=== PATIENT | male | born 1970 | race Caucasian/White ===

== ENCOUNTER 2020-05-02 11:55 | Day surgery (SDC) | payer OTHER, SELFPAY ==
--- NOTE | 2020-05-01 08:47 | HO.ANESPROP2 ---
Documented by User: Ashley Olson 05/01/20 08:48 HPI - Anesthesia Eval Consult details Narrative: 49yo M for Colonoscopy PMFSH Past Medical History Medical History (Updated 04/26/20 @ 14:09 by Natali Ortiz) Depression History of ADHD HTN (hypertension) Surgical History Surgical History (Updated 04/26/20 @ 14:12 by Natali Ortiz) H/O colonoscopy History of repair of ACL Hx of arthroscopy of knee Hx of colectomy Hx of left inguinal hernia repair Social History Social History Smoking Status: Current every day smoker Use of substances other than those prescribed or required for medical reasons: No Have you been hit, kicked, punched, or otherwise hurt by someone within the past year? If so, by whom?: No Advance Directives: No Advance Directives Information Provided: No Advance Directives on File: No Meds Allergies Allergy/AdvReac Type Severity Reaction Status Date / Time amoxicillin [Augmentin] AdvReac Severe Nausea and Verified 04/26/20 10:16 Vomiting clavulanic acid [Augmentin] AdvReac Severe Nausea and Verified 04/26/20 10:16 Vomiting NSAIDS Allergy Intermediate renal Uncoded 04/26/20 10:16 insuff Home Medications Medication Instructions Recorded Confirmed Type allopurinol 1 tab PO DAILY 05/01/20 05/01/20 History aspirin [Aspir-81] 05/01/20 05/01/20 History atenolol 1 tab PO DAILY 05/01/20 05/01/20 History bupropion HCl 1 tab PO DAILY 05/01/20 05/01/20 History buspirone 1 tab PO BID 05/01/20 05/01/20 History dextroamphetamine-amphetamine 1 cap PO QAM 05/01/20 05/01/20 History diphenoxylate-atropine 1 tab PO QID 05/01/20 05/01/20 History indomethacin 1 cap PO TID 05/01/20 05/01/20 History lorazepam 1 tab PO DAILY PRN 05/01/20 05/01/20 History Exam Exam Date and Time: May 01, 2020 0847 Height,Weight and Vital Signs: Height 5 ft 6 in Assessment and Plan Assessment Anesthesia Assessment: Chart Reviewed Documented by User: Ashley Hernández 05/02/20 12:49 PMFSH Past Medical History Medical History (Updated 04/26/20 @ 14:09 by Natali Ortiz) Depression History of ADHD HTN (hypertension) Surgical History Surgical History (Updated 04/26/20 @ 14:12 by Natali Ortiz) H/O colonoscopy History of repair of ACL Hx of arthroscopy of knee Hx of colectomy Hx of left inguinal hernia repair Social History Social History Smoking Status: Current every day smoker Use of substances other than those prescribed or required for medical reasons: No Have you been hit, kicked, punched, or otherwise hurt by someone within the past year? If so, by whom?: No Advance Directives: No Advance Directives Information Provided: No Advance Directives on File: No Meds Allergies Allergy/AdvReac Type Severity Reaction Status Date / Time amoxicillin [Augmentin] AdvReac Severe Nausea and Verified 04/26/20 10:16 Vomiting clavulanic acid [Augmentin] AdvReac Severe Nausea and Verified 04/26/20 10:16 Vomiting NSAIDS Allergy Intermediate renal Uncoded 04/26/20 10:16 insuff Home Medications Medication Instructions Recorded Confirmed Type allopurinol 1 tab PO DAILY 05/01/20 05/01/20 History aspirin [Aspir-81] 05/01/20 05/01/20 History atenolol 1 tab PO DAILY 05/01/20 05/01/20 History bupropion HCl 1 tab PO DAILY 05/01/20 05/01/20 History buspirone 1 tab PO BID 05/01/20 05/01/20 History dextroamphetamine-amphetamine 1 cap PO QAM 05/01/20 05/01/20 History diphenoxylate-atropine 1 tab PO QID 05/01/20 05/01/20 History indomethacin 1 cap PO TID 05/01/20 05/01/20 History lorazepam 1 tab PO DAILY PRN 05/01/20 05/01/20 History Exam Airway Mallampati Class: II TM Dist: >3cm Neck ROM: Full Heart: RRrR Lungs: CtA BL Assessment and Plan Assessment Anesthesia Assessment: Anesthesia Plan Discussed and Chart Reviewed Final Anesthetic Review NPO: Yes (Sipmwater with med) ASA Class: II Final Preanesthetic Review: Meds/Allgs Chart Reviewed and Consent Obtained/Reviewed Patient Risk: Intermediate Procedure Risk: Intermediate Anesthetic Plan Anesthetic Plan: MAC: Disposition: Standard PACU
[2020-05-02 12:08] VITALS: BMI 29.0
[2020-05-02 12:13] VITALS: BP 133/69; PULSE 62; RESP 20; TEMP 36.1; O2SAT 96
[2020-05-02] MEDS: Lactated Ringers 1,000 ML 100 ML IVCONT (12:37)
--- NOTE | 2020-05-02 13:05 | MHC.SHP ---
Pre-Procedural Eval Section A The patient is an INPATIENT: No Changes since office visit: No Cold of Flu in the past 2 weeks, No New Medical Problems, No Changes in Medication and No Patient answered all questions The History & Physical has been completed within 30 days and I have reviewed it.: Yes Section B Chief Complaint: hx of colonic polyps Allergies: Allergies Allergy/AdvReac Type Severity Reaction Status Date / Time amoxicillin [Augmentin] AdvReac Severe Nausea and Verified 04/26/20 10:16 Vomiting clavulanic acid [Augmentin] AdvReac Severe Nausea and Verified 04/26/20 10:16 Vomiting NSAIDS Allergy Intermediate renal Uncoded 04/26/20 10:16 insuff Plan I have reviewed the history and physical and performed a pertinent physical examination on my patient. No changes have occurred unless specified.
--- NOTE | 2020-05-02 13:42 | PM.OP ---
Brief Operative Note Date of Service: 05/02/20 Pre-op diagnosis: screening,juvenile polyposis Post-op diagnosis: same (colon polyp) Procedure: colonoscopy Surgeon: Jus Overton Anesthesia: MAC Estimated blood loss (mL): 0 Pathology: other (polyp cecum) Condition: stable Disposition: PACU
[2020-05-02 13:43] VITALS: BP 104/54; PULSE 57; RESP 14; TEMP 37; O2SAT 98
[2020-05-02 13:58] VITALS: BP 119/68; PULSE 48; RESP 16; TEMP 37; O2SAT 99
--- NOTE | 2020-05-02 17:21 | OP_ITS ---
SURGEON: Jus Overton MD INDICATIONS: Personal history of colon polyps and juvenile polyposis syndrome. PREOPERATIVE DIAGNOSIS: POSTOPERATIVE DIAGNOSIS: PROCEDURE PERFORMED: Colonoscopy to the neoterminal ileum with snare polypectomy. ESTIMATED BLOOD LOSS: COMPLICATIONS: ANESTHESIA: ASSISTANTS: SPECIMENS: MEDICATIONS: Monitored anesthesia care. DESCRIPTION OF PROCEDURE: History and physical performed. The risks and benefits of the procedure were explained to the patient. Informed consent was obtained. The patient was placed in left lateral decubitus position. A digital rectal exam was performed and was found to be normal. The Olympus pediatric video colonoscope was introduced into the rectum and advanced to the ileocolonic anastomosis without difficulty. The neoterminal ileum was examined. Examination was performed and the scope was removed. He tolerated the procedure well and was taken to recovery area in stable condition. FINDINGS: There was a patent anastomosis at about 100 cm from the anal verge. At about 90 cm at the level of what would have been the cecum, there was a 6 to 7 mm polyp, which was removed with a snare and recovered via suction. No other polyps were identified. There was some liquid stool coating the mucosa, limiting the examination for detection of small polyps. Retroflexed examination showed small internal hemorrhoids. IMPRESSION: Colon polyp. RECOMMENDATION: Follow up the biopsy results. MD JOHANNE Enamorado/SHEL / [id number] MTDD
== END 2020-05-02 14:19 | disposition home or self-care (01) ==
PROVIDERS: Visit Provider Internal Medicine Gastroenterology
PROC: 0DJD8ZZ Inspection of Lower Intestinal Tract, Via Natural or Artificial Opening Endoscopic (ICD-10-PCS; CPT 45378; principal; 2020-05-02 13:00)
DX: Z12.11 Encounter for screening for malignant neoplasm of colon (principal); Z86.010 Personal history of colon polyps; D12.0 Benign neoplasm of cecum; K64.8 Other hemorrhoids; Z90.49 Acquired absence of other specified parts of digestive tract; Z98.0 Intestinal bypass and anastomosis status; I10 Essential (primary) hypertension; F31.9 Bipolar disorder, unspecified; Z79.899 Other long term (current) drug therapy; Z79.82 Long term (current) use of aspirin; F17.210 Nicotine dependence, cigarettes, uncomplicated; Z88.1 Allergy status to other antibiotic agents; Z88.8 Allergy status to other drugs, medicaments and biological substances; Z86.16 Personal history of COVID-19
CPT/HCPCS: 45385; 88305

== ENCOUNTER 2020-05-10 11:45 | Outpatient (REF) | payer OTHER, SELFPAY ==
--- NOTE | 2020-05-10 11:48 | XR_ITS ---
EXAMINATION: XR LUMBOSACRAL SPINE CLINICAL INFORMATION: Lower back pain COMPARISON: None TECHNIQUE: Three views of the lumbosacral spine. FINDINGS: No fracture or subluxation. Vertebral body height and alignment is maintained. Mild disc space narrowing of L4-L5 and L5-S1. Small endplate osteophytes of the lower lumbar spine with mild facet arthropathy. The sacroiliac joints are symmetric. The visualized sacrum is intact. The bowel gas pattern is unremarkable. XR/XR lumbar spine 2-3V IMPRESSION: Mild degenerative changes of the lower lumbar spine.
== END 2020-05-10 11:46 | disposition home or self-care (01) ==
LOC: HO.HMGCX 11:45
PROVIDERS: Visit Provider Physician Assistant
DX: M54.5 Low back pain (principal)
CPT/HCPCS: 72100

== ENCOUNTER 2022-02-14 12:45 | Emergency (ER) | payer OTHER, SELFPAY ==
[2022-02-14 13:04] VITALS: BP 184/110; BP 187/104; PULSE 101; PULSE 93; RESP 22; TEMP 36.5; O2SAT 100; O2SAT 99; BMI 33.0
--- NOTE | 2022-02-14 13:08 | ED_ITS ---
HPI - General Adult General Chief complaint: ETOH/Substance Use Stated complaint: ?ETOH WITHDRAWAL Time Seen by Provider: 02/14/22 13:07 Source: patient and EMS Mode of arrival: EMS Limitations: no limitations History of Present Illness HPI narrative: Patient is a 51 year old assigned male at with a history of alcohol abuse presenting to the emergency department today for possible alcohol withdrawal. Patient states that he was sober for over a year and 5 days ago, he relapsed. Patient states that he is concerned he is going into withdrawal because he has not had a drink for 3 hours. Patient states that he would just like 1 dose of ativan and then go home to find out patient rehab services for himself. Patient denies any dizziness, lightheadedness, abdominal pain, nausea, vomiting, fever, chills, blurry vision, double vision, loss of vision, chest pain, difficulty breathing, shortness of breath, back pain, night sweats, pain with urination, increased urinary frequency, increased urinary urgency, blood in his urine or stool, syncope or a near syncopal episode, recent trauma or falls, bowel incontinence, bladder incontinence, bowel retention, bladder retention, or any other complaints at this time. Onset (ago): hour(s) Severity: mild Severity scale (1-10): 2 Relieving factors: none Exacerbating factors: none Associated symptoms: denies other symptoms Treatments prior to arrival: none Related Data Home Medications Medication Instructions Recorded Confirmed aspirin 81 mg tablet,delayed 05/01/20 12/16/20 release atenolol 100 mg tablet 1 tab PO DAILY 05/01/20 12/16/20 bupropion HCl 300 mg 24 hr tablet, 1 tab PO DAILY 05/01/20 12/16/20 extended release lorazepam 0.5 mg tablet 1 tab PO DAILY PRN Sexual Activity 05/01/20 12/16/20 dextroamphetamine-amphetamine ER 15 mg PO DAILY 05/10/20 12/16/20 15 mg 24hr capsule,extend release (Adderall XR) pramipexole 0.5 mg tablet (Mirapex) 0.5 mg PO BEDTIME 12/06/20 12/16/20 Allergies Allergy/AdvReac Type Severity Reaction Status Date / Time amoxicillin [Augmentin] AdvReac Severe Nausea and Verified 02/14/22 13:04 Vomiting clavulanic acid [Augmentin] AdvReac Severe Nausea and Verified 02/14/22 13:04 Vomiting NSAIDS Allergy Intermediate renal Uncoded 04/26/20 10:16 insuff Review of Systems Constitutional: Constitutional: Reports no additional constitutional complaints, Denies chills, Denies fever(s) and Denies night sweats Eyes: Eyes: Reports no additional eye complaints, Denies blurry vision, Denies change in vision, Denies diplopia, Denies eye discharge, Denies loss of vision and Denies eye pain ENT: Denies dizziness Cardiovascular: Cardiovascular: Reports no additional cardiovascular complaints, Denies chest pain, Denies lightheadedness, Denies Loss of Consciousness and Denies dyspnea Respiratory: Respiratory: Reports no additional respiratory complaints and Denies dyspnea Gastrointestinal: Gastrointestinal: Reports no additional gastrointestinal com plaints, Denies abdominal pain, Denies melena, Denies hematochezia, Denies change in bowel habits and Denies change in stool character Genitourinary: Genitourinary: Reports no additional male genitourinary complaints, Denies hematuria, Denies oliguria, Denies difficulty urinating, Denies dysuria, Denies urinary frequency, Denies urinary hesitancy, Denies urinary incontinence and Denies urinary urgency Musculoskeletal: Musculoskeletal: Reports no additional musculoskeletal complaints, Denies numbness and Denies tingling Neurologic: Denies dizziness, Denies loss of vision, Denies numbness and Denies tingling Psychiatric: Psychiatric: Reports no additional psychiatric complaints and Reports anxiety Endocrine: Endocrine: Reports no additional endocrine complaints Hematologic/Lymphatic: Hematologic/Lymphatic: Reports no additional hematologic/lymphatic complaints Allergic/Immunologic: Allergic/Immunologic: Reports no additional allergic/immunologic complaints [facility] Past Medical History Attestation statement: The following information was validated with the patient. Source: old records reviewed Medical History Depression History of ADHD History of COVID-19 HTN (hypertension) Surgical History H/O colonoscopy History of repair of ACL Hx of arthroscopy of knee Hx of colectomy Hx of left inguinal hernia repair Social History Social History Advance Directives: No Advance Directives Information Provided: Yes Physical Exam ED Vital Signs: Vital Signs - 24 hr 02/14/22 13:04 Temperature 97.7 F Pulse Rate 101 H Respiratory Rate 22 H Blood Pressure 187/104 H Pulse Oximetry 99 Oxygen Delivery Method Room Air BMI result Body Mass Index 33.0 Const General: cooperative, no acute distress, alert and awake Nutritional Appearance: well nourished Orientation/consciousness: patient oriented x3 Limitations: no limitations HENMT Head: Yes normal to inspection and Yes atraumatic Ears: hearing grossly normal bilaterally and external ears normal General nose exam: Normal external nose present, no nasal discharge noted and no epistaxis Face and sinus: Yes normal facial exam, No abrasion and No laceration Mouth: Normal oral and palatal mucosa present, no drooling and no muffled voice Eyes General: appearance normal, both eyes and all related structures Periorbital: periorbital findings normal Eyelids: Yes eyelids normal Conjunctivae: conjunctivae normal Pupils: Equal, round and reactive pupils present EOM: EOMs intact bilaterally Neck Neck: Yes normal visual inspection, Yes full ROM and Yes no lymphadenopathy Chest Chest palpation & inspection: normal inspection of the chest Resp Effort & Inspection: normal respiratory effort and able to speak in complete sentences Auscultation: clear to auscultation bilaterally Cardio Rate: regular rate Rhythm: regular rhythm GI Inspection: Yes normal to inspection Neuro General: patient oriented x3 and moves all extremities Cranial nerves: Yes Equal, round and reactive pupils present Cognition (Neuro): normal cognition Motor exam (neuro): 5/5 motor strength present throughout Sensory Exam: Normal double simultaneous stimulation for sensation Coordination: [id number] test normal Extrem General: Yes normal to inspection, Yes full ROM and Yes capillary refill normal Psych Appearance: grossly normal Mental Status: mental status grossly normal Affect: normal affect, Animated affect present and Anxious affect present Attitude: cooperative Thought process: Normal thought process present Thought content: Normal thought content present Insight: Good insight present (Psych) Medications Administered Discontinued Medications Generic Name Dose Route Start Last Admin Trade Name Freq PRN Reason Stop Dose Admin Lorazepam 2 mg 02/14/22 13:19 02/14/22 13:24 Lorazepam 1 Mg Tablet PO 02/14/22 13:20 2 mg ONCE ONE Administration Medical Decision Making MDM Narrative Medical decision making narrative: Patient is a 51 year old assigned male at with a history of alcoholism and alcohol withdrawal without seizures presenting to the emergency department today with possible alcohol withdrawal. Patient's physical exam showed an anxious and somewhat animated individual. Patient refused all blood work. I gave the patient a dose of PO Ativan and he immediately requested to leave. Patient was clinically sober, of sound decision making capacity, and of no danger to himself or others. Patient arrived via EMS and did not drive himself. Security volunteered to arrange him a ride home. I explained my physical exam findings to the patient. I answered all questions asked by the patient. I stressed the importance of the patient taking his medication as prescribed. I stressed the importance of the patient following up with his primary care provider. I stressed the importance of the patient returning to the emergency department immediately if his symptoms were to worsen or if he were to develop any dizziness, shortness of breath, difficulty breathing, chest pain, blurry vision, loss of vision, nausea, vomiting, abdominal pain, fever, chills, back pain, or any other complaints. Patient verbalized agreement and understanding with this treatment plan and discharge. Medical Records Medical records reviewed: Yes I reviewed the patient's medical records. Discharge Plan Discharge Clinical Impression: Alcoholic intoxication Patient Disposition: Home, Self-Care Instructions: Alcohol Intoxication (ED) Additional Instructions: Follow up with your primary care provider. Return to the emergency department immediately if your symptoms worsen or if you develop any dizziness, shortness of breath, difficulty breathing, chest pain, blurry vision, loss of vision, tere[place] sea, vomiting, abdominal pain, fever, chills, back pain, or any other complaints. Prescriptions: No Action atenolol 100 mg tablet 1 tab PO DAILY lorazepam 0.5 mg tablet 1 tab PO DAILY PRN (Reason: Sexual Activity) bupropion HCl 300 mg tablet extended release 24 hr 1 tab PO DAILY aspirin 81 mg Tablet,Delayed Release (Dr/Ec) dextroamphetamine-amphetamine [Adderall XR] 15 mg capsule,extended release 24hr 15 mg PO DAILY pramipexole [Mirapex] 0.5 mg tablet 0.5 mg PO BEDTIME Referrals: Shauna Hale MD [Primary Care Provider] - Interventions: ED Discharge Assessment Last Done: 02/14/22 14:28 Discharge Date/Time: 02/14/22 14:28 Print Language: Arabic
--- NOTE | 2022-02-14 13:19 | ECG_ITS ---
Test Reason : HTN Blood Pressure : / mmHG Vent. Rate : 083 BPM Atrial Rate : 083 BPM P-R Int : 170 ms QRS Dur : 080 ms QT Int : 382 ms P-R-T Axes : 033 013 034 degrees QTc Int : 448 ms Poor data quality Normal sinus rhythm Possible Left atrial enlargement Borderline ECG When compared with ECG of 10-OCT-2018 21:06, Heart rate has decreased Referred By: Fiordaliza Lawson Electronically Signed By:ED GUEVARA MD
--- OUTSIDE RECORDS SUMMARY | 2022-02-14 13:23 | XMS_ITS | Continuity of Care Document ---
:1970 [facility] Address [address] [id number]- Care Team Providers Name Role Phone Job Robison MD Primary Care Physician Encounter [facility] Date(s): 03/22/21 - 04/21/[facility] [address] [place], [place] [id number]- [place] Allergies, Adverse Reactions, Alerts Substance Reaction Severity Status Augmentin Active Medications atenolol 100 mg oral tablet 1 tablet = 100 mg, By Mouth, Daily, # 90 tablet, 3 Refills, Maintenance, 04/18/21 9:44:00 EST, Tablet, [facility]/pharmacy #[id number], Partial fill upon patient request if the prescription is for a schedule II opioid drug. Start Date: 04/18/21 Status: OrderedKLONopin Tablet = 1 mg, By Mouth, 2 times a day, 0 Refills, Maintenance Start Date: 04/22/11 Status: OrderedLithium 900 mg, By Mouth, Daily, Maintenance, 04/22/11 14:40:03 Start Date: 04/22/11 Status: OrderedMethadone = 10 mg, By Mouth, 3 times a day, PRN Pain , Mild, 0 Refills, Maintenance Start Date: 04/22/11 Status: OrderedSertraline = 75 mg, By Mouth, Daily, 0 Refills, Maintenance Start Date: 05/06/11 Status: Ordered
--- OUTSIDE RECORDS SUMMARY | 2022-02-14 13:23 | XMS_ITS | Continuity of Care Document ---
:1970 Author Organization [facility] Address [address] [place] [address]- Care Team Providers Name Role Phone Job Robison MD Primary Care Physician Encounter [facility] NBR [id number] Date(s): 11/13/21 - 12/13/21 [facility] [address] Attending Physician: Alissa Lynch Admitting Physician: AdmtrAlissa Referring Physician: Admtr ArSeferino Allergies, Adverse Reactions, Alerts Substance Reaction Severity Status Augmentin Active Medications atenolol 100 mg oral tablet 1 tablet = 100 mg, By Mouth, Daily, # 90 tablet, 3 Refills, Maintenance, 04/18/21 9:44:00 EST, Tablet, [facility]/pharmacy #[id number], Partial fill upon patient request if the [...] Refills, Maintenance Start Date: 05/06/11 Status: Ordered Care Team PersonnelName: Job Robison MD Address: [address] [place], [place] [address] [place], [place] [address]
--- OUTSIDE RECORDS SUMMARY | 2022-02-14 13:23 | XMS_ITS | Continuity of Care Document ---
:1970 Author Organization [facility] [employer] [facility] Address [address] [phone]- Care Team Providers Name Role Phone Job Robison MD Primary Care Physician Encounter [facility] Date(s): 04/18/21 - 04/25/21 [facility] [facility] [address] [place], [place] [id number]- Attending Physician: Job Robison MD Allergies, Adverse Reactions, Alerts Substance Reaction Severity Status Augmentin Active Medications atenolol 100 mg oral tablet 1 tablet = 100 mg, By Mouth, Daily, # 90 tablet, 3 Refills, Maintenance, 04/18/21 9:44:00 EST, Tablet, [facility]/pharmacy #[id number], Partial fill upon patient request if the [...] Refills, Maintenance Start Date: 05/06/11 Status: Ordered Procedures Procedure Date Related Diagnosis Body Site Status History of knee surgery Comp leted Recurrent right inguinal hernia Completed Right colectomy Completed
--- OUTSIDE RECORDS SUMMARY | 2022-02-14 13:23 | XMS_ITS ---
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 [address] Nov, [facility] [address] [place], [place] syndrome with di arrhea [address] K58.[address] [place] [address] August, [facility] [address] [place] syndrome with di arrhea [address] K58.[address] [place] [address] Apr, [facility] [address] [place] [address] [facility] [place] [address] [place] [address] Apr, Juvenile polypo sis [place], [place] [phone] syndrome D 12.6 and Colon polyps K63 .5 [facility] [address] Apr, [facility] [address] [place] [address] [facility] [address] Apr, Ju venile polyposis [facility] [address] [place] syndrome D12.6 ; [address] Irritable bowel syndrome with di arrhea K58.0 and Person al history of colon ic polyps Z86.010 [facility] [address] Apr, [facility] [address] [place] [address] [facility] [address] Apr, [facility] [address] [place] syndrome with di arrhea [address] K58.0 [place] [address] Dec, [facility] [address] [place] syndrome with di arrhea [address] [facility] [address] Jul, [facility] [address] [place] syndrome with di arrhea [address] [facility] [address] Feb, [facility] [address] [place] [address] [facility] [address] Feb, [facility] [address] [place] syndrome with di arrhea [address] K58.0 and Juveni le polyposis syndro me D12.6 [facility] [address] Jan, [facility] [address] [place] syndrome with di arrhea [address] [facility] [address] Oct, [facility] [address] [place] [address] [facility] [address] Dec, [facility] [address] [place] syndrome with di arrhea [address] K58.0 [facility] [place] [place] [address] [facility] Dec, Juvenile polypo [place]enn [place] [phone] syndrome D 12.6 and Personal history of colonic polyps Z 86.010 [facility] [address] Jul, [facility] [address] [place] syndrome with di arrhea [address] K58.0 [facility] [address] Jan, [facility] [address] [place] syndrome with di arrhea [address] K58.0 and Juveni le polyposis syndro me D12.6 [facility] [address] Mar, [facility] [address] [place] syndrome with di arrhea [address] K58.0 [facility] [address] Jul, [facility] [address] [place] [address] [facility] [address] Jul, [facility] [address] [place] [address] [facility] [address] Jul, [facility] [address] [place] syndrome with di arrhea [address] K58.0 and Juveni le polyposis syndro me D12.6 [facility] [address] Jul, [facility] [address] [place] [address] [facility] [address] Jun, [facility] [address] [place] [address] [facility] [address] Jul, Di arrhea 787.91 and [facility] [address] [place] [address] syndrome 211.3 [facility] [address] Jun, Di arr[place] 787.91 [facility] [address] [place] [address] [facility] [address] Nov, [facility] [address] [place] [address] [facility] [address] Nov, Di arrhea 787.91 [facility] [address] [place] [address] [facility] [address] August, [facility] [address] [place] [address] [facility] [address] Jun, [facility] [address] [place] [address] [facility] [address] Apr, [facility] [address] [place] [address] [facility] [place] [address] [place], [place] [phone] [facility] [place] [address] [facility] Feb, [place], [place] [phone] IMMUNIZATIONS Vaccine Route Administration Date Status Influenza Unknown Jan 05, 2020 Administered Influenza Unknown Jan 04, 2019 Administered SOCIAL HISTORY Qualifiers Date Current Smoker REASON FOR REFERRAL FUNCTIONAL STATUS PLAN OF CARE Activity Details Follow Up prn Reason: Future/Pending Procedure COLONOSCOPY 20200420 Future/Pending Procedure COLONOSCOPY 20200419 Future/Pending Procedure COLONOSCOPY 20170123 VITAL SIGNS Weight 200 lbs 2020-04-19 Weight 184 lbs 2019-02-10 Weight 188 lbs 2017-01-23 Weight 192 lbs 2015-07-18 Weight 202 lbs 2014-07-06 Weight 195 lbs 2013-11-09 Height 68.5 in 2020-04-19 Height 68.5 in 2019-02-10 Height 68.5 in 2017-01-23 Height 68.5 in 2015-07-18 Height 68.5 in 2014-07-06 Height 68.5 in 2013-11-09 BMI 29.96 kg/m2 2020-04-19 BMI 27.57 kg/m2 2019-02-10 BMI 28.17 kg/m2 2017-01-23 BMI 28.77 kg/m2 2015-07-18 BMI 30.26 kg/m2 2014-07-06 BMI 29.22 kg/m2 2013-11-09 Heart Rate 56 /min 2017-01-23 Heart Rate 62 /min 2013-11-09 Temperature 98 degrees Fahrenheit 2020-04-19 Blood pressure systolic 000 mm Hg 2020-04-19 Blood pressure diastolic 000 mm Hg 2020-04-19 MEDICATIONS Medication Instructions Dosage Frequency Start End Date Duration Stat us Date MiraLax (colon orally begin at mixed with Apr, day Active prep) 8.3 5:00 p.m. the Gatorade or 2020 ounce ((238) day before the Crystal grams procedure Light Tenormin 50 MG Orally Once a 1 tablet 24h Ac tive day Lomotil Orally Four 1 tablet as 6h Oct, days Active 2.5-0.025 MG times a day needed 2021 Active buPROPion HCl Orally Once a 1 tablet 24h Act noah ER (XL) 450 MG day Adderall 10 MG Orally Once a 1 tablet in 24h Active day the morning PROCEDURES Procedure Date Ordered Result Body Site TOBACCO NON-USER Apr 19, 2020 BP NOT ASSESS PATIENT NOT ELIGIBLE Apr 19, 2020 DOC MEDS VERIFIED W/PT OR RE Apr 19, 2020 LESION REMOVAL COLONOSCOPY May 02, 2020 RESULTS Name Result Date Reference Range Pathology 2020-05-02 GI BIOPSY 2018-01-01 G.I. BIOPSY ELECTROLYTES 2017-12-17 NA 139 135-145 K 5.0 3.3-5.1 CL 103 96-108 CO2 30 22-29 ANION GAP 11 12-20 BUN 2017-12-17 BUN 16 9-16 CREATININE 2017-12-17 CREATININE 1.52 0.5-1.4 ESTIMATED GFR 49 REASON FOR VISIT R/F REQUEST LOMOTIL, refill on Lomotil , LOMOTIL refill, refill lomotil, pathology, ayla polyposis, personalhx polyps, prior auth, PATIENT PRESENTS TODAY FOR OFFICE RECALL,IBS , COVID Ques. , refill - lomotil , Rx renewal, refill request lomotil, one year office recall, patient presents today forf/u IBS, refill request, Lomotil Rx, Renew Lomotil, Juvenile polyposis syndrome, r/f request on lomotil, patient presents today for office recall for IBS, OFFICE RECALL, refill request/ Lomitil, 1 yearf/u, RE: [employer] referral, 1 year f/u, Reschedule OV, needs new script, follow up, needs refill, 6 month f/u, ? Ins Billing Address, diarrhea, colorectal cancer screening, No Show, needs to r/s appointment, no show, Pre-Colon Insurance Providers [facility] Health Member Patient Patient Patient Patient Patient Subscriber Subscriber Subscriber Group Insurance Plan Plan Plan Plan ID Relationship Address Phone Name Date of ID Name Date of No Type Insurance Insurance Insurance Coverage to Subscriber Address Phone Name Dates [facility] [phone] HEALTH NEW self [place] [id number] 23 [id number] D[facility] [address] [address] [facility] [address] [facility] [address] PHCS [address] PHCS self [place] [id number] [place] [address] [employer] MEDI [phone] [employer] MEDI self [place]KE 1970 [id number] COMPLETE [id number] [place] 10 COMPLETE VIDA (REFERRAL [place] (REFERRAL REQUIRED) [place] [address] REQUIRED) HEALTH NEW ONE [phone] HEALTH NEW self [place] [id number] 23 [id number] [facility] [address] [facility] [address] [facility] [address] Network [address] Network self [place] [id number] Health-FOR [id number] Health-FOR [facility] [address]
[2022-02-14] MEDS: LORazepam 1 MG TABLET 2 MG PO (13:24)
== END 2022-02-14 14:28 | disposition home or self-care (01) ==
PROVIDERS: Emergency Provider Emergency Medicine; PCP Internal Medicine
DX: F10.239 Alcohol dependence with withdrawal, unspecified (principal); Y90.9 Presence of alcohol in blood, level not specified; I10 Essential (primary) hypertension; F41.9 Anxiety disorder, unspecified; Z79.899 Other long term (current) drug therapy
CPT/HCPCS: 93005; 99283

== ENCOUNTER 2022-02-26 06:19 | Outpatient (REF) | payer OTHER, SELFPAY | END 2022-02-26 06:20 | disposition home or self-care (01) | LOC: HO.HOSX 06:19 | PROVIDERS: Visit Provider Physician Assistant | DX: Z13.89 Encounter for screening for other disorder (principal) ==

== ENCOUNTER 2023-08-19 12:06 | Day surgery (SDC) | payer OTHER, SELFPAY ==
--- NOTE | 2023-08-18 10:00 | HO.ANESPROP2 ---
Documented by User: Ashley Olson NP 08/18/23 10:00 HPI - Anesthesia Eval Consult details Narrative: 52yo M for Colonoscopy PMFSH Active Problems Active Problems: All Active Problems Alcohol use disorder (Acute) Depression (Acute) History of COVID-19 (Acute) Low back pain (Acute) Past Medical History Medical History Depression History of ADHD History of COVID-19 HTN (hypertension) Surgical History Surgical History H/O colonoscopy History of repair of ACL Hx of arthroscopy of knee Hx of colectomy Hx of left inguinal hernia repair Social History Social History Patient Tobacco Use Status: Current everyday Tobacco user Tobacco use type: Cigarette Cigarette Packs Per Day: 0.5 Cigarettes Per Day: 10.0 Use of substances other than those prescribed or required for medical reasons: No Are you DNR?: No Advance Directives: No Advance Directives Information Provided: Yes Meds Allergies Allergy/AdvReac Type Severity Reaction Status Date / Time amoxicillin [Augmentin] AdvReac Severe Nausea and Verified 02/14/22 13:04 Vomiting clavulanic acid [Augmentin] AdvReac Severe Nausea and Verified 02/14/22 13:04 Vomiting NSAIDS Allergy Intermediate renal Uncoded 04/26/20 10:16 insuff Home Medications ?Medication ?Instructions ?Recorded ?Confirmed ?Last Taken ?Type aspirin 81 mg tablet,delayed 05/01/20 12/16/20 04/26/20 History release atenolol 100 mg tablet 1 tab PO DAILY 05/01/20 12/16/20 05/02/20 History bupropion HCl 300 mg 24 hr tablet, 1 tab PO DAILY 05/01/20 12/16/20 Unknown History extended release lorazepam 0.5 mg tablet 1 tab PO DAILY PRN Sexual Activity 05/01/20 12/16/20 Unknown History dextroamphetamine-amphetamine ER 15 mg PO DAILY 05/10/20 12/16/20 Unknown History 15 mg 24hr capsule,extend release (Adderall XR) pramipexole 0.5 mg tablet (Mirapex) 0.5 mg PO BEDTIME 12/06/20 12/16/20 Unknown History Assessment and Plan Assessment Anesthesia Assessment: Chart Reviewed Documented by User: Ed Romero MD 08/19/23 13:11 PMFSH Past Medical History Medical History Depression History of ADHD History of COVID-19 HTN (hypertension) Family History Family history of problems with anesthesia: No Surgical History Surgical History H/O colonoscopy History of repair of ACL Hx of arthroscopy of knee Hx of colectomy Hx of left inguinal hernia repair History of Problems with Anesthesia: No Social History Social History Patient Tobacco Use Status: Current everyday Tobacco user Tobacco use type: Cigarette Cigarette Packs Per Day: 0.5 Cigarettes Per Day: 10.0 Use of substances other than those prescribed or required for medical reasons: No Are you DNR?: No Advance Directives: No Advance Directives Information Provided: Yes Meds Allergies Allergy/AdvReac Type Severity Reaction Status Date / Time amoxicillin [Augmentin] AdvReac Severe Nausea and Verified 02/14/22 13:04 Vomiting clavulanic acid [Augmentin] AdvReac Severe Nausea and Verified 02/14/22 13:04 Vomiting NSAIDS Allergy Intermediate renal Uncoded 04/26/20 10:16 insuff Home Medications ?Medication ?Instructions ?Recorded ?Confirmed ?Last Taken ?Type aspirin 81 mg tablet,delayed 05/01/20 12/16/20 04/26/20 History release atenolol 100 mg tablet 1 tab PO DAILY 05/01/20 12/16/20 05/02/20 History bupropion HCl 300 mg 24 hr tablet, 1 tab PO DAILY 05/01/20 12/16/20 Unknown History extended release lorazepam 0.5 mg tablet 1 tab PO DAILY PRN Sexual Activity 05/01/20 12/16/20 Unknown History dextroamphetamine-amphetamine ER 15 mg PO DAILY 05/10/20 12/16/20 Unknown History 15 mg 24hr capsule,extend release (Adderall XR) pramipexole 0.5 mg tablet (Mirapex) 0.5 mg PO BEDTIME 12/06/20 12/16/20 Unknown History Exam Airway Mallampati Class: II TM Dist: >3cm Neck ROM: Full Loose/Missing/Broken Teeth: No Heart: rrr Lungs: cta Assessment and Plan Assessment Anesthesia Assessment: Anesthesia Plan Discussed Final Anesthetic Review Family History of Problems with Anesthesia: No History of Problems with Anesthesia: No NPO: Yes ASA Class: II and III Final Preanesthetic Review: No Changes in Pt Med Stat, Meds/Allgs Chart Reviewed, Consent Obtained/Reviewed and Anes Risks/Benef Reviewed Patient Risk: Intermediate Procedure Risk: Intermediate Anesthetic Plan Anesthetic Plan: MAC: Disposition: Standard PACU
[2023-08-19 12:12] VITALS: BMI 32.8
[2023-08-19 12:21] VITALS: BP 138/70; PULSE 61; RESP 16; TEMP 37.4; O2SAT 97
[2023-08-19] MEDS: Lactated Ringers 1,000 ML 100 ML IVCONT (12:33)
--- NOTE | 2023-08-19 13:13 | MHC.SHP ---
Pre-Procedural Eval Section A - 24 Hr Update-Section A only Date of Service: 08/19/23 Section B - Complete if H&P > 30 days Chief Complaint: IBS,screening Details of Present Illness: see H&P no changes Relevant Family History (Specify if Yes): No Relevant Social History: None Present Medications: see Short Stay Collaborative assessment Medical History: No relevant PMH History of Previous Operations: No relevant previous surgery Allergies: Allergies Allergy/AdvReac Type Severity Reaction Status Date / Time amoxicillin [Augmentin] AdvReac Severe Nausea and Verified 02/14/22 13:04 Vomiting clavulanic acid [Augmentin] AdvReac Severe Nausea and Verified 02/14/22 13:04 Vomiting NSAIDS Allergy Intermediate renal Uncoded 04/26/20 10:16 insuff Review of Systems Sugical H&P ROS: Negative: Constitution, Cardiovascular, Respiratory, Neurological, Psychiatric, Hem-Onc, Allergic/Immunologic, Gastrointestinal, Genitourinary, Musculoskeletal, Integumentary, Endocrine and Eyes/Ears/Nose/Throat Exam Surgical H&P Exam: Normal: HEENT, Normal: Heart, Normal: Lungs, Normal: Extremities, Normal: Abdomen, Normal: Skin and Normal: Neurological Plan Diagnosis/Plan: Unchanged I have reviewed the history and physical and performed a pertinent physical examination on my patient. No changes have occurred unless specified. Time Spent With Patient Time: Total time managing care of this patient today ____ minutes.
[2023-08-19 13:58] VITALS: BP 96/43; PULSE 59; RESP 18; TEMP 36.1; O2SAT 95
[2023-08-19 14:13] VITALS: BP 103/53; PULSE 60; RESP 20; TEMP 36.9; O2SAT 96
--- NOTE | 2023-08-19 16:06 | OP_ITS ---
DATE OF SERVICE: 08/19/2023 SURGEON: Jus Overton MD INDICATIONS: Colon cancer screening and prior history of juvenile polyposis as well as colon polyps. PREOPERATIVE DIAGNOSIS: POSTOPERATIVE DIAGNOSIS: PROCEDURE PERFORMED: Colonoscopy to the neoterminal ileum with biopsy. ESTIMATED BLOOD LOSS: COMPLICATIONS: ANESTHESIA: Monitored anesthesia care. ASSISTANTS: SPECIMENS: DESCRIPTION OF PROCEDURE: A history and physical was performed. The risks and benefits of the procedure were explained to the patient and informed consent was obtained. The Olympus pediatric video colonoscope was introduced into the rectum and advanced to the neoterminal ileum. Examination was performed and the scope was removed. He tolerated the procedure well and was returned to recovery are in stable condition. FINDINGS: The neoterminal ileum was normal. There was an ileocolonic anastomosis at 80 cm with a focal area of ulceration measuring approximately 5 to 6 mm. This was biopsied. There was no evidence of Crohn disease. There was some liquid stool, mainly in the right colon and descending colon, which was washed and suctioned, but did limit the sensitivity examination for detection of small polyps. Mild sigmoid diverticulosis was noted. There was a single polyp in the rectum measuring less than 5 mm, which was removed with the biopsy forceps. Retroflexed examination showed some small internal hemorrhoids. IMPRESSION: 1. Colonic ulcer at ileocolonic anastomosis, likely ischemic. 2. Colon polyp. RECOMMENDATIONS: 1. Follow up the biopsy results. 2. Consider repeat colonoscopy in 3 years based with 2-day prep based on limitations of today's prep. MD JOHANNE Enamorado/SHEL / [id number] MTDD
== END 2023-08-19 14:53 | disposition home or self-care (01) ==
PROVIDERS: Visit Provider Internal Medicine Gastroenterology
PROC: 0DJD8ZZ Inspection of Lower Intestinal Tract, Via Natural or Artificial Opening Endoscopic (ICD-10-PCS; CPT 45378; principal; 2023-08-19 13:00)
DX: Z12.11 Encounter for screening for malignant neoplasm of colon (principal); K63.3 Ulcer of intestine; K62.1 Rectal polyp; K57.30 Diverticulosis of large intestine without perforation or abscess without bleeding; K64.8 Other hemorrhoids; K58.0 Irritable bowel syndrome with diarrhea; Z86.010 Personal history of colon polyps; I10 Essential (primary) hypertension; Z79.82 Long term (current) use of aspirin; Z79.899 Other long term (current) drug therapy; Z98.0 Intestinal bypass and anastomosis status
CPT/HCPCS: 45380; 88305; J2371; J2704

== ENCOUNTER 2024-05-26 11:03 | Outpatient (AMB) | payer OTHER, SELFPAY ==
--- NOTE | 2024-05-26 11:06 | MHC.OFFWIV ---
Intake Vital Signs 05/26/24 11:07 Weight 200 lb BP 132/80 Blood Pressure Location Lt brachial Position Sitting Pulse 62 Pulse Source Pulse Oximeter Pulse Oximetry (%) 99 Oxygen Delivery Method Room Air Intake Visit Reasons: EP-fatigue, Intake Note: Patient here for fatigue after having some sort of cold last week. Patient Tobacco Use Status: Current everyday Tobacco user Allergies amoxicillin [Augmentin] Adverse Reaction (Severe, Verified 05/26/24 11:08) Nausea and Vomiting clavulanic acid [Augmentin] Adverse Reaction (Severe, Verified 05/26/24 11:08) Nausea and Vomiting NSAIDS Allergy (Intermediate, Uncoded 05/26/24 11:08) renal insuff Do you need a note to return to daycare/school/sports/work: Yes HPI HPI Comments History of Present Illness Details 53 y/o male patient who presents to the walk in clinic asking for a work Note. Pt had been home for few days sick and now feels good. He needs a Note to clear him back to work. PFSH Medical History Depression History of ADHD History of COVID-19 HTN (hypertension) Surgical History H/O colonoscopy History of repair of ACL Hx of arthroscopy of knee Hx of colectomy Hx of left inguinal hernia repair Social History Patient Tobacco Use Status: Current everyday Tobacco user Tobacco use type: Cigarette Cigarette Packs Per Day: 0.5 Cigarettes Per Day: 10.0 Review of Systems Const All systems reviewed & are unremarkable except as noted in HPI and below Physical Exam Vital Signs: Last Vital Signs Pulse 62 05/26/24 11:07 BP 132/80 05/26/24 11:07 Pulse Ox 99 05/26/24 11:07 Oxygen Delivery Method Room Air 05/26/24 11:07 Const General: cooperative and no acute distress Orientation/consciousness: patient oriented x3 HEENT Head: Yes normocephalic Ears: external ears normal and TM abnormal with fluid behind the TM bilateral General nose exam: Normal external nose present and No nasal discharge present Face and sinus: Yes sinuses nontender Mouth: moist mucous membranes Throat: Yes uvula midline Resp Effort & Inspection: normal respiratory effort, able to speak in complete sentences and no cough Auscultation: clear to auscultation bilaterally, no crackles, no rales, no rhonchi and no wheezes Cardio Heart sounds: S1 normal heart sound present and S2 normal heart sound present Neuro General: patient oriented x3 Assessment & Plan Assessment & Plan (1) Acute respiratory infection: Code(s): J22 - Unspecified acute lower respiratory infection Plan: Work Note given to patient. Symptoms have resolved Coding Level of Care Code Est Pt Level 4 (60684) Diagnoses Acute respiratory infection J22 Time Spent (min) 20
[2024-05-26 11:07] VITALS: BP 132/80; PULSE 62; O2SAT 99
--- OUTSIDE RECORDS SUMMARY | 2024-05-26 12:24 | XMS_ITS ---
Author Organization [facility] Address [address] [place] [address] Care Team Providers Care Bonding Supervisor Name Role Phone Jus Overton Primary Care Provider Unavaila Jus Garcia Jr Unavailable REASON FOR VISIT refill lomotil MEDICATIONS Medication SIG (Take, Route, Fr equency, Duration) Notes Start Date End Date Status Lomotil 2.5-0.025 MG 1 tablet as needed Orally Four times a day for 30 days 03/02/2024 Active Encounters Encounter Location Date Provider Diagnosis [facility] [address] [place] [phone] 03/01/2024 Jus Overton Jr Irritable bowel syndrome with diarrhea K58.0 ASSESSMENTS Encounter Date Diagnosis Assessment Notes Treatment Notes Treatment Clinical Notes 03/01/2024 Irritable bowel syndrome with diarrhea (ICD-10 - K58.0) PLAN OF TREATMENT Medication Medication Name Sig Start Date Stop Date Notes Lomotil 2.5-0.025 MG 1 tablet as needed Orally Four times a day for 30 days 03/02/2024
--- OUTSIDE RECORDS SUMMARY | 2024-05-26 12:24 | XMS_ITS | Patient Health Record ---
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 Name Role Phone Jus Overton Primary Care Provider Unavaila Jus Garcia Jr Unavailable ALLERGIES Allergen (clinical drug ingredient) Drug/Non Drug Allergy documented on EMR Reaction Allergy Type Onset Date Status amoxicillin / clavulanate Augmentin vomitting Drug Allergy Active RESULTS Component Value Reference Range Notes Pathology Reviewed date:08/26/2023 08:00:15 AM Interpretation: Performing Lab:[facility], [address] [place] [address] Notes/Report: REASON FOR REFERRAL No Information MEDICATIONS Medication SIG (Take, Route, Frequency, Duration) Notes Start Date End Date Status Atenolol 100 MG TAKE 1 TABLET BY HANNAH TH EVERY DAY Oral for 90 Active Diphenoxylate-Atropine 2.5-0.025 MG Oral for 30 Active clonazePAM 0.5 MG Oral for 22 Active Lomotil 2.5-0.025 MG 1 tablet as needed Orally Four times a day for 30 days 03/02/2024 Active Buprenorphine HCl-Naloxone HCl 8-2 MG Sublingual for 30 Active Aspir-81 Active MiraLax (colon prep) 17 GM/SCOOP mixed with Gatorade or Crystal Light Orally begin at 5:00 p.m. the day before the procedure for 1 day 07/08/2023 Active Tenormin 50 MG 1 tablet Orally Once a day Active Adderall 10 MG 1 tablet in the morn ing Orally Once a day Active Testosterone Compounding Kit Active buPROPion HCl ER (XL) 450 MG 1 tablet Or ally Once a day Active IMMUNIZATIONS Vaccine Route Administration Date Status Comme nts Influenza Unknown 01/04/2019 Administered Influenza Unknown 01/05/2020 Administered Influenza Unknown 01/27/2023 Administered SOCIAL HISTORY Tobacco Use: Social History Observation Description Date Details (start date - stop date) Current Smoker NA - NA Sex Assigned At : Social History Observation Description Sex Assigned At Unknown Tobacco Use/Smoking Question Answer Notes Patient is a current smoker How often do you smoke cigarettes? every day How many cigarettes a day do you smoke? 6-10 How soon after you wake up do you smoke your fir st cigarette? 6-30 minutes Are you interested in quitting? 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 3027156 VITAL SIGNS Blood pressure diastolic 00 mm Hg 07/08/2023 Height 68.5 in 07/08/2023 Blood pressure systolic 000 mm Hg 07/08/2023 Weight 204 lb 6 oz lbs 07/08/2023 BMI 30.62 kg/m2 07/08/2023 Encounters Encounter Location Date Provider Diagnosis [facility] Outpatient [address] [place] [phone] 08/19/2023 Jus Overton Jr Encounter for screening colonoscopy Z12.11 ; Colon polyps K63.5 and Adenoma of colon D12.6 [facility] [address] [place] [phone] 07/08/2023 Jus Overton Jr Irritable bowel syndrome with diarrhea K58.0 ; Juvenile polyposis syndrome D12.6 and Colon cancer screening Z12.11 [facility] [address] [place] [phone] 06/04/2023 Jus Overton Jr [facility] [address] [place] [phone] 06/12/2023 Jus Overton Jr Irritable bowel syndrome with diarrhea K58.0 [facility] [address] [place] [phone] 07/23/2023 Jus Overton Jr [facility] [address] [place] [address] 08/26/2023 Jusalonzo Overton Jr [facility] [address] [place] [address] 03/01/2024 Jus Overton Jr Irritable bowel syndrome with diarrhea K58.0 ASSESSMENTS Encounter Date Diagnosis Assessment Notes Treatment Notes Treatment Clinical Notes 08/19/2023 Encounter for screening colonoscopy (ICD-10 - Z12.11) 08/19/2023 Colon polyps (ICD-10 - K63.5) 07/08/2023 Irritable bowel syndrome with diarrhea (ICD-10 - K58.0) 07/08/2023 Juvenile polyposis syndrome (ICD-10 - D12.6) 06/12/2023 Irritable bowel syndrome with diarrhea (ICD-10 - K58.0) 03/01/2024 Irritable bowel syndrome with diarrhea (ICD-10 - K58.0) 08/19/2023 Adenoma of colon (ICD-10 - D12.6) 07/08/2023 Colon cancer screening (ICD-10 - Z12.11) PLAN OF TREATMENT Future Test Test Name Order Date COLONOSCOPY 01/23/2017 COLONOSCOPY 04/19/2020 COLONOSCOPY 04/20/2020 COLONOSCOPY 07/08/2023 Insurance Providers Payer Name Payer Address Payer Phone Subscriber Number Group Number Insured Name Patient Relationship to Insured Coverage Start Date Coverage End Date [facility] [address] [place] [address] [id number] MIKE JUÁREZ Self - patient is the insured 3 MEDICAL (GENERAL) HISTORY Medical History History ICD Code colonoscopy 04/26, tubular ad enoma, three-year followup, history of juvenile polyposis kidney disease alcohol abuse bipolar disorder hypertension Covid 19 infection 03/25 Surgical History Surgery Date(Month/Year) colectomy right knee arthroscopy ACL knee surgery
--- OUTSIDE RECORDS SUMMARY | 2024-05-26 12:24 | XMS_ITS ---
Author Organization [facility] Address [address] [place] [address] Care Team Providers Care Supervisor [employer] Name Role Phone Jus Overton Primary Care Provider Unavaila Jus Garcia Jr Unavailable [phone] REASON FOR VISIT pathology Encounters Encounter Location Date Provider Diagnosis [facility] [address] [place] [address] 08/26/2023 Jus Overton Jr PLAN OF TREATMENT No Information
--- OUTSIDE RECORDS SUMMARY | 2024-05-26 12:24 | XMS_ITS | Clinical Summary ---
Author Organization [facility] Address [address] [place] [address] Care Team Providers Care Phone Banker Name Role Phone Unavailable Primary Care Provider Unavailabl e Social History Tobacco Use Types Packs/Day Years Used Date Smoking Tobacco: Never Assessed Sex and Gender Information Value Date Recorded Sex Assigned at Not on file Legal Sex Male 6:22 AM EST Gender Identity Not on file Sexual Orientation Not on file Plan of Treatment Health Maintenance Due Date Last Done Comments DTaP,Tdap,and Td Vaccines (1 - Tdap) 1989 Hepatitis B Vaccines (1 of 3 - 19+ 3-dose series) 1989 Pneumococcal Vaccine: 50+ Ye ars (1 of 1 - PCV) 2020 Zoster Vaccines (1 of 2) 2020 COVID-19 Vaccine (1 - 2023-2 5 season) 2023 Influenza Vaccine (#1) 2023 HIB Vaccines Aged Out No longer eligi ble based on patient's age to complete this topic HPV Vaccines Aged Out No longer eligi ble based on patient's age to complete this topic Hepatitis A Vaccines Aged Out No long er eligible based on patient's age to complete this topic IPV Vaccines Aged Out No longer eligi ble based on patient's age to complete this topic MMR Vaccines Aged Out No longer eligi ble based on patient's age to complete this topic Meningococcal ACWY Vaccine Aged Out N o longer eligible based on patient's age to complete this topic Meningococcal B Vacine Aged Out No lo nger eligible based on patient's age to complete this topic Pneumococcal Vaccine: Pediat rics (0 to 5 Years) and At-Risk Patients (6 to 64 Years) Aged Out No longer eligible b ased on patient's age to complete this topic RSV Immunization Patients Un magaly 20 months Aged Out No longer eligible b ased on patient's age to complete this topic Varicella Vaccines Aged Out No longer eligible based on patient's age to complete this topic
--- OUTSIDE RECORDS SUMMARY | 2024-05-26 12:24 | XMS_ITS ---
Author Organization [facility] Address [address] [place] [address] Care Team Providers Care Exercise Physiology Professor Name Role Phone Jus Overton Primary Care Provider Unavaila Jus Garcia Jr Unavailable REASON FOR VISIT screening Encounters Encounter Location Date Provider Diagnosis [facility] Outpatient [address] [place] [phone] 08/19/2023 Jus Overton Jr Encounter for screening colonoscopy Z12.11 ; Colon polyps K63.5 and Adenoma of colon D12.6 ASSESSMENTS Encounter Date Diagnosis Assessment Notes Treatment Notes Treatment Clinical Notes 08/19/2023 Encounter for screening colonoscopy (ICD-10 - Z12.11) 08/19/2023 Colon polyps (ICD-10 - K63.5) 08/19/2023 Adenoma of colon (ICD-10 - D12.6) PLAN OF TREATMENT No Information
== END 2024-05-26 11:26 | disposition home or self-care (01) ==
PROVIDERS: Visit Provider Nurse Practitioner Family
DX: J22 Unspecified acute lower respiratory infection (principal)

== ENCOUNTER 2024-11-20 06:47 | Inpatient (IN) | payer OTHER, SELFPAY ==
--- NOTE | ~2024-11-20 | CT_ITS ---
CLINICAL HISTORY: hand numbness CT cervical spine without contrast Comparison: None provided Findings: Mild to moderate multilevel marginal osteophyte formation is present. Multilevel facet arthropathy is also seen. Vertebral body heights are well-maintained. No acute fracture is identified. There is slight grade 1 anterolisthesis of C5 over C6 and slight grade retrolisthesis of C6 over C7. Mild central canal stenosis is seen from C3-C6. Neuroforaminal stenosis is seen at C3/4 bilaterally, at C4/5 on the left, at C5/6 bilaterally, and at C6/7 bilaterally. The thyroid gland appears normal. Emphysematous changes are seen in the lung apices. IMPRESSION: 1. No acute osseous abnormality is identified. 2. [id number] degenerative changes in the cervical spine with multilevel canal and neuroforaminal stenosis as described. This document has been electronically signed by: Enrique Griffith on 11/20/2024 12:42:43
[2024-11-20 06:58] VITALS: BP 161/92; PULSE 87; RESP 20; TEMP 36.6; O2SAT 97
[2024-11-20 07:07] VITALS: BMI 32.2
--- NOTE | 2024-11-20 07:15 | ECG_ITS ---
Test Reason : withdrawl Blood Pressure : */* mmHG Vent. Rate : 79 BPM Atrial Rate : 79 BPM P-R Int : 206 ms QRS Dur : 90 ms QT Int : 386 ms P-R-T Axes : 14 0 7 degrees QTcB Int : 442 ms Normal sinus rhythm Possible Left atrial enlargement Left ventricular hypertrophy ( R in aVL , [place] product ) Abnormal ECG When compared with ECG of 14-Feb-2022 13:26, ST no longer elevated in Inferior leads Non-specific change in ST segment in Lateral leads Referred By: Daniel Watkins Electronically Signed By: Perez Mckeon
--- NOTE | 2024-11-20 07:16 | ED.ALCOHOL ---
HPI - Alcohol General Chief Complaint: ETOH/Substance Use Stated Complaint: ETOH WITHDRAWAL,VIS HALLUCINATIONS,HIGH BP 224/180 Time Seen by Provider: 11/20/24 07:01 Source: patient and EMS Mode of arrival: EMS Limitations: no limitations History of Present Illness ED Provider: DR. Watkins HPI narrative: 53-year-old male history of alcohol abuse stated that he has been drinking for the past few weeks, patient stated that he sees mices in the house but he his cat is not tracing them, patient also sees ants crawling on his leg, patient is unsure if this can be hallucination. Patient had history of alcohol withdrawal in the past, last drink was 3 hours ago. No CP, no SOB, no fever, no chills. Related Data Home Medications ?Medication ?Instructions ?Recorded ?Confirmed aspirin 81 mg tablet,delayed 05/01/20 12/16/20 release atenolol 100 mg tablet 1 tab PO DAILY 05/01/20 12/16/20 lorazepam 0.5 mg tablet 1 tab PO DAILY PRN Sexual Activity 05/01/20 12/16/20 testosterone 100 mg/mL mg IM 05/26/24 intramuscular suspension Allergies Allergy/AdvReac Type Severity Reaction Status Date / Time amoxicillin (Augmentin) AdvReac Severe Nausea and Verified 11/20/24 07:10 Vomiting clavulanic acid (Augmentin) AdvReac Severe Nausea and Verified 11/20/24 07:10 Vomiting NSAIDS Allergy Intermediate renal Uncoded 05/26/24 11:08 insuff Review of Systems Review of Systems: All other systems are reviewed and are negative Constitutional: Reports as per HPI and Reports no additional constitutional complaints Eyes: Reports as per HPI and Reports no additional eye complaints Reports system reviewed and no additional complaints, except as documented Cardiovascular: Reports as per HPI and Reports no additional cardiovascular complaints Respiratory: Reports as per HPI and Reports no additional respiratory complaints Gastrointestinal: Reports as per HPI and Reports no additional gastrointestinal complaints Genitourinary: Reports no additional female genitourinary complaints Musculoskeletal: Reports no additional musculoskeletal complaints Skin/Breast: Reports system reviewed and no additional complaints, except as docu Psychiatric: Reports no additional psychiatric complaints Endocrine: Reports no additional endocrine complaints Hematologic/Lymphatic: Reports no additional hematologic/lymphatic complaints Allergic/Immunologic: Reports no additional allergic/immunologic complaints Reports system reviewed and no additional complaints, except as documented and Reports Abnormal speech present [facility] Past Medical History Medical History History of COVID-19 History of ADHD Depression HTN (hypertension) Surgical History H/O colonoscopy Hx of colectomy Hx of left inguinal hernia repair History of repair of ACL Hx of arthroscopy of knee Social History Social History Patient Tobacco Use Status: Current everyday Tobacco user Tobacco use type: Cigarette Cigarette Packs Per Day: 0.5 Cigarettes Per Day: 10.0 Smoked in Last 30 Days: Yes Advance Directives: No Advance Directives Information Provided: No Physical Exam ED Vital Signs: Vital Signs - 24 hr 11/20/24 06:58 Temperature 97.9 F Pulse Rate 87 Respiratory Rate 20 Blood Pressure 161/92 H Pulse Oximetry 97 Oxygen Delivery Method Room Air BMI result Body Mass Index 32.2 Vital signs have been reviewed and appear to be correct. Blood pressure elevated. Heart rate normal. Respiratory rate normal. Temperature normal. Oxygen saturation normal. Appearance: Alert. Oriented X3. No acute distress. Head: Normal external exam. Normocephalic. Atraumatic. No Steel signs noted. No raccoon eyes noted Eyes: PERRLA. EOMI. Conjunctiva and sclera normal. Eyelids normal. ENT: TM's Normal. Pharynx normal. Uvula midline. Moist mucous membranes. No trismus noted. No drooling noted. No muffled voice noted. Neck: Normal inspection. Neck supple. FROM. No adenopathy. Thyroid Normal. No meningeal signs. No neck mass noted. CVS: Normal heart rate and rhythm. Heart sound normal. No murmurs noted. Pulses normal throughout. Respiratory: No respiratory distress. Painless inspiration. Breath sounds normal. No wheezes/rales/rhonchi noted. Chest nontender. No accessory muscle usage noted or decreased air movement noted. Abdomen: Soft and nontender. Bowel sounds normal in all 4 quadrants. No distention noted. No organomegaly noted. No visible injury noted. Back: No CVA tenderness. Full range of motion noted. Skin: Skin warm and dry. Normal skin color. Normal skin turgor. No rashes/lesions/lacerations noted. Extremities: No lower extremity edema. Extremities exhibit normal range of motion. Extremities nontender. Neuro: Oriented X 3. Cranial nerve exam: II-XII are grossly intact No motor deficit. No sensory deficit. Reflexes normal. Course Reevaluation(s) Reevaluation #1: 53-year-old male chronic alcohol dependence history, last drink was few hours ago, +visual hallucination. Started on phenobarb. Hospitalized. Time: 08:11 Medical Decision Making Differential Diagnosis Differential Diagnoses: The differential diagnosis associated with the presentation includes (Dehydration, electrolyte derangement, severe anemia, alcohol withdrawal.) Admission/Observation Consideration of admission/observation: Escalation of care including admission/observation considered Consult Healthcare Provider Management of the patient was discussed with: Hospitalist (Dr. Paris) Lab Data MDM Lab Attestation statement: I reviewed the patient's lab results. 11/20/24 07:33 11/20/24 07:33 Labs: Lab Results 11/20/24 11/20/24 Range/Units 07:33 07:50 WBC 11.0 H (4.8-10.8) X10*3/uL RBC 4.81 (4.60-5.80) X10*6/uL Hgb 13.8 L (14.0-18.0) g/dl Hct 39.8 L (42.0-52.0) % MCV 82.7 (80.0-98.0) fL MCH 28.7 (27.0-33.0) pg MCHC 34.7 (31.0-36.0) g/dl RDW 16.5 H (11.0-16.0) % Plt Count 273 (160-400) X10*3/uL MPV 9.8 (9.4-12.4) fL Immature Gran % (Auto) 0.5 H (0.0-0.4) % Neut % (Auto) 57.2 (45-73) % Lymph % (Auto) 29.7 (20-40) % Spencer % (Auto) 9.3 (2-11) % Eos % (Auto) 2.8 (0-4) % Baso % (Auto) 0.5 (0-2) % Lymph # (Auto) 3.3 (1.2-4.9) X10*3/uL Spencer # (Auto) 1.0 (0.1-1.2) X10*3/uL Eos # (Auto) 0.3 (0.0-0.4) X10*3/uL Baso # (Auto) 0.1 (0.0-0.2) X10*3/uL Abs Immat Gran (auto) 0.05 H (0.00-0.03) X10*3/uL Absolute Neuts (auto) 6.3 (2.0-8.3) x10*3/uL Absolute Nucleated RBC 0.000 (0.0-0.012) X10*3/uL Nucleated RBC % (auto) 0.0 (0.0-0.2) /100WBC Sodium 140 (135-145) mmol/L Potassium 3.7 (3.3-5.1) mmol/L Chloride 107 (96-108) mmol/L Carbon Dioxide 19 L (22-29) mmol/L Anion Gap 18 (12-20) BUN 8 L (9-16) mg/dL Creatinine 0.72 (0.5-1.4) mg/dL Estim Creat Clear Calc 124.9 Estimated GFR > 60 Random Glucose 89 (60-115) mg/dL Calcium 9.2 (8.4-10.2) mg/dL Magnesium 2.2 (1.6-2.6) mg/dL Total Bilirubin 0.5 (0.0-1.0) mg/dL Direct Bilirubin 0.2 (0.0-0.5) mg/dL AST 48 H (5-37) U/L ALT 74 H (0-40) U/L Alkaline Phosphatase 101 (39-117) U/L Troponin I High Sens 8.8 (<3.5-35.0) ng/L Total Protein 6.7 (6.5-8.0) g/dL Albumin 4.1 (3.5-5.0) g/dL Lipase 44 (8-78) U/L Urine Color Yellow Urine Appearance Clear Urine pH 5.5 (5.0-9.0) Ur Specific [place] <= 1.005 (1.005-1.025) Urine Protein Negative (Neg-Trace) mg/dL Urine Glucose (UA) Negative (Negative) mg/dL Urine Ketones Negative (Negative) mg/dL Urine Blood Negative (Negative) Urine Nitrite Negative (Negative) Ur Leukocyte Esterase Negative (Negative) Ethyl Alcohol 196 mg/dL Independent Interpretation I performed an independent interpretation of an: EKG (Normal sinus rhythm at 79 beats per minute, first-degree AV block, otherwise unremarkable intervals, no ST-T changes.) Medications Administered Generic Name Dose Route Start Last Admin Trade Name Freq PRN Reason Stop Dose Admin Sodium Chloride 1,000 mls @ 999 mls/hr 11/20/24 07:24 11/20/24 07:45 Ns IV 11/20/24 08:24 999 mls/hr .Q1H1M ONE Administration Discontinued Medications Generic Name Dose Route Start Last Admin Trade Name Freq PRN Reason Stop Dose Admin Diazepam 5 mg 11/20/24 07:24 11/20/24 07:45 Diazepam 10 Mg/2 Ml Cartridge IVPUSH 11/20/24 07:25 5 mg STAT STA Administration Discharge Plan Discharge Clinical Impression: Alcohol withdrawal syndrome Patient Disposition: Admitted As Inpatient Print Language: Luxembourger
[2024-11-20 07:38] LABS: MANUAL DIFF FLAG NO
[2024-11-20] MEDS: diazePAM 10 MG/2 ML CARTRIDGE 5 MG IVPUSH ×2 (07:45→12:21)
[2024-11-20 07:47] LABS: Hematocrit 39.8 % (42.0-52.0); Hemoglobin 13.8 g/dl (14.0-18.0); Imm Gran Abs Auto 0.05 X10*3/uL (0.00-0.03); Imm Gran Pct Auto 0.5 % (0.0-0.4); Lymphocytes Absolute Auto 3.3 X10*3/uL (1.2-4.9); Mean Corpuscular HGB Conc 34.7 g/dl (31.0-36.0); Mean Corpuscular Hemoglobin 28.7 pg (27.0-33.0); Mean Corpuscular Volume 82.7 fL (80.0-98.0); NRBC Abs Auto 0.000 X10*3/uL (0.0-0.012); NRBC Pct Auto 0.0 /100WBC (0.0-0.2); Platelet Count 273 X10*3/uL (160-400); Red Blood Count 4.81 X10*6/uL (4.60-5.80); White Blood Count 11.0 X10*3/uL (4.8-10.8)
[2024-11-20 07:56] LABS: Appearance Urine Clear; Glucose Urine UA Negative (Negative); PH 5.5 (5.0-9.0); Specific Gravity - Urine <= 1.005 (1.005-1.025)
[2024-11-20 07:59] LABS: Alanine Aminotransferase 74 U/L (0-40); Albumin Level 4.1 g/dL (3.5-5.0); Alkaline Phosphatase 101 U/L (39-117); Anion Gap 18 (12-20); Aspartate Amino Transferase 48 U/L (5-37); Blood Urea Nitrogen 8 mg/dL (9-16); Calcium 9.2 mg/dL (8.4-10.2); Carbon Dioxide 19 mmol/L (22-29); Chloride 107 mmol/L (96-108); Creatinine Clr Calc Pharmacy 124.9; Estimated Glomerular Filt Rate > 60; Lipase 44 U/L (8-78); Magnesium 2.2 mg/dL (1.6-2.6); Potassium 3.7 mmol/L (3.3-5.1); Sodium 140 mmol/L (135-145); Total Protein 6.7 g/dL (6.5-8.0)
[2024-11-20 08:06] LABS: Troponin-I High Sensitivity 8.8 ng/L (<3.5-35.0)
[2024-11-20] MEDS: PHENobarbitaL sodium 130 MG/ML IM ONCE 306 MG IM (08:51)
[2024-11-20 08:54] VITALS: BP 141/83; PULSE 86; RESP 14; O2SAT 98
--- NOTE | 2024-11-20 09:30 | PC.NURSE ---
upon arrival, patient reports alcohol withdrawal symptoms - hx of withdrawal no seizures. 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 18IV right forearm, labs established. medicated per the MAR - reports improvement s/p valium administration. phenobarb protocol initiated. plan for admission. patient resting comfortably at this time. call morris within reach
[2024-11-20] MEDS: PHENobarbitaL sodium 130 MG/ML VIAL IM Q3Hx2 230 MG IM ×2 (11:17→13:16)
[2024-11-20 11:20] VITALS: BP 157/80; PULSE 70; RESP 16; TEMP 36.9; O2SAT 97
--- NOTE | 2024-11-20 12:06 | PM.IMHP ---
History of Present Illness Date of Service: 11/20/24 Chief Complaint: Hand numbness, ETOH 53-year-old male history of alcohol abuse stated that he has been drinking for the past few weeks, patient stated that he sees mices in the house but he his cat is not tracing them, patient also sees ants crawling on his leg, patient is unsure if this can be hallucination. He reports that he drinks 5 beers a day but likely is more, reported his last drink was 3 hours prior to admission. He denied any fever, chills, nausea, vomiting, diarrhea, recent illness, sick contacts. Patient lives alone. He also had some complaints of bilateral hand numbness which he reported started a few weeks ago when he picked up? patient?. He does have a history of alcohol abuse in the past but has been drinking more recently due to being laid off. Alcohol level 196. Mild transaminitis likely secondary to alcohol. Plan will be to admit patient for further management and treatment of acute alcohol withdrawal. Review of Systems Review of Systems: Denies any recent fever chills or decrease in appetite respiratory denies any shortness of breath or cough cardiovascular denied chest pain gastrointestinal denies any dysphagia abdominal pain nausea vomiting or diarrhea genitourinary denies any dysuria frequency or hematuria musculoskeletal denies any joint pain or swelling neuropsych he reported hand weakness, numbness bilaterally all other systems reviewed are negative [facility] Medical History History of COVID-19 History of ADHD Depression HTN (hypertension) Surgical History H/O colonoscopy Hx of colectomy Hx of left inguinal hernia repair History of repair of ACL Hx of arthroscopy of knee Social History Patient Tobacco Use Status: Current everyday Tobacco user Tobacco use type: Cigarette Cigarette Packs Per Day: 0.5 Cigarettes Per Day: 10.0 Smoked in Last 30 Days: Yes Advance Directives: No Advance Directives Information Provided: No Meds Allergies Allergy/AdvReac Type Severity Reaction Status Date / Time amoxicillin (Augmentin) AdvReac Severe Nausea and Verified 11/20/24 07:10 Vomiting clavulanic acid (Augmentin) AdvReac Severe Nausea and Verified 11/20/24 07:10 Vomiting NSAIDS Allergy Intermediate renal Uncoded 05/26/24 11:08 insuff Active Medications: Current Medications Pharmacy Consult (Consult Rx Etoh Phenob Im/Po) 1 each MISCELLANE ONCE PRN; Protocol PRN Reason: Consult order Phenobarbital (Phenobarbital 15 Mg Tablet) 45 mg PO BID [facility] Stop: 11/22/24 09:01 Phenobarbital (Phenobarbital 15 Mg Tablet) 15 mg PO BID [facility] Stop: 11/24/24 09:01 Phenobarbital (Phenobarbital 15 Mg Tablet) 15 mg PO DAILY [facility] Stop: 11/26/24 09:01 Phenobarbital Sodium (Phenobarbital Sodium 130 Mg/Ml Vial Im Q3hx2) 230 mg IM Q3H [facility] Stop: 11/20/24 14:01 Last Admin: 11/20/24 11:17 Dose: 230 mg Home Medications ?Medication ?Instructions ?Recorded ?Confirmed ?Last Taken ?Type aspirin 81 mg tablet,delayed 81 mg PO DAILY 05/01/20 11/20/24 04/26/20 History release atenolol 100 mg tablet 1 tab PO DAILY 05/01/20 11/20/24 05/02/20 History bupropion HCl 300 mg 24 hr tablet, 300 mg PO DAILY 11/20/24 11/20/24 Unknown History extended release clonazepam 0.5 mg tablet 0.5 mg PO BID PRN Anxiety 11/20/24 11/20/24 Unknown History dextroamphetamine-amphetamine 7.5 7.5 mg PO BID@0800,1400 11/20/24 11/20/24 Unknown History mg tablet (Adderall) multivitamin 1 tab PO DAILY 11/20/24 11/20/24 Unknown History Physical Exam Vital Signs and Narrative: Vital Signs: Last Vital Signs Temp 98.4 F 11/20/24 11:20 Pulse 70 11/20/24 11:20 Resp 16 11/20/24 11:20 BP 157/80 H 11/20/24 11:20 Pulse Ox 97 11/20/24 11:20 O2 Del Method Room Air 11/20/24 11:20 BMI result Body Mass Index 32.2 Appearing in no acute distress head is normocephalic atraumatic eyes pupils are PERRLA sclera is anicteric mouth throat mucous membranes are intact and moist neck is supple no lymphadenopathy, no JVD noted lung sounds are clear to auscultation heart regular rate rhythm, clear S1, S2 positive bowel sounds, abdomen is soft, nontender neuro patient is alert x3, no focal deficits Results Labs 11/20/24 07:33 11/20/24 07:33 Labs: Laboratory Results - last 24 hr 11/20/24 11/20/24 07:33 07:50 MCV 82.7 MCH 28.7 MCHC 34.7 RDW 16.5 H Plt Count 273 MPV 9.8 Immature Gran % (Auto) 0.5 H Neut % (Auto) 57.2 Lymph % (Auto) 29.7 [place] % (Auto) 9.3 Eos % (Auto) 2.8 Baso % (Auto) 0.5 Lymph # (Auto) 3.3 [place] # (Auto) 1.0 Eos # (Auto) 0.3 Baso # (Auto) 0.1 Abs Immat Gran (auto) 0.05 H Absolute Neuts (auto) 6.3 Absolute Nucleated RBC 0.000 Nucleated RBC % (auto) 0.0 Anion Gap 18 Estim Creat Clear Calc 124.9 Estimated GFR > 60 Random Glucose 89 Calcium 9.2 Magnesium 2.2 Total Bilirubin 0.5 Direct Bilirubin 0.2 AST 48 H ALT 74 H Alkaline Phosphatase 101 Total Protein 6.7 Albumin 4.1 Lipase 44 Urine Color Yellow Urine Appearance Clear Urine pH 5.5 Ur Specific [place] <= 1.005 Urine Protein Negative Urine Glucose (UA) Negative Urine Ketones Negative Urine Blood Negative Urine Nitrite Negative Ur Leukocyte Esterase Negative Ethyl Alcohol 196 Assessment and Plan (1) Alcohol withdrawal syndrome: Status: Acute Plan 53-year-old man admitted with alcohol withdrawal syndrome Alcohol withdrawal syndrome alcohol level 196 Started on phenobarbital Has required 3 extra IV doses as well as Valium Addiction consultation IV fluids Regular diet Bilateral hand numbness Patient reported a few weeks ago he picked up the patient and feels as though he may have hurt Ancef at that time Cervical spine CT negative for any acute abnormality Supportive care Mental health Continue home medications Hypertension Continue atenolol DVT prophylaxis with heparin Full code Quality Stroke Does the patient have a stroke diagnosis?: No VTE Prior VTE?: No VTE Risk Level:: Medical - moderate - high VTE Device Contraindication: Treatment Not Indicated VTE Drug Contraindication: N/A - Med Ordered
--- NOTE | 2024-11-20 12:13 | PC.NURSE ---
patient called this RN to room for jerking motions, tachy on the monitor. feels as he is in withdrawal from tianeptine. able to stand and use urinal w/out incident. provider made aware, order for IV Valium to be administered.
--- NOTE | 2024-11-20 12:48 | PHA.MEDREC ---
Pharmacy Consult ? Medication Reconciliation Pharmacy has completed the medication reconciliation.Med rec complete, patient was very drowsy but did confirm the medications I asked him about. He did state that he had run out of atenolol but is still supposed to be on this.
--- NOTE | 2024-11-20 12:59 | PC.NURSE ---
While covering for primary RN, pt found wandering hallway, unsteady. Able to guide pt back to exam room, pt restless, requesting medication for etoh withdrawals, recently medicated approx 1/2 hour ago. [place] text to primary doctor for update.
[2024-11-20 13:01] VITALS: BP 169/97; PULSE 22; RESP 14; O2SAT 97
--- NOTE | 2024-11-20 15:33 | PM.DS ---
DS: Providers Provider Date of Service: 11/20/24 Date of admission: 11/20/24 08:12 Date of discharge: 11/20/24 Primary care physician: None Physician DS: Summary Hospital Course Hospital Course: 53-year-old male history of alcohol abuse stated that he has been drinking for the past few weeks, patient stated that he sees mices in the house but he his cat is not tracing them, patient also sees ants crawling on his leg, patient is unsure if this can be hallucination. Patient had history of alcohol withdrawal in the past, last drink was 3 hours ago. No CP, no SOB, no fever, no chills.. The patient has decided to leave against medical advice. He has normal mental status and adequate capacity to make medical decisions. The patient refuses hospital admission and wants to be discharged. The risks have been explained to the patient including worsening illness, chronic pain, permanent disability and even . The benefits of admission have also been explained including the availability of nurses, medical providers, close monitoring, IV medications, diagnostic imaging, treatments, etc.. The patient was able to understand and state the risks and benefits of hospital admission. The patient was given opportunities to ask questions prior to leaving. Plan was to treat patient for alcohol withdrawal with phenobarbital and Valium however patient decided to leave against medical advice. He also complained of bilateral hand numbness, cervical spine CT negative for any acute abnormality but did show some chronic degenerative changes. Time Attestation Discharge Coordination Time (in mins): 30 Quality: Safe Use of Opioids Does Pt have an Active Cancer Diagnosis on the Problem List?: No Quality: Stroke Does the patient have a stroke diagnosis?: No Physical Exam Exam: Exam: Declined Vital Signs: Vital Signs: Last Vital Signs Temp 98.4 F 11/20/24 11:20 Pulse 22 L 11/20/24 13:01 Resp 14 11/20/24 13:01 BP 169/97 H 11/20/24 13:01 Pulse Ox 97 11/20/24 13:01 O2 Del Method Room Air 11/20/24 13:01 BMI result Body Mass Index 32.2 DS: Data Data Completed and Pending Labs on day of discharge: Laboratory Results - last 24 hr 11/20/24 11/20/24 07:33 07:50 WBC 11.0 H RBC 4.81 Hgb 13.8 L Hct 39.8 L MCV 82.7 MCH 28.7 MCHC 34.7 RDW 16.5 H Plt Count 273 MPV 9.8 Immature Gran % (Auto) 0.5 H Neut % (Auto) 57.2 Lymph % (Auto) 29.7 [place] % (Auto) 9.3 Eos % (Auto) 2.8 Baso % (Auto) 0.5 Lymph # (Auto) 3.3 [place] # (Auto) 1.0 Eos # (Auto) 0.3 Baso # (Auto) 0.1 Abs Immat Gran (auto) 0.05 H Absolute Neuts (auto) 6.3 Absolute Nucleated RBC 0.000 Nucleated RBC % (auto) 0.0 Sodium 140 Potassium 3.7 Chloride 107 Carbon Dioxide 19 L Anion Gap 18 BUN 8 L Creatinine 0.72 Estim Creat Clear Calc 124.9 Estimated GFR > 60 Random Glucose 89 Calcium 9.2 Magnesium 2.2 Total Bilirubin 0.5 Direct Bilirubin 0.2 AST 48 H ALT 74 H Alkaline Phosphatase 101 Troponin I High Sens 8.8 Total Protein 6.7 Albumin 4.1 Lipase 44 Urine Color Yellow Urine Appearance Clear Urine pH 5.5 Ur Specific [place] <= 1.005 Urine Protein Negative Urine Glucose (UA) Negative Urine Ketones Negative Urine Blood Negative Urine Nitrite Negative Ur Leukocyte Esterase Negative Ethyl Alcohol 196 Discharge Plan Discharge Anticipated Discharge Date/Time: 11/20/24 15:31 Patient Disposition: Left Against Medical Advice Discharge Diagnosis: Alcohol withdrawal Hand numbness Discharge Medications: No Action atenolol 100 mg tablet 1 tab PO DAILY aspirin 81 mg Tablet,Delayed Release (Dr/Ec) 81 mg PO DAILY clonazepam 0.5 mg Tablet 0.5 mg PO BID PRN (Reason: Anxiety) multivitamin Tablet 1 tab PO DAILY dextroamphetamine-amphetamine [Adderall] 7.5 mg Tablet 7.5 mg PO BID@0800,1400 Rx Instructions: administer doses at least 4-6 hours apart bupropion HCl 300 mg Tablet Extended Release 24 Hr 300 mg PO DAILY Discharge Orders: Discharge Order (Routine); Ordered 11/20/24 Ordered By: Marianna Sprague Diet: Advance to usual diet Activity on Discharge: As tolerated Print Language: Algerian Care Plan Goals: The patient has decided to leave against medical advice. He has normal mental status and adequate capacity to make medical decisions. The patient refuses hospital admission and wants to be discharged. The risks have been explained to the patient including worsening illness, chronic pain, permanent disability and even . The benefits of admission have also been explained including the availability of nurses, medical providers, close monitoring, IV medications, diagnostic imaging, treatments, etc.. The patient was able to understand and state the risks and benefits of hospital admission. The patient was given opportunities to ask questions prior to leaving. You should avoid alcohol, if your symptoms of withdrawal become worse please return to the emergency department Health Concerns: Alcohol withdrawal Hand numbness Plan of Treatment: Follow up with primary care provider as needed Take all medications as prescribed Assessment: See discharge summary
--- NOTE | 2024-11-20 15:51 | PC.NURSE ---
patient requested to leave AMA, provider at bedside to explain risks of leaving AMA. ambulating with steady gait to waiting room.
== END 2024-11-20 15:53 | disposition left against medical advice (07) | DRG 770 ==
LOC: HO.ED 08:10 → HO.EDOVER 08:28
PROVIDERS: Admitting Provider Internal Medicine; Emergency Provider Emergency Medicine; Visit Provider Nurse Practitioner Acute Care
DX: F10.139 Alcohol abuse with withdrawal, unspecified (principal); F17.210 Nicotine dependence, cigarettes, uncomplicated; Y90.6 Blood alcohol level of 120-199 mg/100 ml; R20.0 Anesthesia of skin; Z71.6 Tobacco abuse counseling; Z79.82 Long term (current) use of aspirin; Z79.899 Other long term (current) drug therapy
CPT/HCPCS: 36415; 72125; 80048; 80076; 80307; 81003; 83690; 83735; 84484; 85025; 93005; 99285; J2560; J3360

== ENCOUNTER → 2024-11-20 07:15 | Outpatient (BNV) | payer OTHER, SELFPAY | PROVIDERS: Admitting Provider Internal Medicine; Emergency Provider Emergency Medicine; Visit Provider Internal Medicine Cardiovascular Disease | DX: I51.7 Cardiomegaly (principal) | CPT/HCPCS: 93010 ==

== ENCOUNTER 2024-11-20 08:12 | Outpatient (BNV) | payer OTHER, SELFPAY | END 2024-11-20 09:47 | PROVIDERS: Admitting Provider Internal Medicine; Emergency Provider Emergency Medicine; Visit Provider Radiology Vascular & Interventional Radiology | DX: M48.02 Spinal stenosis, cervical region (principal) | CPT/HCPCS: 72125 ==

== ENCOUNTER → 2024-11-20 08:12 | Outpatient (BNV) | payer OTHER, SELFPAY | PROVIDERS: Admitting Provider Internal Medicine; Emergency Provider Emergency Medicine; Visit Provider Nurse Practitioner Acute Care | DX: F10.939 Alcohol use, unspecified with withdrawal, unspecified (principal); Z53.29 Procedure and treatment not carried out because of patient's decision for other reasons | CPT/HCPCS: 99223; 99499 ==

== ENCOUNTER 2024-12-05 13:52 | Inpatient (IN) | payer OTHER, SELFPAY ==
--- OUTSIDE RECORDS SUMMARY | 2023-08-19 09:00 | XMS_ITS ---
Author Organization [facility] Address [address] [place] [address] Care Team Providers Care Lead Embedded Software Engineer Name Role Phone Jus Overton Primary Care Provider Unavaila Jus Garcia Jr Unavailable [phone] REASON FOR VISIT screening Encounters Encounter Location Date Provider Diagnosis [facility] [place] [address] [place] [phone] 08/19/2023 Jus Overton Jr Encounter for screening colonoscopy Z12.11 ; Colon polyps K63.5 and Adenoma of colon D12.6 Assessments Encounter Date Diagnosis (ICD Code) Assessment Notes Treatment Notes Treatment Clinical Notes Section Notes 08/19/2023 Encounter for screening colonoscopy (ICD-10 - Z12.11) 08/19/2023 Colon polyps (ICD-10 - K63.5) 08/19/2023 Adenoma of colon (ICD-10 - D12.6) Plan Of Treatment No Information Progress Notes * MIKE JUÁREZDOB: [birth year] (54 yo M)Acc No.[id number]:08/19/2023 COLON WITH MAC Patient: MIKE NAJERA Provider: Fredrick Overton MD :1970 A ge:52 Y S ex:Male Date:08/19/2023 Address:[address] [place] [address], [place], [place] Pcp:Jus Overton Subjective: * Chief Complaints: * [...] 0 08/19/2023 Generated for Mars ashford/Marlene/Anaitting on: 0 12/05/2024 02:30 PM EDT
[2024-12-05 14:00] VITALS: BP 143/93; BP 164/100; PULSE 90; PULSE 93; RESP 18; TEMP 36.6; O2SAT 100; O2SAT 99; BMI 29.0
--- OUTSIDE RECORDS SUMMARY | 2024-12-05 14:30 | XMS_ITS | Patient Health Record ---
Author Organization [facility] Address [address] [place] [address] Care Team Providers Care Qa Developer Name Role Phone Jus Overton Primary Care Provider Unavaila Jus Garcia Jr Unavailable Allergies Allergen (clinical drug ingredient) Drug/Non Drug Allergy documented on EMR Reaction Allergy Type Onset Date Status amoxicillin / clavulanate Augmentin vomitting Drug Allergy Active Reason For Referral No Information Medications Medication SIG (Take, Route, Frequency, Duration) Notes [...] tablet Or ally Once a day Active Immunizations Vaccine Route Administration Date Status Comme nts Influenza Unknown 01/04/2019 Administered Influenza Unknown 01/05/2020 Administered Influenza Unknown 01/27/2023 Administered Social History Tobacco Use: Social History Observation Description Date Details (start date - stop date) Current Smoker NA - NA Tobacco Use/Smoking Question Answer Notes Patient is a current smoker How often do you smoke cigarettes? every day How many cigarettes a day do you smoke? 6-10 How soon after you wake up do you smoke your fir st cigarette? 6-30 minutes Are you interested in quitting? Ready to quit Problems Problem Type SNOMED Code ICD Code Onset Dates Problem Status W/U Status Risk Notes Problem 674423360 Colon cancer screening (Z12.11) Active confirmed Problem 810107355 Personal history of colonic polyps (Z86.010) Active confirmed Problem 669938679 Irritable bowel syndrome with diarrhea (K58.0) Active confirmed Problem 8050124 Juvenile polyposis syndrome (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 Encounters Encounter Location Date Provider Diagnosis [facility] [address] [place] [address] 03/01/2024 Jus Overton Jr Irritable bowel syndrome with diarrhea K58.0 Assessments Encounter Date Diagnosis (ICD Code) Assessment Notes Treatment Notes Treatment Clinical Notes Section Notes 03/01/2024 Irritable bowel syndrome with diarrhea (ICD-10 - K58.0) Plan Of Treatment Future Test Test Name Order Date COLONOSCOPY 01/23/2017 COLONOSCOPY 04/19/2020 COLONOSCOPY 04/20/2020 COLONOSCOPY 07/08/2023 Insurance Providers Payer Name Payer Address Payer Phone Subscriber Number Group Number Insured Name Patient Relationship to Insured Coverage Start Date Coverage End Date [facility] [address] [place] [phone] [id number] MIKE JUÁREZ Self - patient is the insured 3 Medical (General) History Medical History History ICD Code colonoscopy 04/26, tubular ad enoma, three-year followup, history of juvenile polyposis kidney disease alcohol abuse bipolar disorder hypertension Covid 19 infection 03/25 Surgical History Surgery Date(Month/Year) colectomy right knee arthroscopy ACL knee surgery
--- OUTSIDE RECORDS SUMMARY | 2024-12-05 14:30 | XMS_ITS | Clinical Summary ---
Author Organization [facility] ity Address [address] [place] [address] Care Team Providers Care Executive Vice President Of Sales Name Role Phone Unavailable Primary Care Provider [...] 2020 Zoster Vaccines (1 of 2) 2020 Depression Screening 04/06/2024 COVID-19 Vaccine (1 - 2023-2 5 season) 2024 Influenza Vaccine (#1) 2024 HIB Vaccines Aged Out No longer eligi [...] age to complete this topic Meningococcal B Vaccine Aged Out No l onger eligible based on patient's age to complete this topic RSV Immunization Patients Un magaly 20 months Aged Out No longer eligible b ased on patient's age to complete this topic Varicella Vaccines Aged Out No longer eligible based on patient's age to complete this topic
[2024-12-05 15:07] LABS: MANUAL DIFF FLAG NO
[2024-12-05 15:10] LABS: Hematocrit 44.7 % (42.0-52.0); Hemoglobin 15.6 g/dl (14.0-18.0); Imm Gran Abs Auto 0.05 X10*3/uL (0.00-0.03); Imm Gran Pct Auto 0.5 % (0.0-0.4); Lymphocytes Absolute Auto 2.2 X10*3/uL (1.2-4.9); Mean Corpuscular HGB Conc 34.9 g/dl (31.0-36.0); Mean Corpuscular Hemoglobin 28.8 pg (27.0-33.0); Mean Corpuscular Volume 82.5 fL (80.0-98.0); NRBC Abs Auto 0.000 X10*3/uL (0.0-0.012); NRBC Pct Auto 0.0 /100WBC (0.0-0.2); Platelet Count 324 X10*3/uL (160-400); Red Blood Count 5.42 X10*6/uL (4.60-5.80); White Blood Count 11.0 X10*3/uL (4.8-10.8)
[2024-12-05 15:23] LABS: Cannabinoid Screen Urine Not Detected (Not Detect)
[2024-12-05 15:28] LABS: Anion Gap 21 (12-20); Blood Urea Nitrogen 8 mg/dL (9-16); Calcium 9.3 mg/dL (8.4-10.2); Carbon Dioxide 17 mmol/L (22-29); Chloride 108 mmol/L (96-108); Creatinine Clr Calc Pharmacy 108.6; Estimated Glomerular Filt Rate > 60; Potassium 4.1 mmol/L (3.3-5.1); Sodium 142 mmol/L (135-145)
--- NOTE | 2024-12-05 15:40 | ED.ALCOHOL ---
HPI - Alcohol General Chief Complaint: ETOH/Substance Use Stated Complaint: ETOH Time Seen by Provider: 12/05/24 15:21 Source: patient Mode of arrival: ambulatory Limitations: no limitations History of Present Illness ED Provider: DR. Watkins HPI narrative: a 54-year-old male with history of alcohol abuse stated that he has been drinking for the past 3 days straight he drank up to 30 beers yesterday, not eating otherwise or drinking fluids. Patient with known history of alcohol withdrawal, history of seizure withdrawal, complaining of tremors, being anxious, nauseous, vomited x1, no hallucination. Related Data Home Medications ?Medication ?Instructions ?Recorded ?Confirmed aspirin 81 mg tablet,delayed 81 mg PO DAILY 05/01/20 11/20/24 release atenolol 100 mg tablet 1 tab PO DAILY 05/01/20 11/20/24 bupropion HCl 300 mg 24 hr tablet, 300 mg PO DAILY 11/20/24 11/20/24 extended release clonazepam 0.5 mg tablet 0.5 mg PO BID PRN Anxiety 11/20/24 11/20/24 dextroamphetamine-amphetamine 7.5 7.5 mg PO BID@0800,1400 11/20/24 11/20/24 mg tablet (Adderall) multivitamin 1 tab PO DAILY 11/20/24 11/20/24 Allergies Allergy/AdvReac Type Severity Reaction Status Date / Time amoxicillin (Augmentin) AdvReac Severe Nausea and Verified 12/05/24 14:11 Vomiting clavulanic acid (Augmentin) AdvReac Severe Nausea and Verified 12/05/24 14:11 Vomiting NSAIDS Allergy Intermediate renal Uncoded 05/26/24 11:08 insuff Review of Systems Review of Systems: All other systems are reviewed and are negative Constitutional: Reports as per HPI and Reports no additional constitutional complaints Eyes: Reports as per HPI and Reports no additional eye complaints Reports system reviewed and no additional complaints, except as documented Cardiovascular: Reports as per HPI and Reports no additional cardiovascular complaints Respiratory: Reports as per HPI and Reports no additional respiratory complaints Gastrointestinal: Reports as per HPI and Reports no additional gastrointestinal complaints Genitourinary: Reports no additional female genitourinary complaints Musculoskeletal: Reports no additional musculoskeletal complaints Skin/Breast: Reports system reviewed and no additional complaints, except as docu Psychiatric: Reports no additional psychiatric complaints Endocrine: Reports no additional endocrine complaints Hematologic/Lymphatic: Reports no additional hematologic/lymphatic complaints Allergic/Immunologic: Reports no additional allergic/immunologic complaints Reports system reviewed and no additional complaints, except as documented and Reports Abnormal speech present [facility] Past Medical History Medical History History of COVID-19 History of ADHD Depression HTN (hypertension) Surgical History H/O colonoscopy Hx of colectomy Hx of left inguinal hernia repair History of repair of ACL Hx of arthroscopy of knee Social History Social History Alcohol intake: current Alcohol intake frequency: 3 or more drinks per day Alcohol type: beer Patient Tobacco Use Status: Current everyday Tobacco user Tobacco use type: Cigarette Cigarette Packs Per Day: 0.5 Cigarettes Per Day: 10.0 Smoked in Last 30 Days: Yes Use of substances other than those prescribed or required for medical reasons: No Advance Directives: No Advance Directives Information Provided: No Do you have a plan to hurt others: No Plan Physical Exam ED Vital Signs: Vital Signs - 24 hr 12/05/24 14:00 Temperature 97.8 F Pulse Rate 93 Respiratory Rate 18 Blood Pressure 143/93 H Pulse Oximetry 100 Oxygen Delivery Method Room Air BMI result Body Mass Index 29.0 Vital signs have been reviewed and appear to be correct. Blood pressure elevated. Heart rate normal. Respiratory rate normal. Temperature normal. Oxygen saturation normal. Appearance: Anxious, Alert. Oriented X3. No acute distress. Head: Normal external exam. Normocephalic. Atraumatic. No Steel signs noted. No raccoon eyes noted Eyes: PERRLA. EOMI. Conjunctiva and sclera normal. Eyelids normal. ENT: TM's Normal. Pharynx normal. Uvula midline. Moist mucous membranes. No trismus noted. No drooling noted. No muffled voice noted. Neck: Normal inspection. Neck supple. FROM. No adenopathy. Thyroid Normal. No meningeal signs. No neck mass noted. CVS: Normal heart rate and rhythm. Heart sound normal. No murmurs noted. Pulses normal throughout. Respiratory: No respiratory distress. Painless inspiration. Breath sounds normal. No wheezes/rales/rhonchi noted. Chest nontender. No accessory muscle usage noted or decreased air movement noted. Abdomen: Soft and nontender. Bowel sounds normal in all 4 quadrants. No distention noted. No organomegaly noted. No visible injury noted. Back: No CVA tenderness. Full range of motion noted. Skin: Skin warm and dry. Normal skin color. Normal skin turgor. No rashes/lesions/lacerations noted. Extremities: No lower extremity edema. Extremities exhibit normal range of motion. Extremities nontender. Neuro: Oriented X 3, involuntary tremors. and tongue fasciculation. Cranial nerve exam: II-XII are grossly intact No motor deficit. No sensory deficit. Reflexes normal. Course Reevaluation(s) Reevaluation #1: 54-year-old Presented with alcohol binge for the past few days, last drink was 3 hours ago and start feel withdrawal symptoms patient well known with withdrawal hallucination and seizure, CIWA score is 14 will start on Valium and phenobarb protocol. Time: 15:47 Medical Decision Making Differential Diagnosis Differential Diagnoses: The differential diagnosis associated with the presentation includes ( alcohol withdrawal, dehydration, electrolyte derangement.) Admission/Observation Consideration of admission/observation: Escalation of care including admission/observation considered Consult Healthcare Provider Management of the patient was discussed with: Hospitalist ( Marianna Sprague) Lab Data MDM Lab Attestation statement: I reviewed the patient's lab results. 12/05/24 15:03 12/05/24 15:03 Labs: Lab Results 12/05/24 12/05/24 Range/Units 14:57 15:03 WBC 11.0 H (4.8-10.8) X10*3/uL RBC 5.42 (4.60-5.80) X10*6/uL Hgb 15.6 (14.0-18.0) g/dl Hct 44.7 (42.0-52.0) % MCV 82.5 (80.0-98.0) fL MCH 28.8 (27.0-33.0) pg MCHC 34.9 (31.0-36.0) g/dl RDW 16.5 H (11.0-16.0) % Plt Count 324 (160-400) X10*3/uL MPV 9.6 (9.4-12.4) fL Immature Gran % (Auto) 0.5 H (0.0-0.4) % Neut % (Auto) 72.4 (45-73) % Lymph % (Auto) 19.8 L (20-40) % [place] % (Auto) 6.2 (2-11) % Eos % (Auto) 0.6 (0-4) % Baso % (Auto) 0.5 (0-2) % Lymph # (Auto) 2.2 (1.2-4.9) X10*3/uL [place] # (Auto) 0.7 (0.1-1.2) X10*3/uL Eos # (Auto) 0.1 (0.0-0.4) X10*3/uL Baso # (Auto) 0.1 (0.0-0.2) X10*3/uL Abs Immat Gran (auto) 0.05 H (0.00-0.03) X10*3/uL Absolute Neuts (auto) 7.9 (2.0-8.3) x10*3/uL Absolute Nucleated RBC 0.000 (0.0-0.012) X10*3/uL Nucleated RBC % (auto) 0.0 (0.0-0.2) /100WBC Sodium 142 (135-145) mmol/L Potassium 4.1 (3.3-5.1) mmol/L Chloride 108 (96-108) mmol/L Carbon Dioxide 17 L (22-29) mmol/L Anion Gap 21 H (12-20) BUN 8 L (9-16) mg/dL Creatinine 0.78 (0.5-1.4) mg/dL Estim Creat Clear Calc 108.6 Estimated GFR > 60 Random Glucose 79 (60-115) mg/dL Calcium 9.3 (8.4-10.2) mg/dL Urine Opiates Screen POSITIVE H (Not Detect) Ur Buprenorphine Scrn Not Detected (Not Detect) ng/mL Ur Oxycodone Screen Not Detected (Not Detect) ng/mL Urine Methadone Screen Not Detected (Not Detect) ng/mL Urine Fentanyl Screen Not Detected (Not Detect) Ur Barbiturates Screen POSITIVE H (Not Detect) Ur Phencyclidine Scrn Not Detected (Not Detect) Ur Amphetamines Screen Not Detected (Not Detect) U Benzodiazepines Scrn Not Detected (Not Detect) Urine Cocaine Screen Not Detected (Not Detect) U Marijuana (THC) Screen Not Detected (Not Detect) Ethyl Alcohol 88 mg/dL Discharge Plan Discharge Clinical Impression: Alcohol withdrawal syndrome Patient Disposition: Admitted As Inpatient Print Language: Bangladeshi
[2024-12-05 15:49] VITALS: BP 145/92; PULSE 94; RESP 20; O2SAT 100
[2024-12-05] MEDS: diazePAM 10 MG/2 ML CARTRIDGE 5 MG IVPUSH (15:54)
[2024-12-05] MEDS: PHENobarbitaL sodium 130 MG/ML IM ONCE 204 MG IM (15:54)
--- NOTE | 2024-12-05 16:02 | PC.NURSE ---
patient a&ox3, rr equal/non labored, vss, labs drawn, urine obtained, pt medicated per order, hospitalist was at bedside for admission- ok'd patient to eat- pt given po per hospitalist ok, seizure precautions placed, call morris within reach, plan of care ongoing
--- NOTE | 2024-12-05 16:04 | PM.IMHP ---
History of Present Illness Date of Service: 12/05/24 Chief Complaint: Withdrawal 54-year-old man with a history of alcohol abuse presents today with reports of alcohol intoxication, patient reported that he has been drinking straight for the past 3 days and he has drank up to 30 beers yesterday. He has not been eating or drinking well. He does live alone with his cat. He denied any chest pain, nausea, vomiting, diarrhea, hallucinations. He was having some complaints of anxiousness, tremulousness, nausea, did have 1 episode of vomiting. The ER, alcohol level of 88 normal mildly elevated liver enzymes, mildly elevated blood pressure. Patient was started on phenobarbital protocol and given a dose of Valium in the ER. He will be admitted for further management and treatment of acute alcohol withdrawal syndrome. Review of Systems Review of Systems: Denies any recent fever chills or decrease in appetite respiratory denies any shortness of breath or cough cardiovascular denied chest pain gastrointestinal denies any dysphagia abdominal pain nausea vomiting or diarrhea genitourinary denies any dysuria frequency or hematuria musculoskeletal denies any joint pain or swelling neuropsych denies any weakness or seizures all other systems reviewed are negative [facility] Medical History History of COVID-19 History of ADHD Depression HTN (hypertension) Surgical History H/O colonoscopy Hx of colectomy Hx of left inguinal hernia repair History of repair of ACL Hx of arthroscopy of knee Social History Alcohol intake: current Alcohol intake frequency: 3 or more drinks per day Alcohol type: beer Patient Tobacco Use Status: Current everyday Tobacco user Tobacco use type: Cigarette Cigarette Packs Per Day: 0.5 Cigarettes Per Day: 10.0 Smoked in Last 30 Days: Yes Use of substances other than those prescribed or required for medical reasons: No Advance Directives: No Advance Directives Information Provided: No Do you have a plan to hurt others: No Plan Meds Allergies Allergy/AdvReac Type Severity Reaction Status Date / Time amoxicillin (Augmentin) AdvReac Severe Nausea and Verified 12/05/24 14:11 Vomiting clavulanic acid (Augmentin) AdvReac Severe Nausea and Verified 12/05/24 14:11 Vomiting NSAIDS Allergy Intermediate renal Uncoded 05/26/24 11:08 insuff Active Medications: Current Medications Acetaminophen (Acetaminophen 325 Mg Tablet) 650 mg PO Q6H PRN PRN Reason: Pain, Mild 1-3,fever,headache Calcium Carbonate (Calcium Carbonate 750 Mg Tab.Chew) 750 mg PO Q4H PRN PRN Reason: Heartburn Heparin Sodium (Porcine) (Heparin Sodium,Porcine 5,000 Unit/Ml Vial) 5,000 unit SUBCUT Q12H [facility] Lactated Ringer's (Lr) 1,000 mls @ 125 mls/hr IVCONT .Q8H [facility] Thiamine HCl 100 mg/ Sodium (Chloride) 101 mls @ 202 mls/hr IV DAILY [facility] Stop: 12/09/24 08:59 Magnesium Hydroxide (Milk Of Magnesia 30 Ml Oral.Susp) 30 ml PO DAILY PRN PRN Reason: Constipation Melatonin (Melatonin 3 Mg Tablet) 6 mg PO BEDTIME PRN PRN Reason: Insomnia Ondansetron HCl (Ondansetron Hcl 4 Mg/2 Ml Vial) 4 mg IVPUSH Q8H PRN PRN Reason: Nausea and Vomiting Pharmacy Consult (Consult Rx Etoh Phenob Im/Po) 1 each MISCELLANE ONCE PRN; Protocol PRN Reason: Consult order Phenobarbital (Phenobarbital 15 Mg Tablet) 45 mg PO BID [facility] Stop: 12/07/24 21:01 Phenobarbital (Phenobarbital 30 Mg Tablet) 30 mg PO BID [facility] Stop: 12/09/24 21:01 Phenobarbital (Phenobarbital 15 Mg Tablet) 15 mg PO DAILY [facility] Stop: 12/11/24 09:01 Phenobarbital Sodium (Phenobarbital Sodium 130 Mg/Ml Vial Im Q3hx2) 153 mg IM Q3H [facility] Stop: 12/05/24 22:01 Sodium Chloride (0.9 % Sodium Chloride Flush 3 Ml Syringe) 3 ml IVFLUSH QSHIFT [facility] Home Medications ?Medication ?Instructions ?Recorded ?Confirmed ?Last Taken ?Type aspirin 81 mg tablet,delayed 81 mg PO DAILY 05/01/20 11/20/24 04/26/20 History release atenolol 100 mg tablet 1 tab PO DAILY 05/01/20 11/20/24 05/02/20 History bupropion HCl 300 mg 24 hr tablet, 300 mg PO DAILY 11/20/24 11/20/24 Unknown History extended release clonazepam 0.5 mg tablet 0.5 mg PO BID PRN Anxiety 11/20/24 11/20/24 Unknown History dextroamphetamine-amphetamine 7.5 7.5 mg PO BID@0800,1400 11/20/24 11/20/24 Unknown History mg tablet (Adderall) multivitamin 1 tab PO DAILY 11/20/24 11/20/24 Unknown History Physical Exam Vital Signs and Narrative: Vital Signs: Last Vital Signs Temp 97.8 F 12/05/24 14:00 Pulse 94 12/05/24 15:49 Resp 20 12/05/24 15:49 BP 145/92 H 12/05/24 15:49 Pulse Ox 100 12/05/24 15:49 O2 Del Method Room Air 12/05/24 15:49 BMI result Body Mass Index 29.0 Appearing in no acute distress, weeping, seems in distres head is normocephalic atraumatic eyes pupils are PERRLA sclera is anicteric mouth throat mucous membranes are intact and moist neck is supple no lymphadenopathy, no JVD noted lung sounds are clear to auscultation heart regular rate rhythm, clear S1, S2 positive bowel sounds, abdomen is soft, nontender neuro patient is alert x3, no focal deficits Results Labs 12/05/24 15:03 12/05/24 15:03 Labs: Laboratory Results - last 24 hr 12/05/24 12/05/24 14:57 15:03 MCV 82.5 MCH 28.8 MCHC 34.9 RDW 16.5 H Plt Count 324 MPV 9.6 Immature Gran % (Auto) 0.5 H Neut % (Auto) 72.4 Lymph % (Auto) 19.8 L Josephine % (Auto) 6.2 Eos % (Auto) 0.6 Baso % (Auto) 0.5 Lymph # (Auto) 2.2 Josephine # (Auto) 0.7 Eos # (Auto) 0.1 Baso # (Auto) 0.1 Abs Immat Gran (auto) 0.05 H Absolute Neuts (auto) 7.9 Absolute Nucleated RBC 0.000 Nucleated RBC % (auto) 0.0 Anion Gap 21 H Estim Creat Clear Calc 108.6 Estimated GFR > 60 Random Glucose 79 Calcium 9.3 Urine Opiates Screen POSITIVE H Ur Buprenorphine Scrn Not Detected Ur Oxycodone Screen Not Detected Urine Methadone Screen Not Detected Urine Fentanyl Screen Not Detected Ur Barbiturates Screen POSITIVE H Ur Phencyclidine Scrn Not Detected Ur Amphetamines Screen Not Detected U Benzodiazepines Scrn Not Detected Urine Cocaine Screen Not Detected U Marijuana (THC) Screen Not Detected Ethyl Alcohol 88 Assessment and Plan (1) Alcohol use disorder: Status: Acute Plan 54-year-old man admitted with alcohol withdrawal syndrome Alcohol withdrawal syndrome alcohol level 88 Started on phenobarbital Addiction consultation IV fluids Iv thiamine, multivitamin, folic acid Regular diet Mild transaminitis Likely secondary to alcohol use Mental health Continue home medications Hypertension Continue atenolol DVT prophylaxis with heparin Full code Quality Stroke Does the patient have a stroke diagnosis?: No VTE Prior VTE?: No VTE Risk Level:: Medical - moderate - high VTE Device Contraindication: Treatment Not Indicated VTE Drug Contraindication: N/A - Med Ordered
[2024-12-05] MEDS: 0.9 % Sodium Chloride Flush 3 ML SYRINGE IVFLUSH (16:45)
[2024-12-05] MEDS: Lactated Ringers 1,000 ML 125 ML IVCONT (16:47)
--- NOTE | 2024-12-05 16:50 | PHA.MEDREC ---
Pharmacy Consult ? Medication Reconciliation Pharmacy has completed the medication reconciliation. Patient drowsy, named atenolol on his own despite outdated claim. Everything else he agreed yes or no based off claim Hx. Said he hasn't taken anything in about 4 days
[2024-12-05 16:51] VITALS: BP 131/72; PULSE 117; RESP 18; O2SAT 99
--- NOTE | 2024-12-05 16:52 | PC.NURSE ---
pt hr went from nsr to tachy on the monitor, hospitalist was notified, pt placed on monitor and storage bin tender- sinus teach on monitor. call morris within reach, ivf started per order, plan of care ongoing
[2024-12-05] MEDS: diazePAM 10 MG/2 ML CARTRIDGE IVPUSH ×2 (17:43→19:17)
--- NOTE | 2024-12-05 18:01 | PC.NURSE ---
patients ciwa was 9, provider notified as pt had anxiety and stated he couldnt sit still, pt also stated he had not taken any of his medications in 2 days. pt medicated per order, plan of care ongoing.
[2024-12-05 18:22] VITALS: BP 160/89; PULSE 106; RESP 22; O2SAT 98
[2024-12-05] MEDS: PHENobarbitaL sodium 130 MG/ML VIAL IM Q3Hx2 153 MG IM ×2 (18:37→21:53)
--- NOTE | 2024-12-05 18:57 | PC.NURSE ---
patient ripped off cardiac exercise physiologist, was at end of bed attempting to leave, pulling at iv site, pt states Im leaving ama, these meds dont work for me this nurse called and aline texted Laure Sprague who stated pt cannot leave right now and that the new provider would come see the patient. LR has stopped. hospitalist at bedside evaluating the patient.
[2024-12-05 20:37] VITALS: BP 133/69; PULSE 117; RESP 19; O2SAT 96
--- NOTE | 2024-12-05 22:20 | PM.EVENT ---
Event Note Date of Service: 12/05/24 Event Note: 6:54 PM - Patient wanted to leave AMA. He felt phenobarbital is not helping him and asked for librium which helped him in the past. Treatment with Dilaudid IV was also ordered as he was experiencing significant chronic neck pain. He decided to stay in the hospital for now. Time Spent With Patient Time: Total time managing care of this patient today ____ minutes.
[2024-12-06] VITALS (8 sets, daily range): BP systolic 104–151; BP diastolic 55–75; PULSE 55–78; RESP 16–20; TEMP 36.2–36.6; O2SAT 95–100; BMI 30.2
[2024-12-06] MEDS: Lactated Ringers 1,000 ML 125 ML IVCONT ×3 (00:50→16:10)
[2024-12-06 07:51] LABS: White Blood Count 12.1 X10*3/uL (4.8-10.8)
[2024-12-06 07:52] LABS: Hematocrit 39.5 % (42.0-52.0); Hemoglobin 13.2 g/dl (14.0-18.0); Mean Corpuscular HGB Conc 33.4 g/dl (31.0-36.0); Mean Corpuscular Hemoglobin 28.5 pg (27.0-33.0); Mean Corpuscular Volume 85.3 fL (80.0-98.0); NRBC Abs Auto 0.000 X10*3/uL (0.0-0.012); NRBC Pct Auto 0.0 /100WBC (0.0-0.2); Platelet Count 314 X10*3/uL (160-400); Red Blood Count 4.63 X10*6/uL (4.60-5.80)
[2024-12-06 08:03] LABS: Alanine Aminotransferase 21 U/L (0-40); Albumin Level 3.5 g/dL (3.5-5.0); Alkaline Phosphatase 95 U/L (39-117); Aspartate Amino Transferase 32 U/L (5-37); Blood Urea Nitrogen 14 mg/dL (9-16); Calcium 8.8 mg/dL (8.4-10.2); Creatinine Clr Calc Pharmacy 91.7; Estimated Glomerular Filt Rate > 60; Magnesium 1.8 mg/dL (1.6-2.6); Total Protein 5.8 g/dL (6.5-8.0)
[2024-12-06] MEDS: buPROPion HCl XL 300 MG TAB.ER.24H PO (08:04)
[2024-12-06] MEDS: 0.9 % Sodium Chloride Flush 3 ML SYRINGE IVFLUSH (08:05)
[2024-12-06] MEDS: Thiamine HCL 100 MG in 0.9 % Sodium Chloride 100 ML 202 MG IV (08:05)
[2024-12-06 08:12] LABS: Anion Gap 13 (12-20); Carbon Dioxide 26 mmol/L (22-29); Chloride 106 mmol/L (96-108); Potassium 3.8 mmol/L (3.3-5.1); Sodium 141 mmol/L (135-145)
--- NOTE | 2024-12-06 09:50 | MHC.CM.PN ---
Addendum entered by Madiha Smith RN 12/06/24 15:07: CM ATTEMPTED TO MEET W/PT AGAIN AND PT SOUNDLY SLEEPING, CM TO REVISIT IN AM. Original Note: CM ATTEMPTED TO MEET W/PT HOWEVER PT DECLINES AND STATES, I CAN'T DO ANYTHNG UNTIL I GET SOME PAIN MEDS, NSG AWARE, CM TO REVISIT.
--- NOTE | 2024-12-06 10:30 | P.PNIM_ITS ---
Subjective Subjective Date of Service: 12/06/24 Physical Exam 2 Exam: Exam: Appearing in no acute distress lung sounds are clear to auscultation heart regular rate rhythm, clear S1, S2 positive bowel sounds, abdomen is soft, nontender neuro patient is alert x3, no focal deficits Vital Signs: Vital Signs: Last Vital Signs Temp 97.4 F 12/06/24 07:24 Pulse 64 12/06/24 07:24 Resp 20 12/06/24 07:24 BP 130/74 12/06/24 07:24 Pulse Ox 98 12/06/24 07:24 O2 Del Method Room Air 12/06/24 07:24 BMI result Body Mass Index 30.2 Objective Data Active Medications Acetaminophen (Acetaminophen 325 Mg Tablet) 650 mg PO Q6H PRN PRN Reason: Pain, Mild 1-3,fever,headache Atenolol (Atenolol 100 Mg Tablet) 100 mg PO DAILY [facility]; Protocol Bupropion HCl (Bupropion Hcl Xl 300 Mg Tab.Er.24h) 300 mg PO DAILY [facility] Last Admin: 12/06/24 08:04 Dose: 300 mg Documented By: JACI Calcium Carbonate (Calcium Carbonate 750 Mg Tab.Chew) 750 mg PO Q4H PRN PRN Reason: Heartburn Chlordiazepoxide HCl (Chlordiazepoxide Hcl 25 Mg Capsule) 50 mg PO Q6H [facility] Stop: 12/06/24 13:31 Last Admin: 12/06/24 08:04 Dose: 50 mg Documented By: JACI Chlordiazepoxide HCl (Chlordiazepoxide Hcl 25 Mg Capsule) 25 mg PO Q6H [facility] Stop: 12/07/24 19:31 Chlordiazepoxide HCl (Chlordiazepoxide Hcl 25 Mg Capsule) 25 mg PO BEDTIME [facility] Chlordiazepoxide HCl (Chlordiazepoxide Hcl 25 Mg Capsule) 25 mg PO Q12H [facility] Stop: 12/08/24 07:31 Folic Acid (Folic Acid 1 Mg Tablet) 1 mg PO DAILY [facility] Last Admin: 12/06/24 08:04 Dose: 1 mg Documented By: JACI Heparin Sodium (Porcine) (Heparin Sodium,Porcine 5,000 Unit/Ml Vial) 5,000 unit SUBCUT Q12H [facility] Last Admin: 12/06/24 03:28 Dose: 5,000 unit Documented By: ELSIE Hydromorphone HCl (Hydromorphone Hcl 1 Mg/Ml Syringe) 1 mg IVPUSH Q3H PRN; Protocol PRN Reason: Pain, Severe (Pain Scale 7-10) Last Admin: 12/06/24 09:49 Dose: 1 mg Documented By: JACI Lactated Ringer's (Lr) 1,000 mls @ 125 mls/hr IVCONT .Q8H [facility] Last Admin: 12/06/24 08:05 Dose: 125 mls/hr Documented By: JACI Thiamine HCl 100 mg/ Sodium (Chloride) 101 mls @ 202 mls/hr IV DAILY [facility] Stop: 12/09/24 08:59 Last Infusion: 12/06/24 08:50 Dose: Infused Documented By: JACI Magnesium Hydroxide (Milk Of Magnesia 30 Ml Oral.Susp) 30 ml PO DAILY PRN PRN Reason: Constipation Melatonin (Melatonin 3 Mg Tablet) 6 mg PO BEDTIME PRN PRN Reason: Insomnia Multivitamins/Vitamin C (Multivitamin Tablet) 1 tab PO DAILY [facility] Last Admin: 12/06/24 08:04 Dose: 1 tab Documented By: JACI Non-Formulary Medication (Dextroamphetamine-Amphetamine) 1 tab PO BID [facility] Ondansetron HCl (Ondansetron Hcl 4 Mg/2 Ml Vial) 4 mg IVPUSH Q8H PRN PRN Reason: Nausea and Vomiting Pharmacy Consult (Consult Rx Etoh Phenob Im/Po) 1 each MISCELLANE ONCE PRN; Protocol PRN Reason: Consult order Sodium Chloride (0.9 % Sodium Chloride Flush 3 Ml Syringe) 3 ml IVFLUSH QSHIFT [facility] Last Admin: 12/06/24 08:05 Dose: 3 ml Documented By: JACI Labs 12/06/24 06:42 12/06/24 06:42 Labs: Laboratory Results - last 24 hr 12/05/24 12/05/24 12/06/24 14:57 15:03 06:42 MCV 82.5 85.3 MCH 28.8 28.5 MCHC 34.9 33.4 RDW 16.5 H 16.4 H Plt Count 324 314 MPV 9.6 10.5 Immature Gran % (Auto) 0.5 H Neut % (Auto) 72.4 Lymph % (Auto) 19.8 L [place] % (Auto) 6.2 Eos % (Auto) 0.6 Baso % (Auto) 0.5 Lymph # (Auto) 2.2 [place] # (Auto) 0.7 Eos # (Auto) 0.1 Baso # (Auto) 0.1 Abs Immat Gran (auto) 0.05 H Absolute Neuts (auto) 7.9 Absolute Nucleated RBC 0.000 0.000 Nucleated RBC % (auto) 0.0 0.0 Anion Gap 21 H 13 Estim Creat Clear Calc 108.6 91.7 Estimated GFR > 60 > 60 Random Glucose 79 100 Calcium 9.3 8.8 Magnesium 1.8 Total Bilirubin 0.7 AST 32 ALT 21 Alkaline Phosphatase 95 Total Protein 5.8 L Albumin 3.5 Urine Opiates Screen POSITIVE H Ur Buprenorphine Scrn Not Detected Ur Oxycodone Screen Not Detected Urine Methadone Screen Not Detected Urine Fentanyl Screen Not Detected Ur Barbiturates Screen POSITIVE H Ur Phencyclidine Scrn Not Detected Ur Amphetamines Screen Not Detected U Benzodiazepines Scrn Not Detected Urine Cocaine Screen Not Detected U Marijuana (THC) Screen Not Detected Ethyl Alcohol 88 Assessment and Plan (1) Alcohol withdrawal syndrome: Status: Acute Plan 54-year-old man admitted with alcohol withdrawal syndrome Alcohol withdrawal syndrome alcohol level 88 Addiction consultation IV fluids Iv thiamine, multivitamin, folic acid Regular diet Started on phenobarbital but was not working for him so changed to librium with good effect Mild transaminitis Likely secondary to alcohol use Mental health Continue home medications Hypertension Continue atenolol DVT prophylaxis with heparin Full code Quality Stroke Does the patient have a stroke diagnosis?: No VTE Prior VTE?: No VTE Risk Level:: Medical - moderate - high VTE Device Contraindication: Treatment Not Indicated VTE Drug Contraindication: N/A - Med Ordered
--- NOTE | 2024-12-06 17:24 | ECG_ITS ---
Test Reason : Bradycardia Blood Pressure : */* mmHG Vent. Rate : 48 BPM Atrial Rate : 48 BPM P-R Int : 204 ms QRS Dur : 90 ms QT Int : 448 ms P-R-T Axes : 23 4 7 degrees QTcB Int : 400 ms Sinus bradycardia Minimal voltage criteria for LVH, may be normal variant ( R in aVL ) Borderline ECG When compared with ECG of 20-Nov-2024 07:34, Vent. rate has decreased by 31 bpm Referred By: Marianna Sprague Electronically Signed By: Perez Mckeon
--- NOTE | 2024-12-06 17:25 | MHC.RECOVRN ---
Tw attempted to meet pt in after consult placed to Addiction Medicine for alcohol withdrawal with the intention to discuss recovery and support. On approach pt is laying in bed with eyes closed, slightly diaphoretic, no noted tremor. Pt wakes to name being called but is unable to keep eyes open and states, Im just so tired. I just want to rest . TW will attempt to meet pt at a later date/time for assessment and is available for for questions and concerns as needed
[2024-12-06] MEDS: diazePAM 10 MG/2 ML CARTRIDGE IVPUSH (23:25)
[2024-12-07] MEDS: Lactated Ringers 1,000 ML 125 ML IVCONT ×2 (00:26→07:56)
--- NOTE | 2024-12-07 05:40 | PC.NURSE ---
pt unplugged camera twice so far, explained that it is for his safety since he is high fall risk pt.
[2024-12-07 06:12] VITALS: BP 159/72; PULSE 51; RESP 16; TEMP 36.2; O2SAT 99
--- NOTE | 2024-12-07 07:29 | MHC.CM.PN ---
Addendum entered by Madiha Smith RN 12/07/24 11:30: PT DISCHARGING HOME SELF CARE, PT HAS BEEN PROVIDED W/C SHUTTLE VOUCHER W/RIDE SCHEDULED FOR 12PM. Original Note: EMR REVIEWED, PT W/ETOH WITHDRAWAL, CM MET W/PT, PT IRRITABLE AND ARGUMENTATIVE HOWEVER AGREES TO COMPLETE CM ASSESSMENT, PT IS FULLY INDEP, NO DME/SERVICES, NO INTEREST IN ADDICTION MEDICINE/ETOH TX, PT STATES, I'M DISCHARGING TODAY AND WILL ARRANGE PRIVATE TRANSPORT. PT IS POOR HISTORIAN AND DENIES HAVING A PCP AND THEN REPORTS HE GOES TO [facility]. PT DECLINES TO COMPLETE A HCP AT THIS TIME.
[2024-12-07] MEDS: Thiamine HCL 100 MG in 0.9 % Sodium Chloride 100 ML 202 MG IV (07:55)
[2024-12-07] MEDS: buPROPion HCl XL 300 MG TAB.ER.24H PO (07:57)
[2024-12-07 08:00] VITALS: BP 153/68; PULSE 86; RESP 20; TEMP 36.2; O2SAT 98
--- NOTE | 2024-12-07 10:44 | P.DS_ITS ---
DS: Providers Provider Date of Service: 12/07/24 Date of admission: 12/05/24 15:59 Date of discharge: 12/07/24 Primary care physician: None Physician Consults: 12/05/24 16:02 Addiction Medicine Provider Routine Consulting Provider: Addiction Covering Reason for consultation: etoh 12/07/24 07:15 Consult to Psychiatry Routine Consulting Provider: [facility] [place] Psych Covering Reason for consultation: severe depression, possible medication change, ETOH DS: Diagnosis Discharge Diagnosis (1) Alcohol withdrawal syndrome: Status: Acute DS: Summary Hospital Course Hospital Course: 54-year-old man with a history of alcohol abuse presents today with reports of alcohol intoxication, patient reported that he has been drinking straight for the past 3 days and he has drank up to 30 beers yesterday. He has not been eating or drinking well. He does live alone with his cat. He denied any chest pain, nausea, vomiting, diarrhea, hallucinations. He was having some complaints of anxiousness, tremulousness, nausea, did have 1 episode of vomiting. The ER, alcohol level of 88 normal mildly elevated liver enzymes, mildly elevated blood pressure. Patient was started on phenobarbital protocol and given a dose of Valium in the ER. He will be admitted for further management and treatment of acute alcohol withdrawal syndrome. 54-year-old man treated for alcohol withdrawal syndrome, alcohol level on admission was 88. Treated with IV fluids, IV thiamine, multivitamin, folic acid. Initially treated with phenobarbital the patient reported that the medication was not working and he was started on Librium which he reported work much better. Harish's also asking for pain medication for pain to his hands and numbness. Previously he had cervical spine CT and lumbar x-ray which were both negative. He can refer outpatient with Neurosurgery, may require outpatient MRI. We will send home with a few days of oxycodone. She was encouraged to stop drinking alcohol and seek outpatient assistance with this. Mild transaminitis. Likely secondary to alcohol use Mental health. Continue home medications Hypertension. Continue Time Attestation Discharge Coordination Time (in mins): 42 Quality: Safe Use of Opioids Does Pt have an Active Cancer Diagnosis on the Problem List?: No Quality: Stroke Does the patient have a stroke diagnosis?: No Physical Exam Exam: Exam: Appearing in no acute distress head is normocephalic atraumatic eyes pupils are PERRLA sclera is anicteric mouth throat mucous membranes are intact and moist neck is supple no lymphadenopathy, no JVD noted lung sounds are clear to auscultation heart regular rate rhythm, clear S1, S2 positive bowel sounds, abdomen is soft, nontender neuro patient is alert x3, no focal deficits Vital Signs: Vital Signs: Last Vital Signs Temp 97.2 F 12/07/24 08:00 Pulse 86 12/07/24 08:00 Resp 20 12/07/24 08:00 BP 153/68 H 12/07/24 08:00 Pulse Ox 98 12/07/24 08:00 O2 Del Method Room Air 12/07/24 08:00 BMI result Body Mass Index 30.2 Discharge Plan Discharge Anticipated Discharge Date/Time: 12/07/24 10:40 Patient Disposition: Home, Self-Care Discharge Diagnosis: Alcohol withdrawal syndrome Referrals: Danny Cancino MD, PhD [Physician, Neuro Spine] - 1 Week Referral Note: Numbness and tingling to hands. Cervical spine CT and lumbar spine x-ray negative for fracture, mass. Discharge Medications: New oxycodone 5 mg tablet 5 mg PO BID PRN (Reason: pain) Qty: 8 0RF Rx Instructions: Partial Fill upon patient request. Continued dextroamphetamine-amphetamine 7.5 mg tablet 1 tab PO BID atenolol 100 mg tablet 100 mg PO DAILY clonazepam 0.5 mg tablet 0.5 mg PO BID PRN (Reason: anxiety) diphenoxylate-atropine 2.5-0.025 mg tablet 1 tab PO QID bupropion HCl 300 mg tablet extended release 24 hr 300 mg PO DAILY Discharge Orders: Discharge Order (Routine); Ordered 12/07/24 Ordered By: Marianna Sprague Diet: Advance to usual diet Activity on Discharge: As tolerated Stand Alone Forms: Patient Portal Discharge page Print Language: Latvian Care Plan Goals: Stopped drinking alcohol, seek outpatient assistance for this Health Concerns: Alcohol withdrawal syndrome Plan of Treatment: Follow up with primary care provider as needed Take all medications as prescribed Assessment: See discharge summary
--- NOTE | 2024-12-07 11:26 | MHC.RECOVRN ---
TW met with the patient in [id number]? to discuss current alcohol use and concerns related to increased risk of alcohol use and related problems.? On approach pt was laying in bed, slightly diaphoretic but denied withdrawal symptoms and reported he wanted to go home to rest, ?everyone keeps bothering me?. Pt reports?he feels ready to discharge. Pt also reported 8/10 neck and back pain which was relayed to primary RN upon completion of TW?s assessment. Pt? was guarded and difficult to engage. Pts response to questions during assessment were short 1-2 answers. [place] through interview pt reported, ?i just want to leave?? Intention was to discuss alcohol use and recovery/support options however pt declines intervention, MAURO, or appt for tx related to AUD at this time. TW left pt resources and educational information including harm reduction techniques such as drinking below the recommended limit, pathways to recovery, local AA meeting list and information on recovery coaching.
== END 2024-12-07 12:33 | disposition home or self-care (01) | DRG 775 ==
LOC: HO.ED 15:51 → HO.EDOVER 16:05 → HO.IMC 23:30
PROVIDERS: Admitting Provider Nurse Practitioner Acute Care; Emergency Provider Emergency Medicine; Visit Provider Nurse Practitioner Acute Care
DX: F10.139 Alcohol abuse with withdrawal, unspecified (principal); F10.129 Alcohol abuse with intoxication, unspecified; F17.210 Nicotine dependence, cigarettes, uncomplicated; I10 Essential (primary) hypertension; Z71.6 Tobacco abuse counseling; Y90.4 Blood alcohol level of 80-99 mg/100 ml; Z79.899 Other long term (current) drug therapy
CPT/HCPCS: 36415; 80048; 80053; 80307; 83735; 85025; 85027; 93005; 99285; J1171; J1644; J2560; J3360; J3411; J7120; S9485

== ENCOUNTER 2024-12-05 15:59 | Outpatient (BNV) | payer OTHER, SELFPAY | END 2024-12-06 17:24 | PROVIDERS: Admitting Provider Nurse Practitioner Acute Care; Emergency Provider Emergency Medicine; Visit Provider Internal Medicine Cardiovascular Disease | DX: R00.1 Bradycardia, unspecified (principal) | CPT/HCPCS: 93010 ==

== ENCOUNTER → 2024-12-05 15:59 | Outpatient (BNV) | payer OTHER, SELFPAY | PROVIDERS: Admitting Provider Nurse Practitioner Acute Care; Emergency Provider Emergency Medicine; Visit Provider Nurse Practitioner Acute Care | DX: F10.90 Alcohol use, unspecified, uncomplicated (principal) | CPT/HCPCS: 99223; 99232; 99239; 99499 ==

== ENCOUNTER 2025-02-09 07:49 | Inpatient (IN) | payer OTHER, SELFPAY ==
--- OUTSIDE RECORDS SUMMARY | 2023-08-19 08:00 | XMS_ITS ---
Author Organization [facility] Address [address] [place] [address] Care Team Providers Care Coverstitch Binder Name Role Phone Jus Overton Primary Care Provider Unavaila Jus Garcia Jr Unavailable [phone] REASON FOR VISIT screening Encounters Encounter Location Date Provider Diagnosis [facility] [place] [address] [place] [phone] 08/19/2023 Jus Overton Jr Encounter for screening [...] Name:Jus quintero Jr, 05/11/2025 03:15:00 PM, [address], [address], [place], [address], Progress Notes * MIKE JUÁREZDOB: [birth year] (54 yo M)Acc No.[id number]:08/19/2023 COLON WITH MAC Patient: MIKE NAJERA Provider: Fredrick Overton MD :1970 A ge:52 Y S ex:Male Date:08/19/2023 Address:[address] [place] [address], [place], [place] Pcp:Jus Overton Subjective: * Chief Complaints: * [...] 0 08/19/2023 Generated for Mars ashford/Marlene/Anaitting on: 04/11/2024 08:26 AM EST
[2025-02-09] VITALS (10 sets, daily range): BP systolic 138–185; BP diastolic 79–98; PULSE 45–79; RESP 12–22; TEMP 36.8–37.2; O2SAT 96–99; BMI 28.7
--- NOTE | 2025-02-09 | ECG_ITS ---
Test Reason : CP/bradycardia Blood Pressure : */* mmHG Vent. Rate : 55 BPM Atrial Rate : 55 BPM P-R Int : 184 ms QRS Dur : 86 ms QT Int : 456 ms P-R-T Axes : -21 1 4 degrees QTcB Int : 436 ms Sinus bradycardia with sinus arrhythmia Moderate voltage criteria for LVH, may be normal variant ( R in aVL , Yung product ) Borderline ECG When compared with ECG of 09-Feb-2025 08:02, No significant change was found Referred By: Greg Salazar Electronically Signed By: Perez Mckeon
--- NOTE | ~2025-02-09 | MR_ITS ---
CLINICAL HISTORY: Lower leg weakness --- Additional Notes or Special Instructions: Neurology would like to complete the MRI of brain that was MR Brain without gadolinium Comparison: MR/REG - MR HEAD/BRAIN WO CON - 02/09/25 19:35 EST Findings: No restricted diffusion. No intra-axial mass or hemorrhage. No midline shift. No hydrocephalus. Vascular flow voids are intact. The orbits are normal. The sinuses and mastoid air cells are clear. The soft tissues and calvarium are grossly unremarkable. IMPRESSION: Unremarkable brain MRI. This document has been electronically signed by: Leonie García MD on 02/10/2025 21:33:33
--- NOTE | ~2025-02-09 | MR_ITS ---
CLINICAL HISTORY: Lower leg weakness, R O TRANSVERSE MYELITIS --- Additional Notes or Special Instructions: Neurology would like imaging to rule out transverse myelitis Exam: MRI of the cervical spine, including gadolinium enhanced imaging. Comparison: CT cervical spine 02/09/2025. Findings: Cervical vertebral body heights and alignment appear maintained. There are Modic type 1 endplate signal changes, most significant at C3-4 and C6-7 levels. There is diffuse disc desiccation. There is disc space narrowing, more significant at C3-C5 and C6-7 levels. There is focal T2 hyperintensity within the cervical cord at C3-4 level (7; 9 and less well delineated on 8; 12), associated with spinal stenoses, likely related to short segmental myelopathy (extending over a craniocaudad distance of the proximally 9 mm, measured on 7; 9). Remaining cervical cord signal intensity appears well-maintained. Axial images reveal the following: C2-3: No focal disc herniation, spinal or foraminal compromise. C3-4: Moderate posterior disc-osteophyte complex and mild buckling of the ligamentum flavum result in ggubkmaj-ny-remaiv central canal stenoses (9; 12 and 8; 12). There is bilateral mild facet arthropathy, left worse than right, and mild bilateral uncovertebral joint hypertrophy. Findings result in significant bilateral foraminal stenoses at this level. C4-5: Mild posterior disc-osteophyte complex and left worse than right uncovertebral joint hypertrophy are present. Findings result in mild central canal stenoses as well as qmfukqdn-qw-dwkumh left foraminal stenoses. No significant right foraminal stenoses. C5-6: Mild posterior disc-osteophyte complex and right worse than left uncovertebral joint hypertrophy as well as mild bilateral facet arthropathy are present. Findings result in mild central canal stenoses as well as bilateral ptjgifjd-kp-yzagib foraminal stenoses. C6-7: Mild posterior disc-osteophyte complex and bilateral uncovertebral joint hypertrophy are present. Findings result in hdtf-rb-hdjoheuy central canal stenoses (9; 23 and 8; 23), as well as bilateral txbfjilg-dd-akpioq foraminal stenoses. Gadolinium enhanced imaging reveals no abnormal epidural or paraspinal enhancement. No enhancing intradural lesions. Impression: 1. Moderate posterior disc-osteophyte complex and buckling of the ligamentum flavum at C3-4 result in hljxunzd-os-lppkll central canal stenoses. There is a short segment of the cervical cord T2 hyperintensity at this level, most likely related to focal myelopathy or myelomalacia. 2. No other significant cervical cord signal abnormality. 3. Multilevel degenerative changes with a additional multilevel spinal and foraminal stenoses as described above. This document has been electronically signed by: Barrett Dye MD on 02/11/2025 14:01:39
--- NOTE | ~2025-02-09 | CT_ITS ---
CLINICAL HISTORY: fall, leg weakness CT lumbar spine without contrast Comparison: None provided Findings: Vertebral alignment is within normal limits. No acute fractures or dislocations. Multilevel degenerative endplate changes of the lumbar spine with posterior disc bulges at L1-2 and L2-3 and L3-4 causing moderate spinal stenosis. Disc bulges at L4-5 and L5-S1 without significant spinal stenosis. Visualized abdominal contents unremarkable. IMPRESSION: No acute fracture. Degenerative changes with moderate spinal stenoses as above. This document has been electronically signed by: Bárbara Concepcion MD on 02/09/2025 19:17:18
--- NOTE | ~2025-02-09 | MR_ITS ---
CLINICAL HISTORY: profound weakness Pt was incompliance when in the scan, scan was aborted after the diffusion due to safety concern. incomplete exam MR Brain without gadolinium Comparison: CT/OH/SR - CT HEAD WITHOUT IV CONTRAST - 02/09/25 09:15 EST Findings: Examination is terminated early due to patient tolerance. No restricted diffusion. No additional abnormality identified on limited evaluation. IMPRESSION: Examination terminated prematurely due to patient tolerance. No acute intracranial abnormality on limited evaluation. This document has been electronically signed by: Bárbara Concepcion MD on 02/09/2025 20:49:11
--- NOTE | ~2025-02-09 | MR_ITS ---
CLINICAL HISTORY: Lower leg weakness --- Additional Notes or Special Instructions: Neurology would like imaging to rule out transverse myelitis Exam: Pre and post contrast-enhanced MRI of the thoracic spine. Comparison: None. Findings: Thoracic vertebral body heights and alignment appear maintained. There is a minimal Modic type 2 endplate signal change at T11-T12. Remaining vertebral signal intensities appear maintained. There is minimal diffuse disc space narrowing. Signal intensity within the thoracic cord is well-maintained with no evidence of focal T2 hyperintensity or evidence of transverse myelitis or other myelopathy. Axial images reveal no significant focal disc herniation or compromise of the thecal sac or spinal canal. No abnormal epidural or paraspinal soft tissue is appreciated. Gadolinium enhanced imaging reveals no abnormal epidural or paraspinal enhancement. No enhancing intradural lesions. A partially imaged likely proteinaceous right renal cyst is mildly T1 hyperintense and T2 hypointense (23; 31 and 20; 31), measuring 2.2 cm AP dimension, is incidentally noted. Impression: 1. No evidence of myelitis or abnormal signal intensity within the thoracic cord. 2. No significant focal disc herniation or compromise of the spinal canal. This document has been electronically signed by: Barrett Dye MD on 02/11/2025 13:56:40
--- NOTE | ~2025-02-09 | XR_ITS ---
CLINICAL HISTORY: weakness 2 view chest x-ray Comparison: None provided Findings: No consolidation or effusion. Heart size is normal. No acute fracture. IMPRESSION: 1. No acute findings. This document has been electronically signed by: Bárbara Concepcion MD on 02/09/2025 18:35:20
--- NOTE | ~2025-02-09 | CT_ITS ---
EXAMINATION: CT CERVICAL SPINE WITHOUT CONTRAST CLINICAL INFORMATION: fall with unknown headstrike COMPARISON: Cervical spine CT on November 20, 2024. Head CT obtained concurrently. TECHNIQUE: This CT examination was performed using dose optimization techniques as appropriate, variously including the following: *Automated exposure control *Adjustment of mA and/or kV according to patient size (this includes techniques or standardized protocols for targeted exams where dose is matched to indication/reason for exam; i.e. extremities or head) *Use of iterative reconstruction technique FINDINGS: Alignment: Straightening of the cervical lordosis. Minimal anterolisthesis of C5 and C6 and minimal retrolisthesis of C6 on C7 is stable from November 2024. Vertebrae: Vertebral body heights are maintained. Prominent anterior marginal osteophytes at C4-C5, and in lesser degree at C5-C6 and C6-C7 are unchanged. Minimal posterior marginal osteophytes at C3-C4, unchanged. Posterior elements are intact. Intervertebral disc spaces: Mild loss of height is more prominent at C3-C4 and C6-C7. Craniovertebral junction: Normal alignment. No fracture. Soft tissues: Prevertebral and posterior paraspinal soft tissues are unremarkable. Other findings: Moderate spinal canal stenosis at C5-C6. Moderate neuroforaminal stenosis bilaterally at C3-C4, on the left at C4-C5, bilaterally at C5-C6 and bilaterally at C6-7. Upper chest: Centrilobular and paraseptal emphysema. No apical pneumothorax. CT/CT cervical spine wo IV con IMPRESSION: No acute findings. Electronically signed by: Elsy Figueroa MD 02/09/2025 10:10 AM [facility] [place] [place]
--- NOTE | ~2025-02-09 | CT_ITS ---
EXAMINATION: CT HEAD WITHOUT CONTRAST CLINICAL INFORMATION: fall with unknown headstrike COMPARISON: None available. TECHNIQUE: Contiguous axial imaging was performed from the skull base to vertex without intravenous administration of contrast. This CT examination was performed using dose optimization techniques as appropriate, variously including the following: *Automated exposure control *Adjustment of mA and/or kV according to patient size (this includes techniques or standardized protocols for targeted exams where dose is matched to indication/reason for exam; i.e. extremities or head) *Use of iterative reconstruction technique FINDINGS: Brain parenchyma: No shift of midline structures. No parenchymal hemorrhage, evidence of acute territorial infarct or mass effect. Ventricles/extra-axial spaces: No hydrocephalus. No extra-axial fluid collection. Skull/extracranial structures: No depressed skull fracture. Paranasal sinuses and mastoid air cells are clear. Bilateral orbital globes are unremarkable. CT/CT head/brain wo IV con IMPRESSION: No acute intracranial pathology. Electronically signed by: Elsy Figueroa MD 02/09/2025 09:55 AM [facility] [place]
--- NOTE | 2025-02-09 07:53 | ECG_ITS ---
Test Reason : fall Blood Pressure : */* mmHG Vent. Rate : 71 BPM Atrial Rate : 71 BPM P-R Int : 194 ms QRS Dur : 88 ms QT Int : 394 ms P-R-T Axes : -18 -1 12 degrees QTcB Int : 428 ms Normal sinus rhythm Moderate voltage criteria for LVH, may be normal variant ( R in aVL , Yung product ) Borderline ECG When compared with ECG of 06-Dec-2024 17:10, Vent. rate has increased by 23 bpm Referred By: Generic ED Physician Electronically Signed By: Perez Mckeon
--- NOTE | 2025-02-09 08:08 | PC.NURSE ---
patient presents from home via ems, states that he fell last night around midnight, and was on the floor since. patient was unable to get up, states he fell because there was some boxes in the way. patient denies headstrike but states he hit his right side of his face, right eye noted to be swollen at this time, denies blood thinners. 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 patient states he is unable to use his hands like he used to due to numbness in bilat hands patient handed a cup of water upon arrival and was unable to grasp with one hand, needed to lift cup with both hands. ems had to break into patients house due to patient being on the floor and unable to get up, patient states he lives alone. per pt chart patient has etoh use, ems found etoh in the home which patient states is from a friend. patient is alert and oriented x3. ems stated patient wanted to refuse transfer but patient was very unsteady on his feet almost fall x4.
--- NOTE | 2025-02-09 08:21 | ED.GENADULT ---
HPI - General Adult General Chief complaint: Fall Stated complaint: ON FLOOR/FALL @MIDNIGHT,-LOC,R EYE SWELLING,UNSTEA Time Seen by Provider: 02/09/25 08:19 Source: patient, EMS, RN notes reviewed and old records reviewed Mode of arrival: EMS History of Present Illness ED Provider: Dodie HPI narrative: Patient is a 54-year-old male with history of alcohol use disorder, alcohol withdrawal, depression presenting to the emergency department after a fall at home around midnight. Patient reportedly could not get himself up off the floor and called 911. EMS reported they had to break into his home to get him off the floor. Patient reports that for the past few months he has had an unsteady gait but that this is his 1st fall. States that he had an outpatient x-ray but unable to state of what. Complains of neck pain and numbness/tingling to bilateral hands for the past few months. Has not seen PCP regarding these symptoms. States he has not drank any alcohol since December. Denies any drug use, also denies any history of IV drug use in the present or past. MD complaint: unsteady gait Related Data Home Medications ?Medication ?Instructions ?Recorded ?Confirmed atenolol 100 mg tablet 100 mg PO DAILY 12/05/24 02/10/25 bupropion HCl 300 mg 24 hr tablet, 300 mg PO DAILY 12/05/24 02/10/25 extended release clonazepam 0.5 mg tablet 0.5 mg PO BID PRN anxiety 12/05/24 02/10/25 dextroamphetamine-amphetamine 7.5 7.5 mg PO BID attention deficit 12/05/24 02/10/25 mg tablet hyperactivity disorder diphenoxylate-atropine 2.5 1 tab PO QID loose stool 12/05/24 02/10/25 mg-0.025 mg tablet Previous Rx's ?Medication ?Instructions ?Recorded acetaminophen 325 mg tablet 975 mg (3 x 325 mg) PO Q6H PRN 02/13/25 Pain, Mild 1-3,Fever,Headache 15 days #60 tabs amlodipine 5 mg tablet 5 mg PO DAILY 30 days #30 tabs 02/13/25 folic acid 1 mg tablet 1 mg PO DAILY 30 days #30 tabs 02/13/25 lidocaine 4 % topical patch 1 patch topical TID PRN pain 14 02/13/25 days #5 ea methocarbamol 750 mg tablet 750 mg PO Q8H 14 days #42 tabs 02/13/25 multivitamin (Daily-Stevie tablet) 1 tab PO DAILY 30 days #30 tabs 02/13/25 thiamine mononitrate (vit B1) 100 100 mg PO DAILY 30 days #30 tabs 02/13/25 mg tablet Allergies Allergy/AdvReac Type Severity Reaction Status Date / Time amoxicillin (Augmentin) AdvReac Severe Nausea and Verified 02/09/25 08:03 Vomiting clavulanic acid (Augmentin) AdvReac Severe Nausea and Verified 02/09/25 08:03 Vomiting NSAIDS Allergy Intermediate renal Uncoded 02/09/25 08:03 insuff Review of Systems Review of Systems: as per hpi Yes all other systems are reviewed and are negative Constitutional: Constitutional: Reports as per HPI PMFSH Past Medical History Medical History Alcohol use disorder History of COVID-19 History of ADHD Depression HTN (hypertension) Surgical History H/O colonoscopy Hx of colectomy Hx of left inguinal hernia repair History of repair of ACL Hx of arthroscopy of knee Social History Social History Household Members: None Household Members Other:: PET Housing: Condominium Do you presently have visiting nurse or other home services: No Alcohol intake: former Patient Tobacco Use Status: Current everyday Tobacco user Tobacco use type: Cigarette Cigarette Packs Per Day: 0.5 Cigarettes Per Day: 15 e-Cigarette/Vaping Use: Never Used Second Hand Smoke Exposure: Yes service: No Physical Exam ED Vital Signs: Vital Signs - 24 hr 02/09/25 10:00 02/09/25 12:00 02/09/25 14:00 Temperature Pulse Rate 60 58 78 Respiratory Rate 18 12 22 H Blood Pressure 138/88 150/88 H 158/88 H Pulse Oximetry 96 96 96 Oxygen Delivery Method Room Air Room Air Room Air 02/09/25 16:01 02/09/25 18:37 02/09/25 20:07 Temperature 98.5 F 98.2 F 98.2 F Pulse Rate 64 68 62 Respiratory Rate 16 12 20 Blood Pressure 171/92 H 152/79 H 142/81 H Pulse Oximetry 99 99 97 Oxygen Delivery Method Room Air Room Air Room Air 02/09/25 20:18 02/09/25 21:45 02/10/25 00:00 Temperature 98.8 F 98.4 F Pulse Rate 45 L 54 Respiratory Rate 16 Blood Pressure 142/81 H 168/84 H Pulse Oximetry 98 Oxygen Delivery Method Room Air BMI result Body Mass Index 28.7 Vital signs have been reviewed and appear to be correct. Blood pressure normal. Heart rate normal. Respiratory rate normal. Temperature normal. Oxygen saturation normal. Const General: cooperative and no acute distress Orientation/consciousness: oriented to person, oriented to place, oriented to time and patient oriented x3 Limitations: no limitations HENMT Head: Yes normocephalic and Yes atraumatic Ears: external ears normal General nose exam: Normal external nose present Face and sinus: Yes face symmetric Mouth: oropharynx normal and moist mucous membranes Throat: Yes uvula midline Eyes Pupils: Equal, round and reactive pupils present Neck Neck: Yes normal visual inspection, Yes no meningeal signs and Yes supple Resp Effort & Inspection: normal respiratory effort and able to speak in complete sentences Auscultation: clear to auscultation bilaterally Cardio Rate: regular rate Rhythm: regular rhythm Heart sounds: S1 normal heart sound present and S2 normal heart sound present GI Palpation (GI): Soft to palpation and nontender Auscultation: normoactive bowel sounds General: Yes no CVA tenderness Back/Spine/Pelvis Back: no CVA tenderness Skin Other: multiple bruises to bilateral arms in various stages of healing General skin exam: elasticity normal and turgor normal Neuro General: oriented to person, oriented to place, oriented to time, patient oriented x3, tone normal, moves all extremities, Normal light touch and pain sensation, no meningeal signs, no focal motor deficits, CN's II-XI intact bilaterally and deep tendon reflexes 2+ bilaterally Cranial nerves: Yes Equal, round and reactive pupils present Cognition (Neuro): normal cognition Motor exam (neuro): strength not 5/5 throughout (3/5 all extremities), Pronator motor function not present, no tremor noted, no asterixis, Motor fasciculations not present and Motor abnormalities not present Sensory Exam: Normal double simultaneous stimulation for sensation Extrem General: Yes full ROM, Yes no pedal edema and Yes no calf tenderness Psych Mental Status: mental status grossly normal Affect: normal affect Thought process: Normal thought process present Course Reevaluation(s) Reevaluation #1: Patient received in sign-out at change of shift pending a CT lumbar spine, a brain MRI, disposition. When I went to evaluate the patient, he did have significant weakness to lower extremities. The strength to bilateral lower extremities was equal but only about 3/5 who major muscle groups. This includes flexion at the waist, extension of the waist, flexion of the knee, extension of the knee. 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 He seems somewhat hyper reflexive. I was unable to gather any additional information that seemed no pertinent. He is consistent that his symptoms started 3 months ago. He has had multiple falls in the last 3 months due to weakness. He reports that he has been able to work but he is only walk 20-50 feet while leaning on his medication cart before needing to sit down to rest. I discussed with my attending, Dr. Olmstead who agrees that a lumbar puncture was indicated. The patient's CT lumbar spine did not show any obvious traumatic injuries. Brain MRI was limited exam as the patient could not tolerate exam but did not show any glaring abnormalities. The patient is still unable to stand, unclear etiology with some of the CSF studies still pending Time: 23:43 Consultations Consultation #1: Attending note, : I became involved in this patient's care after the patient has been in the emergency room for over 12 hours. At the time that I became involved it was apparent that the patient had had an apparently negative brain MRI as well as a cervical spine CT scan. and lumbar spine CT scan. I went to see the patient with the physician assistant scientist. The patient was awake and alert with a fairly normal mental status. He described problems with weakness in his legs going on for possibly as long as 2 months. On my exam the patient seemed to be mildly hyperreflexic at the knees and ankles. I felt toes were going a bilaterally. At the time that I saw the patient I did not feel we would be able to get an MRI of the spine to look for spinal cord pathology but I did feel we could try to get CSF to see if there were any suggestions on the patient's CSF. My suspicion for an infectious process was very low. The patient seemed to move around fairly easily although weakly and I did not have a high suspicion for an epidural abscess. The patient has a high white count but did not seem toxic or septic. Informed consent was obtained for a spinal tap. A time-out was done. The spinal tap itself was more difficult than I anticipated and several passes were made before I was able to obtain clear spinal fluid. There was no significant cell count on the fluid of the spinal tap but there was an elevated protein level. The patient will be admitted because of the weakness in the legs, the difficulty walking, the fall, and for further evaluation of the these neurological symptoms associated with the an elevated CSF protein. Medications Administered Discontinued Medications Generic Name Dose Route Start Last Admin Trade Name Freq PRN Reason Stop Dose Admin Amlodipine Besylate 5 mg 02/11/25 12:55 02/13/25 06:42 Amlodipine Besylate 5 Mg Tablet PO 5 mg DAILY TORI Administration Protocol Atenolol 100 mg 02/10/25 11:10 02/13/25 06:42 Atenolol 100 Mg Tablet PO 100 mg DAILY TORI Administration Protocol Bupropion HCl 300 mg 02/10/25 11:10 02/13/25 06:42 Bupropion Hcl Xl 300 Mg Tab.Er.24h PO 300 mg DAILY TORI Administration Clonazepam 0.5 mg 02/10/25 01:03 02/13/25 06:42 Clonazepam 0.5 Mg Tablet PO 0.5 mg BID PRN Administration Anxiety Diazepam 10 mg 02/09/25 22:12 02/09/25 22:19 Diazepam 10 Mg/2 Ml Cartridge IVPUSH 02/09/25 22:13 10 mg STAT STA Administration Enoxaparin Sodium 40 mg 02/10/25 00:30 02/12/25 23:41 Enoxaparin Sodium 40 Mg/0.4 Ml Syringe SUBCUT 40 mg Q24H TORI Administration Folic Acid 1 mg 02/10/25 11:40 02/13/25 06:42 Folic Acid 1 Mg Tablet PO 02/13/25 11:39 1 mg DAILY TORI Administration Gadobutrol 10 ml 02/11/25 13:33 02/11/25 13:33 Gadobutrol 10 Ml Vial IVPUSH 02/11/25 13:34 8.5 ml ONCE ONE Administration Hydromorphone HCl 1 mg 02/10/25 00:17 02/11/25 02:32 Hydromorphone Hcl 1 Mg/Ml Syringe IVPUSH 1 mg Q4H PRN Administration Pain, Severe (Pain Scale 7-10) Protocol Hydromorphone HCl 1 mg 02/11/25 06:26 02/12/25 12:55 Hydromorphone Hcl 1 Mg/Ml Syringe IVPUSH 1 mg Q4H PRN Administration Pain, Severe (Pain Scale 7-10) Protocol Hydromorphone HCl 1 mg 02/12/25 16:45 02/13/25 08:51 Hydromorphone Hcl 1 Mg/Ml Syringe IVPUSH 1 mg Q3H PRN Administration Pain, Severe (Pain Scale 7-10) Protocol Hydromorphone HCl 0.5 mg 02/13/25 05:34 02/13/25 05:49 Hydromorphone Hcl 0.5 Mg/0.5 Ml Syringe IVPUSH 02/13/25 05:35 Not Given ONCE ONE Protocol Sodium Chloride 1,000 mls @ 999 mls/hr 02/09/25 08:30 02/09/25 11:09 Ns IV 02/09/25 09:30 Infused .Q1H1M TORI Infusion Sodium Chloride 1,000 mls @ 999 mls/hr 02/09/25 11:00 02/09/25 12:40 Ns IV 02/09/25 12:00 Infused .Q1H1M TORI Infusion Sodium Chloride 1,000 mls @ 999 mls/hr 02/09/25 17:15 02/09/25 18:23 Ns IV 02/09/25 18:15 Infused .Q1H1M TORI Infusion Lactated Ringer's 1,000 mls @ 80 mls/hr 02/10/25 01:15 02/11/25 10:46 Lr IVCONT Infused .[id number] TORI Infusion Thiamine HCl 200 mg/ Sodium 102 mls @ 204 mls/hr 02/10/25 12:00 02/11/25 00:54 Chloride IV 02/11/25 00:29 Infused Q12H TORI Infusion Methylprednisolone Sodium 66 mls @ 66 mls/hr 02/10/25 11:40 02/12/25 10:00 Succinate 1,000 mg/ Sodium IV 02/12/25 09:59 Infused Chloride DAILY TORI Infusion Ketorolac Tromethamine 15 mg 02/09/25 17:14 02/09/25 17:22 Ketorolac Tromethamine 15 Mg/Ml Vial IVPUSH 02/09/25 17:15 15 mg ONCE ONE Administration Lidocaine HCl 10 ml 02/09/25 22:08 02/09/25 23:04 Lidocaine Hcl 1 % 20 Ml Vial INFILTRATI 02/09/25 22:09 10 ml ONCE ONE Administration Lorazepam 1 mg 02/10/25 12:57 02/10/25 19:30 Lorazepam 1 Mg Tablet PO 02/10/25 12:58 1 mg ONCE ONE Administration Lorazepam 1 mg 02/11/25 08:09 02/11/25 11:51 Lorazepam 1 Mg Tablet PO 02/11/25 08:10 1 mg ONCE ONE Administration Melatonin 6 mg 02/10/25 00:17 02/12/25 20:05 Melatonin 3 Mg Tablet PO 6 mg BEDTIME PRN Administration Insomnia Morphine Sulfate 4 mg 02/09/25 20:43 02/09/25 20:49 Morphine Sulfate 4 Mg/Ml Cartridge IVPUSH 02/09/25 20:44 4 mg ONCE ONE Administration Protocol Morphine Sulfate 4 mg 02/09/25 22:08 02/09/25 22:16 Morphine Sulfate 4 Mg/Ml Cartridge IVPUSH 02/09/25 22:09 4 mg ONCE ONE Administration Protocol Multivitamins/Vitamin C 1 tab 02/10/25 11:40 02/13/25 06:42 Multivitamin Tablet PO 02/13/25 11:39 1 tab DAILY [facility] Administration Oxycodone HCl 5 mg 02/10/25 00:17 02/13/25 04:41 Oxycodone Hcl Immed Release 5 Mg Tablet PO 5 mg Q6H PRN Administration Pain, Moderate(Pain Scale 4-6) Oxycodone HCl 10 mg 02/13/25 07:45 02/13/25 12:00 Oxycodone Hcl Immed Release 5 Mg Tablet PO 10 mg Q6H PRN Administration Pain, Moderate(Pain Scale 4-6) Sodium Chloride 3 ml 02/10/25 08:00 02/13/25 06:42 0.9 % Sodium Chloride Flush 3 Ml Syringe IVFLUSH Not Given QSHIFT TORI Thiamine HCl 100 mg 02/11/25 09:00 02/13/25 06:42 Thiamine Hcl 100 Mg Tablet PO 100 mg DAILY TORI Administration Procedures Lumbar Puncture Time Out Performed: Yes Patient Position: right lateral decubitus Skin Prep: Povidone-Iodine 1% Local Anesthetic: lidocaine 1% Amount of anesthesia used (mL): 8 Spinal Needle Gauge: 20G Interspace Used: L3-L4 Opening Pressure (cmH20): 10 Fluid Initially Obtained: clear Additional Comments: Procedure performed by me, Rasta Olmstead. Indication, diffuse weakness concerning for possible myelopathy or demyelination condition. Procedure discussed with the patient who consented to the procedure. A time-out was done. Sterile technique was maintained throughout. I initially attempted the procedure at the L4-L5 level with the patient in the right lateral decubitus position. I was unsuccessful at this level despite multiple passes. I then used a 2nd kit to attempt the procedure at the L3-4 level. After multiple additional passes I finally was able to obtain clear spinal fluid. The patient tolerated my attempts at this procedure well and there were no immediate complications. Medical Decision Making Medical Decision Making MDM Narrative: Patient is a 54-year-old male with history of alcohol use disorder, alcohol withdrawal, depression presenting to the emergency department after a fall at home around midnight. On exam patient is awake, A+Ox3, VS WNL, afebrile, normal neurological exam without focal deficits, physical exam findings as above. Given reported symptoms and physical exam findings, initial differential includes but is not limited to ICH, skull or cervical vertebral fracture subluxation, drug or alcohol intoxication, electrolyte abnormality, dehydration. Labs notable for leukocytosis, elevated CK. CT head and C-spine notable for no evidence of ICH, skull or cervical vertebral fracture subluxation. My interpretation is in agreement with the radiologist's interpretation. Will give 2 L IV fluids and recheck CK, will also obtain UA and viral swabs. Do not suspect acute stroke as patient states symptoms have been ongoing for months. UA is without evidence of infection. Urine drug screen positive for benzodiazepines, oxycodone, opiates. Patient is prescribed Klonopin 0.5 mg b.i.d., however, has not been prescribed oxycodone since December and that was only for 8 tablets. Mild improvement in CK a after 2 L of fluids. Patient continues with profound weakness, was attempted to stand at bedside to use urinal with RN and was unable to do this. Case discussed with my attending, Dr. Currie who recommended adding thiamine and B12 levels, ammonia, magnesium. He feels patient likely requires MRI for evaluation of weakness. Case discussed with Dr. Branham, hospitalist, for possible admission. Lab Data 02/12/25 08:19 02/12/25 08:19 Labs: Lab Results 02/09/25 02/09/25 02/09/25 Range/Units 08:40 08:40 08:40 WBC 17.8 H (4.8-10.8) X10*3/uL RBC 5.70 D (4.60-5.80) X10*6/uL Hgb 15.9 D (14.0-18.0) g/dl Hct 47.3 (42.0-52.0) % MCV 83.0 (80.0-98.0) fL MCH 27.9 (27.0-33.0) pg MCHC 33.6 (31.0-36.0) g/dl RDW 14.6 (11.0-16.0) % Plt Count 188 D (160-400) X10*3/uL MPV 10.9 (9.4-12.4) fL Immature Gran % (Auto) 0.5 H (0.0-0.4) % Neut % (Auto) 81.2 H (45-73) % Lymph % (Auto) 9.6 L (20-40) % [place] % (Auto) 7.8 (2-11) % Eos % (Auto) 0.3 (0-4) % Baso % (Auto) 0.6 (0-2) % Lymph # (Auto) 1.7 (1.2-4.9) X10*3/uL [place] # (Auto) 1.4 H (0.1-1.2) X10*3/uL Eos # (Auto) 0.1 (0.0-0.4) X10*3/uL Baso # (Auto) 0.1 (0.0-0.2) X10*3/uL Abs Immat Gran (auto) 0.09 H (0.00-0.03) X10*3/uL Absolute Neuts (auto) 14.4 H (2.0-8.3) x10*3/uL Absolute Nucleated RBC 0.000 (0.0-0.012) X10*3/uL Nucleated RBC % (auto) 0.0 (0.0-0.2) /100WBC Smear Tech's Comments VERIFIED ESR (0-15) MM/HR Sodium Cancelled 143 Potassium Cancelled 4.5 Chloride Cancelled Carbon Dioxide Anion Gap BUN Creatinine Estim Creat Clear Calc Estimated GFR Random Glucose Calcium Magnesium (1.6-2.6) mg/dL Total Bilirubin AST ALT Alkaline Phosphatase Ammonia (13-55) umol/L Total Creatine Kinase (38-174) U/L C-Reactive Protein (< or = 0.50) mg/dL Total Protein Albumin Vitamin B1 Vitamin B12 (200-900) pg/mL Folate (> or = 4.0) ng/mL TSH (0.32-4.0) uIU/mL Free T4 (0.71-1.85) ng/dL Urine Color Urine Appearance Urine pH (5.0-9.0) Ur Specific [place] (1.005-1.025) Urine Protein (Neg-Trace) mg/dL Urine Glucose (UA) (Negative) mg/dL Urine Ketones (Negative) mg/dL Urine Blood (Negative) Urine Nitrite (Negative) Ur Leukocyte Esterase (Negative) CSF Tube Number CSF Volume ML CSF Appearance CSF Color CSF WBC MM*3 CSF RBC MM*3 CSF Lymphocytes % CSF Monocytes % % CSF Appearance (b) CSF Glucose mg/dL CSF Total Protein (15-45) mg/dL CSF C.neoform/gat PCR (Not Detect.) CSF CMV DNA (PCR) (Not Detect.) CSF Enterovirus (PCR) (Not Detect.) CSF E. coli K1 (PCR) (Not Detect.) CSF H. influenzae (PCR) (Not Detect.) CSF HSV I (PCR) (Not Detect.) CSF HSV II (PCR) (Not Detect.) CSF HHV 6 (PCR) (Not Detect.) CSF L.monocytogenes PCR (Not Detect.) CSF N. meningitidis PCR (Not Detect.) CSF Parechovirus (PCR) (Not Detect.) CSF S. agalactiae (PCR) (Not Detect.) CSF S. pneumoniae (PCR) (Not Detect.) CSF VZV (PCR) (Not Detect.) Urine Opiates Screen (Not Detect) Ur Buprenorphine Scrn (Not Detect) ng/mL Ur Oxycodone Screen (Not Detect) ng/mL Urine Methadone Screen (Not Detect) ng/mL Urine Fentanyl Screen (Not Detect) Ur Barbiturates Screen (Not Detect) Ur Phencyclidine Scrn (Not Detect) Ur Amphetamines Screen (Not Detect) U Benzodiazepines Scrn (Not Detect) Urine Cocaine Screen (Not Detect) U Marijuana (THC) Screen (Not Detect) Ethyl Alcohol T.pallidum Ab (EIA) (Nonreactive) Lyme Screen IgG & IgM Lyme Progressive Test COVID-19 (DANIELA) (Negative) COVID-19 Clin Com Influenza Type A (RYAN) (Negative) Influenza Type B (RYAN) (Negative) Influenza A & B Note 02/09/25 02/09/25 02/09/25 Range/Units 08:40 08:40 08:40 WBC (4.8-10.8) X10*3/uL RBC (4.60-5.80) X10*6/uL Hgb (14.0-18.0) g/dl Hct (42.0-52.0) % MCV (80.0-98.0) fL MCH (27.0-33.0) pg MCHC (31.0-36.0) g/dl RDW (11.0-16.0) % Plt Count (160-400) X10*3/uL MPV (9.4-12.4) fL Immature Gran % (Auto) (0.0-0.4) % Neut % (Auto) (45-73) % Lymph % (Auto) (20-40) % [place] % (Auto) (2-11) % Eos % (Auto) (0-4) % Baso % (Auto) (0-2) % Lymph # (Auto) (1.2-4.9) X10*3/uL [place] # (Auto) (0.1-1.2) X10*3/uL Eos # (Auto) (0.0-0.4) X10*3/uL Baso # (Auto) (0.0-0.2) X10*3/uL Abs Immat Gran (auto) (0.00-0.03) X10*3/uL Absolute Neuts (auto) (2.0-8.3) x10*3/uL Absolute Nucleated RBC (0.0-0.012) X10*3/uL Nucleated RBC % (auto) (0.0-0.2) /100WBC Smear Tech's Comments ESR (0-15) MM/HR Sodium Potassium Chloride 106 Carbon Dioxide Cancelled 25 Anion Gap Cancelled 17 BUN Cancelled Creatinine Estim Creat Clear Calc Estimated GFR Random Glucose Calcium Magnesium (1.6-2.6) mg/dL Total Bilirubin AST ALT Alkaline Phosphatase Ammonia (13-55) umol/L Total Creatine Kinase (38-174) U/L C-Reactive Protein (< or = 0.50) mg/dL Total Protein Albumin Vitamin B1 Vitamin B12 (200-900) pg/mL Folate (> or = 4.0) ng/mL TSH (0.32-4.0) uIU/mL Free T4 (0.71-1.85) ng/dL Urine Color Urine Appearance Urine pH (5.0-9.0) Ur Specific [place] (1.005-1.025) Urine Protein (Neg-Trace) mg/dL Urine Glucose (UA) (Negative) mg/dL Urine Ketones (Negative) mg/dL Urine Blood (Negative) Urine Nitrite (Negative) Ur Leukocyte Esterase (Negative) CSF Tube Number CSF Volume ML CSF Appearance CSF Color CSF WBC MM*3 CSF RBC MM*3 CSF Lymphocytes % CSF Monocytes % % CSF Appearance (b) CSF Glucose mg/dL CSF Total Protein (15-45) mg/dL CSF C.neoform/gat PCR (Not Detect.) CSF CMV DNA (PCR) (Not Detect.) CSF Enterovirus (PCR) (Not Detect.) CSF E. coli K1 (PCR) (Not Detect.) CSF H. influenzae (PCR) (Not Detect.) CSF HSV I (PCR) (Not Detect.) CSF HSV II (PCR) (Not Detect.) CSF HHV 6 (PCR) (Not Detect.) CSF L.monocytogenes PCR (Not Detect.) CSF N. meningitidis PCR (Not Detect.) CSF Parechovirus (PCR) (Not Detect.) CSF S. agalactiae (PCR) (Not Detect.) CSF S. pneumoniae (PCR) (Not Detect.) CSF VZV (PCR) (Not Detect.) Urine Opiates Screen (Not Detect) Ur Buprenorphine Scrn (Not Detect) ng/mL Ur Oxycodone Screen (Not Detect) ng/mL Urine Methadone Screen (Not Detect) ng/mL Urine Fentanyl Screen (Not Detect) Ur Barbiturates Screen (Not Detect) Ur Phencyclidine Scrn (Not Detect) Ur Amphetamines Screen (Not Detect) U Benzodiazepines Scrn (Not Detect) Urine Cocaine Screen (Not Detect) U Marijuana (THC) Screen (Not Detect) Ethyl Alcohol T.pallidum Ab (EIA) (Nonreactive) Lyme Screen IgG & IgM Lyme Progressive Test COVID-19 (DANIELA) (Negative) COVID-19 Clin Com Influenza Type A (RYAN) (Negative) Influenza Type B (RYAN) (Negative) Influenza A & B Note 02/09/25 02/09/25 02/09/25 Range/Units 08:40 08:40 08:40 WBC (4.8-10.8) X10*3/uL RBC (4.60-5.80) X10*6/uL Hgb (14.0-18.0) g/dl Hct (42.0-52.0) % MCV (80.0-98.0) fL MCH (27.0-33.0) pg MCHC (31.0-36.0) g/dl RDW (11.0-16.0) % Plt Count (160-400) X10*3/uL MPV (9.4-12.4) fL Immature Gran % (Auto) (0.0-0.4) % Neut % (Auto) (45-73) % Lymph % (Auto) (20-40) % [place] % (Auto) (2-11) % Eos % (Auto) (0-4) % Baso % (Auto) (0-2) % Lymph # (Auto) (1.2-4.9) X10*3/uL [place] # (Auto) (0.1-1.2) X10*3/uL Eos # (Auto) (0.0-0.4) X10*3/uL Baso # (Auto) (0.0-0.2) X10*3/uL Abs Immat Gran (auto) (0.00-0.03) X10*3/uL Absolute Neuts (auto) (2.0-8.3) x10*3/uL Absolute Nucleated RBC (0.0-0.012) X10*3/uL Nucleated RBC % (auto) (0.0-0.2) /100WBC Smear Tech's Comments ESR (0-15) MM/HR Sodium Potassium Chloride Carbon Dioxide Anion Gap BUN 15 Creatinine Cancelled 1.36 Estim Creat Clear Calc Cancelled 61.9 Estimated GFR Cancelled Random Glucose Calcium Magnesium (1.6-2.6) mg/dL Total Bilirubin AST ALT Alkaline Phosphatase Ammonia (13-55) umol/L Total Creatine Kinase (38-174) U/L C-Reactive Protein (< or = 0.50) mg/dL Total Protein Albumin Vitamin B1 Vitamin B12 (200-900) pg/mL Folate (> or = 4.0) ng/mL TSH (0.32-4.0) uIU/mL Free T4 (0.71-1.85) ng/dL Urine Color Urine Appearance Urine pH (5.0-9.0) Ur Specific [place] (1.005-1.025) Urine Protein (Neg-Trace) mg/dL Urine Glucose (UA) (Negative) mg/dL Urine Ketones (Negative) mg/dL Urine Blood (Negative) Urine Nitrite (Negative) Ur Leukocyte Esterase (Negative) CSF Tube Number CSF Volume ML CSF Appearance CSF Color CSF WBC MM*3 CSF RBC MM*3 CSF Lymphocytes % CSF Monocytes % % CSF Appearance (b) CSF Glucose mg/dL CSF Total Protein (15-45) mg/dL CSF C.neoform/gat PCR (Not Detect.) CSF CMV DNA (PCR) (Not Detect.) CSF Enterovirus (PCR) (Not Detect.) CSF E. coli K1 (PCR) (Not Detect.) CSF H. influenzae (PCR) (Not Detect.) CSF HSV I (PCR) (Not Detect.) CSF HSV II (PCR) (Not Detect.) CSF HHV 6 (PCR) (Not Detect.) CSF L.monocytogenes PCR (Not Detect.) CSF N. meningitidis PCR (Not Detect.) CSF Parechovirus (PCR) (Not Detect.) CSF S. agalactiae (PCR) (Not Detect.) CSF S. pneumoniae (PCR) (Not Detect.) CSF VZV (PCR) (Not Detect.) Urine Opiates Screen (Not Detect) Ur Buprenorphine Scrn (Not Detect) ng/mL Ur Oxycodone Screen (Not Detect) ng/mL Urine Methadone Screen (Not Detect) ng/mL Urine Fentanyl Screen (Not Detect) Ur Barbiturates Screen (Not Detect) Ur Phencyclidine Scrn (Not Detect) Ur Amphetamines Screen (Not Detect) U Benzodiazepines Scrn (Not Detect) Urine Cocaine Screen (Not Detect) U Marijuana (THC) Screen (Not Detect) Ethyl Alcohol T.pallidum Ab (EIA) (Nonreactive) Lyme Screen IgG & IgM Lyme Progressive Test COVID-19 (DANIELA) (Negative) COVID-19 Clin Com Influenza Type A (RYAN) (Negative) Influenza Type B (RYAN) (Negative) Influenza A & B Note 02/09/25 02/09/25 02/09/25 Range/Units 08:40 08:40 08:40 WBC (4.8-10.8) X10*3/uL RBC (4.60-5.80) X10*6/uL Hgb (14.0-18.0) g/dl Hct (42.0-52.0) % MCV (80.0-98.0) fL MCH (27.0-33.0) pg MCHC (31.0-36.0) g/dl RDW (11.0-16.0) % Plt Count (160-400) X10*3/uL MPV (9.4-12.4) fL Immature Gran % (Auto) (0.0-0.4) % Neut % (Auto) (45-73) % Lymph % (Auto) (20-40) % [place] % (Auto) (2-11) % Eos % (Auto) (0-4) % Baso % (Auto) (0-2) % Lymph # (Auto) (1.2-4.9) X10*3/uL [place] # (Auto) (0.1-1.2) X10*3/uL Eos # (Auto) (0.0-0.4) X10*3/uL Baso # (Auto) (0.0-0.2) X10*3/uL Abs Immat Gran (auto) (0.00-0.03) X10*3/uL Absolute Neuts (auto) (2.0-8.3) x10*3/uL Absolute Nucleated RBC (0.0-0.012) X10*3/uL Nucleated RBC % (auto) (0.0-0.2) /100WBC Smear Tech's Comments ESR (0-15) MM/HR Sodium Potassium Chloride Carbon Dioxide Anion Gap BUN Creatinine Estim Creat Clear Calc Estimated GFR 55 Random Glucose Cancelled 91 Calcium Cancelled 10.0 D Magnesium (1.6-2.6) mg/dL Total Bilirubin Cancelled AST ALT Alkaline Phosphatase Ammonia (13-55) umol/L Total Creatine Kinase (38-174) U/L C-Reactive Protein (< or = 0.50) mg/dL Total Protein Albumin Vitamin B1 Vitamin B12 (200-900) pg/mL Folate (> or = 4.0) ng/mL TSH (0.32-4.0) uIU/mL Free T4 (0.71-1.85) ng/dL Urine Color Urine Appearance Urine pH (5.0-9.0) Ur Specific [place] (1.005-1.025) Urine Protein (Neg-Trace) mg/dL Urine Glucose (UA) (Negative) mg/dL Urine Ketones (Negative) mg/dL Urine Blood (Negative) Urine Nitrite (Negative) Ur Leukocyte Esterase (Negative) CSF Tube Number CSF Volume ML CSF Appearance CSF Color CSF WBC MM*3 CSF RBC MM*3 CSF Lymphocytes % CSF Monocytes % % CSF Appearance (b) CSF Glucose mg/dL CSF Total Protein (15-45) mg/dL CSF C.neoform/gat PCR (Not Detect.) CSF CMV DNA (PCR) (Not Detect.) CSF Enterovirus (PCR) (Not Detect.) CSF E. coli K1 (PCR) (Not Detect.) CSF H. influenzae (PCR) (Not Detect.) CSF HSV I (PCR) (Not Detect.) CSF HSV II (PCR) (Not Detect.) CSF HHV 6 (PCR) (Not Detect.) CSF L.monocytogenes PCR (Not Detect.) CSF N. meningitidis PCR (Not Detect.) CSF Parechovirus (PCR) (Not Detect.) CSF S. agalactiae (PCR) (Not Detect.) CSF S. pneumoniae (PCR) (Not Detect.) CSF VZV (PCR) (Not Detect.) Urine Opiates Screen (Not Detect) Ur Buprenorphine Scrn (Not Detect) ng/mL Ur Oxycodone Screen (Not Detect) ng/mL Urine Methadone Screen (Not Detect) ng/mL Urine Fentanyl Screen (Not Detect) Ur Barbiturates Screen (Not Detect) Ur Phencyclidine Scrn (Not Detect) Ur Amphetamines Screen (Not Detect) U Benzodiazepines Scrn (Not Detect) Urine Cocaine Screen (Not Detect) U Marijuana (THC) Screen (Not Detect) Ethyl Alcohol T.pallidum Ab (EIA) (Nonreactive) Lyme Screen IgG & IgM Lyme Progressive Test COVID-19 (DANIELA) (Negative) COVID-19 Clin Com Influenza Type A (RYAN) (Negative) Influenza Type B (RYAN) (Negative) Influenza A & B Note 02/09/25 02/09/25 02/09/25 Range/Units 08:40 08:40 08:40 WBC (4.8-10.8) X10*3/uL RBC (4.60-5.80) X10*6/uL Hgb (14.0-18.0) g/dl Hct (42.0-52.0) % MCV (80.0-98.0) fL MCH (27.0-33.0) pg MCHC (31.0-36.0) g/dl RDW (11.0-16.0) % Plt Count (160-400) X10*3/uL MPV (9.4-12.4) fL Immature Gran % (Auto) (0.0-0.4) % Neut % (Auto) (45-73) % Lymph % (Auto) (20-40) % [place] % (Auto) (2-11) % Eos % (Auto) (0-4) % Baso % (Auto) (0-2) % Lymph # (Auto) (1.2-4.9) X10*3/uL [place] # (Auto) (0.1-1.2) X10*3/uL Eos # (Auto) (0.0-0.4) X10*3/uL Baso # (Auto) (0.0-0.2) X10*3/uL Abs Immat Gran (auto) (0.00-0.03) X10*3/uL Absolute Neuts (auto) (2.0-8.3) x10*3/uL Absolute Nucleated RBC (0.0-0.012) X10*3/uL Nucleated RBC % (auto) (0.0-0.2) /100WBC Smear Tech's Comments ESR (0-15) MM/HR Sodium Potassium Chloride Carbon Dioxide Anion Gap BUN Creatinine Estim Creat Clear Calc Estimated GFR Random Glucose Calcium Magnesium (1.6-2.6) mg/dL Total Bilirubin 0.9 AST Cancelled 77 H ALT Cancelled 38 Alkaline Phosphatase Cancelled Ammonia (13-55) umol/L Total Creatine Kinase (38-174) U/L C-Reactive Protein (< or = 0.50) mg/dL Total Protein Albumin Vitamin B1 Vitamin B12 (200-900) pg/mL Folate (> or = 4.0) ng/mL TSH (0.32-4.0) uIU/mL Free T4 (0.71-1.85) ng/dL Urine Color Urine Appearance Urine pH (5.0-9.0) Ur Specific [place] (1.005-1.025) Urine Protein (Neg-Trace) mg/dL Urine Glucose (UA) (Negative) mg/dL Urine Ketones (Negative) mg/dL Urine Blood (Negative) Urine Nitrite (Negative) Ur Leukocyte Esterase (Negative) CSF Tube Number CSF Volume ML CSF Appearance CSF Color CSF WBC MM*3 CSF RBC MM*3 CSF Lymphocytes % CSF Monocytes % % CSF Appearance (b) CSF Glucose mg/dL CSF Total Protein (15-45) mg/dL CSF C.neoform/gat PCR (Not Detect.) CSF CMV DNA (PCR) (Not Detect.) CSF Enterovirus (PCR) (Not Detect.) CSF E. coli K1 (PCR) (Not Detect.) CSF H. influenzae (PCR) (Not Detect.) CSF HSV I (PCR) (Not Detect.) CSF HSV II (PCR) (Not Detect.) CSF HHV 6 (PCR) (Not Detect.) CSF L.monocytogenes PCR (Not Detect.) CSF N. meningitidis PCR (Not Detect.) CSF Parechovirus (PCR) (Not Detect.) CSF S. agalactiae (PCR) (Not Detect.) CSF S. pneumoniae (PCR) (Not Detect.) CSF VZV (PCR) (Not Detect.) Urine Opiates Screen (Not Detect) Ur Buprenorphine Scrn (Not Detect) ng/mL Ur Oxycodone Screen (Not Detect) ng/mL Urine Methadone Screen (Not Detect) ng/mL Urine Fentanyl Screen (Not Detect) Ur Barbiturates Screen (Not Detect) Ur Phencyclidine Scrn (Not Detect) Ur Amphetamines Screen (Not Detect) U Benzodiazepines Scrn (Not Detect) Urine Cocaine Screen (Not Detect) U Marijuana (THC) Screen (Not Detect) Ethyl Alcohol T.pallidum Ab (EIA) (Nonreactive) Lyme Screen IgG & IgM Lyme Progressive Test COVID-19 (DANIELA) (Negative) COVID-19 Clin Com Influenza Type A (RYAN) (Negative) Influenza Type B (RYAN) (Negative) Influenza A & B Note 02/09/25 02/09/25 02/09/25 Range/Units 08:40 08:40 08:40 WBC (4.8-10.8) X10*3/uL RBC (4.60-5.80) X10*6/uL Hgb (14.0-18.0) g/dl Hct (42.0-52.0) % MCV (80.0-98.0) fL MCH (27.0-33.0) pg MCHC (31.0-36.0) g/dl RDW (11.0-16.0) % Plt Count (160-400) X10*3/uL MPV (9.4-12.4) fL Immature Gran % (Auto) (0.0-0.4) % Neut % (Auto) (45-73) % Lymph % (Auto) (20-40) % [place] % (Auto) (2-11) % Eos % (Auto) (0-4) % Baso % (Auto) (0-2) % Lymph # (Auto) (1.2-4.9) X10*3/uL [place] # (Auto) (0.1-1.2) X10*3/uL Eos # (Auto) (0.0-0.4) X10*3/uL Baso # (Auto) (0.0-0.2) X10*3/uL Abs Immat Gran (auto) (0.00-0.03) X10*3/uL Absolute Neuts (auto) (2.0-8.3) x10*3/uL Absolute Nucleated RBC (0.0-0.012) X10*3/uL Nucleated RBC % (auto) (0.0-0.2) /100WBC Smear Tech's Comments ESR (0-15) MM/HR Sodium Potassium Chloride Carbon Dioxide Anion Gap BUN Creatinine Estim Creat Clear Calc Estimated GFR Random Glucose Calcium Magnesium (1.6-2.6) mg/dL Total Bilirubin AST ALT Alkaline Phosphatase 91 Ammonia (13-55) umol/L Total Creatine Kinase 1363 H (38-174) U/L C-Reactive Protein (< or = 0.50) mg/dL Total Protein Cancelled 7.9 Albumin Cancelled 4.7 Vitamin B1 Vitamin B12 (200-900) pg/mL Folate (> or = 4.0) ng/mL TSH 0.04 L (0.32-4.0) uIU/mL Free T4 1.13 (0.71-1.85) ng/dL Urine Color Urine Appearance Urine pH (5.0-9.0) Ur Specific [place] (1.005-1.025) Urine Protein (Neg-Trace) mg/dL Urine Glucose (UA) (Negative) mg/dL Urine Ketones (Negative) mg/dL Urine Blood (Negative) Urine Nitrite (Negative) Ur Leukocyte Esterase (Negative) CSF Tube Number CSF Volume ML CSF Appearance CSF Color CSF WBC MM*3 CSF RBC MM*3 CSF Lymphocytes % CSF Monocytes % % CSF Appearance (b) CSF Glucose mg/dL CSF Total Protein (15-45) mg/dL CSF C.neoform/gat PCR (Not Detect.) CSF CMV DNA (PCR) (Not Detect.) CSF Enterovirus (PCR) (Not Detect.) CSF E. coli K1 (PCR) (Not Detect.) CSF H. influenzae (PCR) (Not Detect.) CSF HSV I (PCR) (Not Detect.) CSF HSV II (PCR) (Not Detect.) CSF HHV 6 (PCR) (Not Detect.) CSF L.monocytogenes PCR (Not Detect.) CSF N. meningitidis PCR (Not Detect.) CSF Parechovirus (PCR) (Not Detect.) CSF S. agalactiae (PCR) (Not Detect.) CSF S. pneumoniae (PCR) (Not Detect.) CSF VZV (PCR) (Not Detect.) Urine Opiates Screen (Not Detect) Ur Buprenorphine Scrn (Not Detect) ng/mL Ur Oxycodone Screen (Not Detect) ng/mL Urine Methadone Screen (Not Detect) ng/mL Urine Fentanyl Screen (Not Detect) Ur Barbiturates Screen (Not Detect) Ur Phencyclidine Scrn (Not Detect) Ur Amphetamines Screen (Not Detect) U Benzodiazepines Scrn (Not Detect) Urine Cocaine Screen (Not Detect) U Marijuana (THC) Screen (Not Detect) Ethyl Alcohol Cancelled T.pallidum Ab (EIA) (Nonreactive) Lyme Screen IgG & IgM Lyme Progressive Test COVID-19 (DANIELA) (Negative) COVID-19 Clin Com Influenza Type A (RYAN) (Negative) Influenza Type B (RYAN) (Negative) Influenza A & B Note 02/09/25 02/09/25 02/09/25 Range/Units 08:40 12:40 13:53 WBC (4.8-10.8) X10*3/uL RBC (4.60-5.80) X10*6/uL Hgb (14.0-18.0) g/dl Hct (42.0-52.0) % MCV (80.0-98.0) fL MCH (27.0-33.0) pg MCHC (31.0-36.0) g/dl RDW (11.0-16.0) % Plt Count (160-400) X10*3/uL MPV (9.4-12.4) fL Immature Gran % (Auto) (0.0-0.4) % Neut % (Auto) (45-73) % Lymph % (Auto) (20-40) % [place] % (Auto) (2-11) % Eos % (Auto) (0-4) % Baso % (Auto) (0-2) % Lymph # (Auto) (1.2-4.9) X10*3/uL [place] # (Auto) (0.1-1.2) X10*3/uL Eos # (Auto) (0.0-0.4) X10*3/uL Baso # (Auto) (0.0-0.2) X10*3/uL Abs Immat Gran (auto) (0.00-0.03) X10*3/uL Absolute Neuts (auto) (2.0-8.3) x10*3/uL Absolute Nucleated RBC (0.0-0.012) X10*3/uL Nucleated RBC % (auto) (0.0-0.2) /100WBC Smear Tech's Comments ESR (0-15) MM/HR Sodium Potassium Chloride Carbon Dioxide Anion Gap BUN Creatinine Estim Creat Clear Calc Estimated GFR Random Glucose Calcium Magnesium (1.6-2.6) mg/dL Total Bilirubin AST ALT Alkaline Phosphatase Ammonia (13-55) umol/L Total Creatine Kinase 1055 H (38-174) U/L C-Reactive Protein (< or = 0.50) mg/dL Total Protein Albumin Vitamin B1 Vitamin B12 (200-900) pg/mL Folate (> or = 4.0) ng/mL TSH (0.32-4.0) uIU/mL Free T4 (0.71-1.85) ng/dL Urine Color Yellow Urine Appearance Clear Urine pH 7.5 (5.0-9.0) Ur Specific [place] 1.010 (1.005-1.025) Urine Protein Negative (Neg-Trace) mg/dL Urine Glucose (UA) 100 H (Negative) mg/dL Urine Ketones Negative (Negative) mg/dL Urine Blood Negative (Negative) Urine Nitrite Negative (Negative) Ur Leukocyte Esterase Negative (Negative) CSF Tube Number CSF Volume ML CSF Appearance CSF Color CSF WBC MM*3 CSF RBC MM*3 CSF Lymphocytes % CSF Monocytes % % CSF Appearance (b) CSF Glucose mg/dL CSF Total Protein (15-45) mg/dL CSF C.neoform/gat PCR (Not Detect.) CSF CMV DNA (PCR) (Not Detect.) CSF Enterovirus (PCR) (Not Detect.) CSF E. coli K1 (PCR) (Not Detect.) CSF H. influenzae (PCR) (Not Detect.) CSF HSV I (PCR) (Not Detect.) CSF HSV II (PCR) (Not Detect.) CSF HHV 6 (PCR) (Not Detect.) CSF L.monocytogenes PCR (Not Detect.) CSF N. meningitidis PCR (Not Detect.) CSF Parechovirus (PCR) (Not Detect.) CSF S. agalactiae (PCR) (Not Detect.) CSF S. pneumoniae (PCR) (Not Detect.) CSF VZV (PCR) (Not Detect.) Urine Opiates Screen POSITIVE H (Not Detect) Ur Buprenorphine Scrn Not Detected (Not Detect) ng/mL Ur Oxycodone Screen Positive H (Not Detect) ng/mL Urine Methadone Screen Not Detected (Not Detect) ng/mL Urine Fentanyl Screen Not Detected (Not Detect) Ur Barbiturates Screen Not Detected (Not Detect) Ur Phencyclidine Scrn Not Detected (Not Detect) Ur Amphetamines Screen Not Detected (Not Detect) U Benzodiazepines Scrn POSITIVE H (Not Detect) Urine Cocaine Screen Not Detected (Not Detect) U Marijuana (THC) Screen Not Detected (Not Detect) Ethyl Alcohol < 10 T.pallidum Ab (EIA) (Nonreactive) Lyme Screen IgG & IgM Lyme Progressive Test COVID-19 (DANIELA) Negative (Negative) COVID-19 Clin Com See Note Influenza Type A (RYAN) Negative (Negative) Influenza Type B (RYAN) Negative (Negative) Influenza A & B Note See Note 02/09/25 02/09/25 02/09/25 Range/Units 16:08 20:54 21:49 WBC (4.8-10.8) X10*3/uL RBC (4.60-5.80) X10*6/uL Hgb (14.0-18.0) g/dl Hct (42.0-52.0) % MCV (80.0-98.0) fL MCH (27.0-33.0) pg MCHC (31.0-36.0) g/dl RDW (11.0-16.0) % Plt Count (160-400) X10*3/uL MPV (9.4-12.4) fL Immature Gran % (Auto) (0.0-0.4) % Neut % (Auto) (45-73) % Lymph % (Auto) (20-40) % [place] % (Auto) (2-11) % Eos % (Auto) (0-4) % Baso % (Auto) (0-2) % Lymph # (Auto) (1.2-4.9) X10*3/uL [place] # (Auto) (0.1-1.2) X10*3/uL Eos # (Auto) (0.0-0.4) X10*3/uL Baso # (Auto) (0.0-0.2) X10*3/uL Abs Immat Gran (auto) (0.00-0.03) X10*3/uL Absolute Neuts (auto) (2.0-8.3) x10*3/uL Absolute Nucleated RBC (0.0-0.012) X10*3/uL Nucleated RBC % (auto) (0.0-0.2) /100WBC Smear Tech's Comments ESR 2 (0-15) MM/HR Sodium Potassium Chloride Carbon Dioxide Anion Gap BUN Creatinine Estim Creat Clear Calc Estimated GFR Random Glucose Calcium Magnesium 2.4 (1.6-2.6) mg/dL Total Bilirubin AST ALT Alkaline Phosphatase Ammonia 33 (13-55) umol/L Total Creatine Kinase (38-174) U/L C-Reactive Protein 5.25 H (< or = 0.50) mg/dL Total Protein Albumin Vitamin B1 Cancelled Vitamin B12 1078 H (200-900) pg/mL Folate 11.3 (> or = 4.0) ng/mL TSH (0.32-4.0) uIU/mL Free T4 (0.71-1.85) ng/dL Urine Color Urine Appearance Urine pH (5.0-9.0) Ur Specific [place] (1.005-1.025) Urine Protein (Neg-Trace) mg/dL Urine Glucose (UA) (Negative) mg/dL Urine Ketones (Negative) mg/dL Urine Blood (Negative) Urine Nitrite (Negative) Ur Leukocyte Esterase (Negative) CSF Tube Number CSF Volume ML CSF Appearance CSF Color CSF WBC MM*3 CSF RBC MM*3 CSF Lymphocytes % CSF Monocytes % % CSF Appearance (b) CSF Glucose mg/dL CSF Total Protein (15-45) mg/dL CSF C.neoform/gat PCR (Not Detect.) CSF CMV DNA (PCR) (Not Detect.) CSF Enterovirus (PCR) (Not Detect.) CSF E. coli K1 (PCR) (Not Detect.) CSF H. influenzae (PCR) (Not Detect.) CSF HSV I (PCR) (Not Detect.) CSF HSV II (PCR) (Not Detect.) CSF HHV 6 (PCR) (Not Detect.) CSF L.monocytogenes PCR (Not Detect.) CSF N. meningitidis PCR (Not Detect.) CSF Parechovirus (PCR) (Not Detect.) CSF S. agalactiae (PCR) (Not Detect.) CSF S. pneumoniae (PCR) (Not Detect.) CSF VZV (PCR) (Not Detect.) Urine Opiates Screen (Not Detect) Ur Buprenorphine Scrn (Not Detect) ng/mL Ur Oxycodone Screen (Not Detect) ng/mL Urine Methadone Screen (Not Detect) ng/mL Urine Fentanyl Screen (Not Detect) Ur Barbiturates Screen (Not Detect) Ur Phencyclidine Scrn (Not Detect) Ur Amphetamines Screen (Not Detect) U Benzodiazepines Scrn (Not Detect) Urine Cocaine Screen (Not Detect) U Marijuana (THC) Screen (Not Detect) Ethyl Alcohol T.pallidum Ab (EIA) Nonreactive (Nonreactive) Lyme Screen IgG & IgM Cancelled Lyme Progressive Test Cancelled COVID-19 (DANIELA) (Negative) COVID-19 Clin Com Influenza Type A (RYAN) (Negative) Influenza Type B (RYAN) (Negative) Influenza A & B Note 02/09/25 02/09/25 Range/Units 22:56 22:56 WBC (4.8-10.8) X10*3/uL RBC (4.60-5.80) X10*6/uL Hgb (14.0-18.0) g/dl Hct (42.0-52.0) % MCV (80.0-98.0) fL MCH (27.0-33.0) pg MCHC (31.0-36.0) g/dl RDW (11.0-16.0) % Plt Count (160-400) X10*3/uL MPV (9.4-12.4) fL Immature Gran % (Auto) (0.0-0.4) % Neut % (Auto) (45-73) % Lymph % (Auto) (20-40) % [place] % (Auto) (2-11) % Eos % (Auto) (0-4) % Baso % (Auto) (0-2) % Lymph # (Auto) (1.2-4.9) X10*3/uL [place] # (Auto) (0.1-1.2) X10*3/uL Eos # (Auto) (0.0-0.4) X10*3/uL Baso # (Auto) (0.0-0.2) X10*3/uL Abs Immat Gran (auto) (0.00-0.03) X10*3/uL Absolute Neuts (auto) (2.0-8.3) x10*3/uL Absolute Nucleated RBC (0.0-0.012) X10*3/uL Nucleated RBC % (auto) (0.0-0.2) /100WBC Smear Tech's Comments ESR (0-15) MM/HR Sodium Potassium Chloride Carbon Dioxide Anion Gap BUN Creatinine Estim Creat Clear Calc Estimated GFR Random Glucose Calcium Magnesium (1.6-2.6) mg/dL Total Bilirubin AST ALT Alkaline Phosphatase Ammonia (13-55) umol/L Total Creatine Kinase (38-174) U/L C-Reactive Protein (< or = 0.50) mg/dL Total Protein Albumin Vitamin B1 Vitamin B12 (200-900) pg/mL Folate (> or = 4.0) ng/mL TSH (0.32-4.0) uIU/mL Free T4 (0.71-1.85) ng/dL Urine Color Urine Appearance Urine pH (5.0-9.0) Ur Specific Herrick (1.005-1.025) Urine Protein (Neg-Trace) mg/dL Urine Glucose (UA) (Negative) mg/dL Urine Ketones (Negative) mg/dL Urine Blood (Negative) Urine Nitrite (Negative) Ur Leukocyte Esterase (Negative) CSF Tube Number 1 4 CSF Volume 2.5 ML CSF Appearance CLEAR CSF Color COLORLESS CSF WBC 2 MM*3 CSF RBC 0 MM*3 CSF Lymphocytes 20 % CSF Monocytes % 80 % CSF Appearance (b) Clear, Colorless CSF Glucose 54 mg/dL CSF Total Protein 94.3 H (15-45) mg/dL CSF C.neoform/gat PCR Not Detected (Not Detect.) CSF CMV DNA (PCR) Not Detected (Not Detect.) CSF Enterovirus (PCR) Not Detected (Not Detect.) CSF E. coli K1 (PCR) Not Detected (Not Detect.) CSF H. influenzae (PCR) Not Detected (Not Detect.) CSF HSV I (PCR) Not Detected (Not Detect.) CSF HSV II (PCR) Not Detected (Not Detect.) CSF HHV 6 (PCR) Not Detected (Not Detect.) CSF L.monocytogenes PCR Not Detected (Not Detect.) CSF N. meningitidis PCR Not Detected (Not Detect.) CSF Parechovirus (PCR) Not Detected (Not Detect.) CSF S. agalactiae (PCR) Not Detected (Not Detect.) CSF S. pneumoniae (PCR) Not Detected (Not Detect.) CSF VZV (PCR) Not Detected (Not Detect.) Urine Opiates Screen (Not Detect) Ur Buprenorphine Scrn (Not Detect) ng/mL Ur Oxycodone Screen (Not Detect) ng/mL Urine Methadone Screen (Not Detect) ng/mL Urine Fentanyl Screen (Not Detect) Ur Barbiturates Screen (Not Detect) Ur Phencyclidine Scrn (Not Detect) Ur Amphetamines Screen (Not Detect) U Benzodiazepines Scrn (Not Detect) Urine Cocaine Screen (Not Detect) U Marijuana (THC) Screen (Not Detect) Ethyl Alcohol T.pallidum Ab (EIA) (Nonreactive) Lyme Screen IgG & IgM Lyme Progressive Test COVID-19 (DANIELA) (Negative) COVID-19 Clin Com Influenza Type A (RYAN) (Negative) Influenza Type B (RYAN) (Negative) Influenza A & B Note Critical Care Time Critical Care Time Critical Care Time: Yes Total Critical Care Time: 60 Attestation: This is a very complicated presentation of both upper and lower extremity weakness. The patient required multiple exams, multiple neurologic evaluations and opiate lumbar puncture require admission due to abnormal elevation of the CSF protein. Discharge Plan Discharge Clinical Impression: Weakness, Elevated CSF protein Patient Disposition: Admitted As Inpatient Interventions: Admission Worksheet (ED) Last Done: 02/10/25 02:07 Discharge Date/Time: 02/10/25 03:09
--- NOTE | 2025-02-09 08:25 | MHC.EDTECH ---
pt was trying to use the urinal and lowered himself to the floor and then was unable to get himself up from the floor, pt has senior attorney socks on and is secured back in bed
--- OUTSIDE RECORDS SUMMARY | 2025-02-09 08:27 | XMS_ITS | Clinical Summary ---
Author Organization [facility] ity Address [address] [place] [address] Care Team Providers Care Department Clinician Name Role Phone Unavailable Primary Care Provider [...] 5 season) 2024 Influenza Vaccine (#1) 2024 RSV Immunization Adult Patie nts (1 - 1-dose 75+ series) 2045 HIB Vaccines Aged Out No longer eligi [...]
--- OUTSIDE RECORDS SUMMARY | 2025-02-09 08:27 | XMS_ITS ---
Author Name [facility] Organization Unknown Encounters Encounter Type Encounter Reason Primary Diagnosis Location Date Ambulatory [facility] [place] 01/23/2025
--- OUTSIDE RECORDS SUMMARY | 2025-02-09 08:27 | XMS_ITS | Patient Health Record ---
Author Organization [facility] Address [address] [place] [address] Care Team Providers Care Tunnel Miner Name Role Phone Jus Overton Primary Care Provider Unavaila Jus Garcia Jr Unavailable Allergies Allergen (clinical drug ingredient) Drug/Non Drug Allergy documented on EMR Reaction Allergy Type Onset Date Status amoxicillin / clavulanate Augmentin vomitting Drug Allergy Active Reason For Referral No Information Medications Medication SIG (Take, Route, Frequency, Duration) Notes Start Date End Date Status Atenolol 100 MG TAKE 1 TABLET BY EVERY DAY Oral; Duration: 90 Active Diphenoxylate-Atropine 2.5-0.025 MG Oral; Duration: 30 Active clonazePAM 0.5 MG Oral; Duration: 22 Active Buprenorphine HCl-Naloxone HCl 8-2 MG Sublingual; Duration: 30 Act noah Lomotil 2.5-0.025 MG 1 tablet as needed Orally Four times a day; Duration: 30 days 01/04/2025 Active Aspir-81 Active MiraLax (colon prep) 17 GM/SCOOP mixed with Gatorade or Crystal Light Orally begin at 5:00 p.m. 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 Encounters Encounter Location Date Provider Diagnosis [facility] [address] [place] [id number] 03/01/2024 Jus Overton Jr Irritable bowel syndrome with diarrhea K58.0 [facility] [address] [phone] 01/02/2025 Jus Overton Jr Irritable bowel syndrome with diarrhea K58.0 Assessments Encounter Date Diagnosis (ICD Code) Assessment Notes Treatment Notes Treatment Clinical Notes Section Notes 03/01/2024 Irritable bowel syndrome with diarrhea (ICD-10 - K58.0) 01/02/2025 Irritable bowel syndrome with diarrhea (ICD-10 - K58.0) Plan Of Treatment Future Test Test Name Order Date COLONOSCOPY 01/23/2017 COLONOSCOPY 04/19/2020 COLONOSCOPY 04/20/2020 COLONOSCOPY 07/08/2023 Next Appt Details Provider Name:Jus quintero Jr, 05/11/2025 03:15:00 PM, [address] [place] [address], [address], [place], [address], Insurance Providers Payer Name Payer Address Payer Phone Subscriber Number Group Number Insured Name Patient Relationship to Insured Coverage Start Date Coverage End Date [facility] [address] [place] [phone] [id number] MIKE JUÁREZ Self - patient is the insured 3 Medical (General) History Medical History History ICD Code colonoscopy 04/26, tubular ad enoma, three-year followup, history of juvenile polyposis kidney disease alcohol abuse bipolar disorder hypertension Covid 19 infection 03/25 Surgical History Surgery Date(Month/Year) colectomy right knee arthroscopy ACL knee surgery
[2025-02-09 08:54] LABS: Hematocrit 47.3 % (42.0-52.0); Hemoglobin 15.9 g/dl (14.0-18.0); Imm Gran Abs Auto 0.09 X10*3/uL (0.00-0.03); Imm Gran Pct Auto 0.5 % (0.0-0.4); Lymphocytes Absolute Auto 1.7 X10*3/uL (1.2-4.9); MANUAL DIFF FLAG SCAN; Mean Corpuscular HGB Conc 33.6 g/dl (31.0-36.0); Mean Corpuscular Hemoglobin 27.9 pg (27.0-33.0); Mean Corpuscular Volume 83.0 fL (80.0-98.0); NRBC Abs Auto 0.000 X10*3/uL (0.0-0.012); NRBC Pct Auto 0.0 /100WBC (0.0-0.2); PLT CLUMP 1; Red Blood Count 5.70 X10*6/uL (4.60-5.80); SCAN SMEAR FLAG 1
[2025-02-09 09:02] LABS: Alanine Aminotransferase 38 U/L (0-40); Albumin Level 4.7 g/dL (3.5-5.0); Alkaline Phosphatase 91 U/L (39-117); Anion Gap 17 (12-20); Aspartate Amino Transferase 77 U/L (5-37); Blood Urea Nitrogen 15 mg/dL (9-16); Calcium 10.0 mg/dL (8.4-10.2); Carbon Dioxide 25 mmol/L (22-29); Chloride 106 mmol/L (96-108); Creatinine Clr Calc Pharmacy 61.9; Estimated Glomerular Filt Rate 55; Potassium 4.5 mmol/L (3.3-5.1); Sodium 143 mmol/L (135-145); Total Protein 7.9 g/dL (6.5-8.0)
[2025-02-09 09:04] LABS: Platelet Count 188 X10*3/uL (160-400); White Blood Count 17.8 X10*3/uL (4.8-10.8)
--- NOTE | 2025-02-09 09:13 | PC.NURSE ---
this RN was notified by Keith Garduno and CESAR rubi that patient had been assisted to stand with urinal and had to be lowered to the ground due to weakness and inability to stand. patient had no headstrike, vss after fall. patient is alert and oriented x4, neuros intact. ED provider, charge nurse and clinical coordinator were notified of situation. this RN did not witness fall due to grabbing medications in the main ED. fall witnessed by MATTHEW Garduno as she was assisting patient. patient educated tat he can not get up again due to his level of weakness due to safety, patient was wearing hospital socks at the time of incident. after leaving patient room this RN heard urinal fall on ground, went in and found patient attempting to leave the bed to urinate in urinal. patient assisted back into bed, given the option of a [place] cath or male purewick for voiding, patient refused, appears patient had already urinated on self. got patient changed and repositioned in bed, urinal given back to patient as this is what he requested. both side rails are up on bed, in lowest locked position.
[2025-02-09 12:54] LABS: Appearance Urine Clear; Glucose Urine UA 100 mg/dL (Negative); PH 7.5 (5.0-9.0); Specific Gravity - Urine 1.010 (1.005-1.025)
[2025-02-09 13:03] LABS: Cannabinoid Screen Urine Not Detected (Not Detect)
[2025-02-09 13:07] LABS: COVID-19 Test Negative (Negative); IDNOW Serial# 6674DD1D
[2025-02-09 13:09] LABS: IDNOW Serial# 08D9AD1C; Influenza B2 Negative (Negative)
[2025-02-09 16:32] LABS: Ammonia 33 umol/L (13-55)
[2025-02-09 16:38] LABS: Magnesium 2.4 mg/dL (1.6-2.6)
[2025-02-09 17:14] LABS: Folate 11.3 ng/mL (> or = 4.0); Vitamin B12 1078 pg/mL (200-900)
--- NOTE | 2025-02-09 20:08 | PC.NURSE ---
Notified, provider Davion,, pt requesting pain medication, awaiting orders. pt back from MRI
[2025-02-09] MEDS: diazePAM 10 MG/2 ML CARTRIDGE IVPUSH (22:19)
[2025-02-09] MEDS: Lidocaine HCl 1 % 20 ML VIAL 10 ML INFILTRATI (23:04)
[2025-02-09 23:21] LABS: Red Blood Cell CSF 0 MM*3; White Blood Cell CSF 2 MM*3
[2025-02-09 23:49] LABS: Lymphocytes CSF 20 %
[2025-02-10] VITALS: BP 168/84; PULSE 54; RESP 16; TEMP 36.9; O2SAT 98
--- NOTE | 2025-02-10 | MHC.EDTECH ---
This tech took over care of pt at 2300, rounds and vitals completed, patient placed on high fall risk precautions, chair alarm on stretcher,belongings list completed,copy placed in chart. call morris in reach
--- NOTE | 2025-02-10 | EMG_ITS ---
Chief complaint: R20.0 Left leg numbness and weakness? Reason for referral: Left leg weakness Referred by:?Dr Womack Procedure done: Left lower extremity NCS/EMG Left peroneal and tibial motor studies were performed with F responses. Tibial H-reflex was obtained. Left superficial peroneal, median and lateral mixed plantars sensory and sural sensory studies were performed an EMG was performed. Findings: Median and lateral mixed plantars studies were absent. Otherwise sensory and motor studies did not reveal any significant abnormality. Specifically distal latencies were not prolonged. F responses were not delayed. H-reflex was absent. Impression: No evidence of demyelinating neuropathy. 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 [place] [address] 1 extremity MTDD
--- NOTE | 2025-02-10 00:25 | P.HPHOSP_ITS ---
History of Present Illness Date of Service: 02/10/25 Attending physician on admission: Sudhir Thompson Chief Complaint: fall, weakness Patient is a 54-year-old male with a past medical history significant for history of alcohol use disorder (last drink in December), depression and hypertension, who presented to the ED after a fall last night at midnight. The patient works untll 11 pm and fell shortly after getting home. he was on the floor for 8 hours before calling EMS, who had to break into his house to get to him. the pt notes that he has had bilateral hand numbness and LE weakness and unsteady gait for 3 months, progressively worsening. 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 he denies any fever, chills, nausea, vomting, chest pain, SOB, photosensitivity. right now he rates his low back pain a 7/10 ache, mostly on the right. he is irritable and provides minimal history. Review of Systems 2 Constitutional: Constitutional: Denies chills, Reports fatigue and Denies fever(s) Eyes: Eyes: Denies change in vision ENT: Denies nasal congestion, Denies nasal discharge and Denies sore throat Cardiovascular: Cardiovascular: Denies chest pain, Denies rapid heart rate, Denies leg edema, Denies lightheadedness and Denies dyspnea Respiratory: Respiratory: Denies chest congestion, Denies cough, Denies dyspnea and Denies wheezing Gastrointestinal: Gastrointestinal: Denies abdominal pain, Denies diarrhea, Denies nausea and Denies vomiting Genitourinary: Genitourinary: Denies dysuria, Denies urinary frequency and Denies urinary urgency Musculoskeletal: Musculoskeletal: Reports as per HPI Integumentary/Breasts: Skin/Breast: Denies rash Neurologic: Denies confusion Psychiatric: Psychiatric: Denies confusion Endocrine: Endocrine: Reports fatigue Hematologic/Lymphatic: Hematologic/Lymphatic: Denies easy bleeding Allergic/Immunologic: Allergic/Immunologic: Denies wheezing [facility] Medical History Alcohol use disorder History of COVID-19 History of ADHD Depression HTN (hypertension) Surgical History H/O colonoscopy Hx of colectomy Hx of left inguinal hernia repair History of repair of ACL Hx of arthroscopy of knee Social History Household Members: Other Household Members Other:: PET Housing: Condominium Do you presently have visiting nurse or other home services: No Alcohol intake: former Patient Tobacco Use Status: Current everyday Tobacco user Tobacco use type: Cigarette Cigarette Packs Per Day: 0.5 Cigarettes Per Day: 10.0 e-Cigarette/Vaping Use: Never Used Second Hand Smoke Exposure: Yes Advance Directives: No Advance Directives Information Provided: Yes service: No Meds Allergies Allergy/AdvReac Type Severity Reaction Status Date / Time amoxicillin (Augmentin) AdvReac Severe Nausea and Verified 02/09/25 08:03 Vomiting clavulanic acid (Augmentin) AdvReac Severe Nausea and Verified 02/09/25 08:03 Vomiting NSAIDS Allergy Intermediate renal Uncoded 02/09/25 08:03 insuff Active Medications: Current Medications Acetaminophen (Acetaminophen 325 Mg Tablet) 975 mg PO Q6H PRN PRN Reason: Pain, Mild 1-3,fever,headache Calcium Carbonate (Calcium Carbonate 750 Mg Tab.Chew) 750 mg PO Q4H PRN PRN Reason: Heartburn Enoxaparin Sodium (Enoxaparin Sodium 40 Mg/0.4 Ml Syringe) 40 mg SUBCUT Q24H TORI Hydromorphone HCl (Hydromorphone Hcl 1 Mg/Ml Syringe) 1 mg IVPUSH Q4H PRN; Protocol PRN Reason: Pain, Severe (Pain Scale 7-10) Magnesium Hydroxide (Milk Of Magnesia 30 Ml Oral.Susp) 30 ml PO DAILY PRN PRN Reason: Constipation Melatonin (Melatonin 3 Mg Tablet) 6 mg PO BEDTIME PRN PRN Reason: Insomnia Ondansetron HCl (Ondansetron Hcl 4 Mg/2 Ml Vial) 4 mg IVPUSH Q8H PRN PRN Reason: Nausea and Vomiting Oxycodone HCl (Oxycodone Hcl Immed Release 5 Mg Tablet) 5 mg PO Q6H PRN PRN Reason: Pain, Moderate(Pain Scale 4-6) Sodium Chloride (0.9 % Sodium Chloride Flush 3 Ml Syringe) 3 ml IVFLUSH QSHIFT TORI Home Medications ?Medication ?Instructions ?Recorded ?Confirmed ?Last Taken ?Type atenolol 100 mg tablet 100 mg PO DAILY 12/05/2404/30 Unknown History bupropion HCl 300 mg 24 hr tablet, 300 mg PO DAILY 04/3012/05/24 Unknown History extended release clonazepam 0.5 mg tablet 0.5 mg PO BID PRN anxiety 12/05/24 Unknown History dextroamphetamine-amphetamine 7.5 1 tab PO BID attenti on deficit 12/05/24 12/05/24 Unknown History mg tablet hyperactivity disorder diphenoxylate-atropine 2.5 1 tab PO QID 12/05/2412/05 Unknown History mg-0.025 mg tablet Physical Exam 2 Vital Signs and Narrative: Vital Signs: Last Vital Signs Temp 98.8 F 02/09/25 21:45 Pulse 45 L 02/09/25 20:18 Resp 20 02/09/25 20:07 BP 142/81 H 02/09/25 20:18 Pulse Ox 97 02/09/25 20:07 O2 Del Method Room Air 02/09/25 20:07 BMI result Body Mass Index 28.7 General: AOx3, no acute distress Resp: CTA bilaterally CVS: S1, S2, RRR GI: +BS, NT, no distention Skin: Warm, dry Neuro: Cranial nerves II-XII grossly intact bilaterally. Motor grossly intact bilaterally. 2-3/5 bilateral upper extremity strength. RLE 2/5 strength with resisted his flexion, 3/5 dorsi and plantar flexion. 3-4/5 LLE strength throughout. Extremities: No pitting edema Psych: Agitated, short responses Const: General: No confusion Orientation/consciousness: No confusion Neuro: General: No confusion Results Labs 02/09/25 08:40 02/09/25 08:40 Labs: Laboratory Results - last 24 hr 02/09/25 02/09/25 02/09/25 08:40 08:40 08:40 MCV 83.0 MCH 27.9 MCHC 33.6 RDW 14.6 Plt Count 188 D MPV 10.9 Immature Gran % (Auto) 0.5 H Neut % (Auto) 81.2 H Lymph % (Auto) 9.6 L [place] % (Auto) 7.8 Eos % (Auto) 0.3 Baso % (Auto) 0.6 Lymph # (Auto) 1.7 [place] # (Auto) 1.4 H Eos # (Auto) 0.1 Baso # (Auto) 0.1 Abs Immat Gran (auto) 0.09 H Absolute Neuts (auto) 14.4 H Absolute Nucleated RBC 0.000 Nucleated RBC % (auto) 0.0 Smear Tech's Comments VERIFIED ESR Anion Gap Cancelled 17 Estim Creat Clear Calc Cancelled 61.9 Estimated GFR Cancelled Random Glucose Calcium Magnesium Total Bilirubin AST ALT Alkaline Phosphatase Ammonia Total Creatine Kinase C-Reactive Protein Total Protein Albumin Vitamin B1 Vitamin B12 Folate Urine Color Urine Appearance Urine pH Ur Specific [place] Urine Protein Urine Glucose (UA) Urine Ketones Urine Blood Urine Nitrite Ur Leukocyte Esterase CSF Tube Number CSF Volume CSF Appearance CSF Color CSF WBC CSF RBC CSF Lymphocytes CSF Monocytes % CSF Appearance (b) CSF Glucose CSF Total Protein Urine Opiates Screen Ur Buprenorphine Scrn Ur Oxycodone Screen Urine Methadone Screen Urine Fentanyl Screen Ur Barbiturates Screen Ur Phencyclidine Scrn Ur Amphetamines Screen U Benzodiazepines Scrn Urine Cocaine Screen U Marijuana (THC) Screen Ethyl Alcohol COVID-19 (DANIELA) COVID-19 Clin Com Influenza Type A (RYAN) Influenza Type B (RYAN) Influenza A & B Note 02/09/25 02/09/25 02/09/25 08:40 08:40 08:40 MCV MCH MCHC RDW Plt Count MPV Immature Gran % (Auto) Neut % (Auto) Lymph % (Auto) [place] % (Auto) Eos % (Auto) Baso % (Auto) Lymph # (Auto) [place] # (Auto) Eos # (Auto) Baso # (Auto) Abs Immat Gran (auto) Absolute Neuts (auto) Absolute Nucleated RBC Nucleated RBC % (auto) Smear Tech's Comments ESR Anion Gap Estim Creat Clear Calc Estimated GFR 55 Random Glucose Cancelled 91 Calcium Cancelled 10.0 D Magnesium Total Bilirubin Cancelled AST ALT Alkaline Phosphatase Ammonia Total Creatine Kinase C-Reactive Protein Total Protein Albumin Vitamin B1 Vitamin B12 Folate Urine Color Urine Appearance Urine pH Ur Specific [place] Urine Protein Urine Glucose (UA) Urine Ketones Urine Blood Urine Nitrite Ur Leukocyte Esterase CSF Tube Number CSF Volume CSF Appearance CSF Color CSF WBC CSF RBC CSF Lymphocytes CSF Monocytes % CSF Appearance (b) CSF Glucose CSF Total Protein Urine Opiates Screen Ur Buprenorphine Scrn Ur Oxycodone Screen Urine Methadone Screen Urine Fentanyl Screen Ur Barbiturates Screen Ur Phencyclidine Scrn Ur Amphetamines Screen U Benzodiazepines Scrn Urine Cocaine Screen U Marijuana (THC) Screen Ethyl Alcohol COVID-19 (DANIELA) COVID-19 Clin Com Influenza Type A (RYAN) Influenza Type B (RYAN) Influenza A & B Note 02/09/25 02/09/25 02/09/25 08:40 08:40 08:40 MCV MCH MCHC RDW Plt Count MPV Immature Gran % (Auto) Neut % (Auto) Lymph % (Auto) [place] % (Auto) Eos % (Auto) Baso % (Auto) Lymph # (Auto) [place] # (Auto) Eos # (Auto) Baso # (Auto) Abs Immat Gran (auto) Absolute Neuts (auto) Absolute Nucleated RBC Nucleated RBC % (auto) Smear Tech's Comments ESR Anion Gap Estim Creat Clear Calc Estimated GFR Random Glucose Calcium Magnesium Total Bilirubin 0.9 AST Cancelled 77 H ALT Cancelled 38 Alkaline Phosphatase Cancelled Ammonia Total Creatine Kinase C-Reactive Protein Total Protein Albumin Vitamin B1 Vitamin B12 Folate Urine Color Urine Appearance Urine pH Ur Specific [place] Urine Protein Urine Glucose (UA) Urine Ketones Urine Blood Urine Nitrite Ur Leukocyte Esterase CSF Tube Number CSF Volume CSF Appearance CSF Color CSF WBC CSF RBC CSF Lymphocytes CSF Monocytes % CSF Appearance (b) CSF Glucose CSF Total Protein Urine Opiates Screen Ur Buprenorphine Scrn Ur Oxycodone Screen Urine Methadone Screen Urine Fentanyl Screen Ur Barbiturates Screen Ur Phencyclidine Scrn Ur Amphetamines Screen U Benzodiazepines Scrn Urine Cocaine Screen U Marijuana (THC) Screen Ethyl Alcohol COVID-19 (DANIELA) COVID-19 Clin Com Influenza Type A (RYAN) Influenza Type B (RYAN) Influenza A & B Note 02/09/25 02/09/25 02/09/25 08:40 08:40 08:40 MCV MCH MCHC RDW Plt Count MPV Immature Gran % (Auto) Neut % (Auto) Lymph % (Auto) [place] % (Auto) Eos % (Auto) Baso % (Auto) Lymph # (Auto) [place] # (Auto) Eos # (Auto) Baso # (Auto) Abs Immat Gran (auto) Absolute Neuts (auto) Absolute Nucleated RBC Nucleated RBC % (auto) Smear Tech's Comments ESR Anion Gap Estim Creat Clear Calc Estimated GFR Random Glucose Calcium Magnesium Total Bilirubin AST ALT Alkaline Phosphatase 91 Ammonia Total Creatine Kinase 1363 H C-Reactive Protein Total Protein Cancelled 7.9 Albumin Cancelled 4.7 Vitamin B1 Vitamin B12 Folate Urine Color Urine Appearance Urine pH Ur Specific [place] Urine Protein Urine Glucose (UA) Urine Ketones Urine Blood Urine Nitrite Ur Leukocyte Esterase CSF Tube Number CSF Volume CSF Appearance CSF Color CSF WBC CSF RBC CSF Lymphocytes CSF Monocytes % CSF Appearance (b) CSF Glucose CSF Total Protein Urine Opiates Screen Ur Buprenorphine Scrn Ur Oxycodone Screen Urine Methadone Screen Urine Fentanyl Screen Ur Barbiturates Screen Ur Phencyclidine Scrn Ur Amphetamines Screen U Benzodiazepines Scrn Urine Cocaine Screen U Marijuana (THC) Screen Ethyl Alcohol Cancelled COVID-19 (DANIELA) COVID-19 Clin Com Influenza Type A (RYAN) Influenza Type B (RYAN) Influenza A & B Note 02/09/25 02/09/25 02/09/25 08:40 12:40 13:53 MCV MCH MCHC RDW Plt Count MPV Immature Gran % (Auto) Neut % (Auto) Lymph % (Auto) [place] % (Auto) Eos % (Auto) Baso % (Auto) Lymph # (Auto) [place] # (Auto) Eos # (Auto) Baso # (Auto) Abs Immat Gran (auto) Absolute Neuts (auto) Absolute Nucleated RBC Nucleated RBC % (auto) Smear Tech's Comments ESR Anion Gap Estim Creat Clear Calc Estimated GFR Random Glucose Calcium Magnesium Total Bilirubin AST ALT Alkaline Phosphatase Ammonia Total Creatine Kinase 1055 H C-Reactive Protein Total Protein Albumin Vitamin B1 Vitamin B12 Folate Urine Color Yellow Urine Appearance Clear Urine pH 7.5 Ur Specific [place] 1.010 Urine Protein Negative Urine Glucose (UA) 100 H Urine Ketones Negative Urine Blood Negative Urine Nitrite Negative Ur Leukocyte Esterase Negative CSF Tube Number CSF Volume CSF Appearance CSF Color CSF WBC CSF RBC CSF Lymphocytes CSF Monocytes % CSF Appearance (b) CSF Glucose CSF Total Protein Urine Opiates Screen POSITIVE H Ur Buprenorphine Scrn Not Detected Ur Oxycodone Screen Positive H Urine Methadone Screen Not Detected Urine Fentanyl Screen Not Detected Ur Barbiturates Screen Not Detected Ur Phencyclidine Scrn Not Detected Ur Amphetamines Screen Not Detected U Benzodiazepines Scrn POSITIVE H Urine Cocaine Screen Not Detected U Marijuana (THC) Screen Not Detected Ethyl Alcohol < 10 COVID-19 (DANIELA) Negative COVID-19 Clin Com See Note Influenza Type A (RAYN) Negative Influenza Type B (RYAN) Negative Influenza A & B Note See Note 02/09/25 02/09/25 02/09/25 16:08 21:49 22:56 MCV MCH MCHC RDW Plt Count MPV Immature Gran % (Auto) Neut % (Auto) Lymph % (Auto) [place] % (Auto) Eos % (Auto) Baso % (Auto) Lymph # (Auto) [place] # (Auto) Eos # (Auto) Baso # (Auto) Abs Immat Gran (auto) Absolute Neuts (auto) Absolute Nucleated RBC Nucleated RBC % (auto) Smear Tech's Comments ESR 2 Anion Gap Estim Creat Clear Calc Estimated GFR Random Glucose Calcium Magnesium 2.4 Total Bilirubin AST ALT Alkaline Phosphatase Ammonia 33 Total Creatine Kinase C-Reactive Protein 5.25 H Total Protein Albumin Vitamin B1 Cancelled Vitamin B12 1078 H Folate 11.3 Urine Color Urine Appearance Urine pH Ur Specific [place] Urine Protein Urine Glucose (UA) Urine Ketones Urine Blood Urine Nitrite Ur Leukocyte Esterase CSF Tube Number 1 CSF Volume CSF Appearance CSF Color CSF WBC CSF RBC CSF Lymphocytes CSF Monocytes % CSF Appearance (b) CSF Glucose CSF Total Protein Urine Opiates Screen Ur Buprenorphine Scrn Ur Oxycodone Screen Urine Methadone Screen Urine Fentanyl Screen Ur Barbiturates Screen Ur Phencyclidine Scrn Ur Amphetamines Screen U Benzodiazepines Scrn Urine Cocaine Screen U Marijuana (THC) Screen Ethyl Alcohol COVID-19 (DANIELA) COVID-19 Clin Com Influenza Type A (RYAN) Influenza Type B (RYAN) Influenza A & B Note 02/09/25 22:56 MCV MCH MCHC RDW Plt Count MPV Immature Gran % (Auto) Neut % (Auto) Lymph % (Auto) [place] % (Auto) Eos % (Auto) Baso % (Auto) Lymph # (Auto) [place] # (Auto) Eos # (Auto) Baso # (Auto) Abs Immat Gran (auto) Absolute Neuts (auto) Absolute Nucleated RBC Nucleated RBC % (auto) Smear Tech's Comments ESR Anion Gap Estim Creat Clear Calc Estimated GFR Random Glucose Calcium Magnesium Total Bilirubin AST ALT Alkaline Phosphatase Ammonia Total Creatine Kinase C-Reactive Protein Total Protein Albumin Vitamin B1 Vitamin B12 Folate Urine Color Urine Appearance Urine pH Ur Specific [place] Urine Protein Urine Glucose (UA) Urine Ketones Urine Blood Urine Nitrite Ur Leukocyte Esterase CSF Tube Number 4 CSF Volume 2.5 CSF Appearance CLEAR CSF Color COLORLESS CSF WBC 2 CSF RBC 0 CSF Lymphocytes 20 CSF Monocytes % 80 CSF Appearance (b) Clear, Colorless CSF Glucose 54 CSF Total Protein 94.3 H Urine Opiates Screen Ur Buprenorphine Scrn Ur Oxycodone Screen Urine Methadone Screen Urine Fentanyl Screen Ur Barbiturates Screen Ur Phencyclidine Scrn Ur Amphetamines Screen U Benzodiazepines Scrn Urine Cocaine Screen U Marijuana (THC) Screen Ethyl Alcohol COVID-19 (DANIELA) COVID-19 Clin Com Influenza Type A (RYAN) Influenza Type B (RYAN) Influenza A & B Note Imaging Radiologist's Impressions: Impressions Cervical Spine CT 02/09/25 09:15 IMPRESSION: No acute findings. Electronically signed by: Elsy Figueroa MD 02/09/2025 10:10 AM EST RP Head CT 02/09/25 09:15 IMPRESSION: No acute intracranial pathology. Electronically signed by: Elsy Figueroa MD 02/09/2025 09:55 AM EST RP Assessment and Plan (1) Fall: Status: Acute (2) Rhabdomyolysis: Status: Acute (3) Weakness: Status: Acute (4) JARED (acute kidney injury): Status: Acute Plan Patient is a 54-year-old male with a past medical history significant for history of alcohol use disorder (last drink in December), depression and hypertension, who presented to the ED after a fall last night at midnight. associated bilateral upper and lower extremity weakness and gait instability for the past 3 months. fall, rhabdo - PT eval - fall precautions - IVF - follow CPK weakness - neurology consult - LP CSF pending, high protein - lyme, tick panel, HIV, RPR, TSH pending - appreciate neuro input on repeat mri brain and/or spinal MRI JARED, likely due to rhabdo - IVF - monitor BMP leukocytosis, likely reactive - follow CBC HTN - conitnue atenolol depression/mood - clonazepam, bupropion, dextramphetamine med rec pending full code VTE prophy: lovenox Pt with fall and rhabdo due to weakness complicated by JARED requiring admission for at least 2 midnights stay for IV fluids and further evaluation. Quality Stroke Does the patient have a stroke diagnosis?: No VTE Prior VTE?: No VTE Risk Level:: Medical - moderate - high VTE Device Contraindication: Treatment Not Indicated VTE Drug Contraindication: N/A - Med Ordered
--- NOTE | 2025-02-10 00:45 | PC.NURSE ---
Took over care at 23:00 from CESAR Christianson, pt medicated per jun, Admitting PA into assess pt.
[2025-02-10 01:25] LABS: Free T4 (Free Thyroxine) 1.13 ng/dL (0.71-1.85)
[2025-02-10] MEDS: Lactated Ringers 1,000 ML 80 ML IVCONT ×2 (01:38→14:17)
--- NOTE | 2025-02-10 01:45 | PC.NURSE ---
medicated per mar.
[2025-02-10 03:16] VITALS: BP 178/84; PULSE 58; RESP 18; TEMP 36; O2SAT 100
[2025-02-10] MEDS: oxyCODONE HCl Immed Release 5 MG TABLET PO ×2 (06:30→16:52)
[2025-02-10 07:01] LABS: Anion Gap 10 (12-20); Blood Urea Nitrogen 14 mg/dL (9-16); Carbon Dioxide 21 mmol/L (22-29); Chloride 112 mmol/L (96-108); Creatinine Clr Calc Pharmacy 100.2; Estimated Glomerular Filt Rate > 60; Potassium 3.7 mmol/L (3.3-5.1); Sodium 139 mmol/L (135-145)
[2025-02-10 07:07] LABS: Calcium 8.8 mg/dL (8.4-10.2)
[2025-02-10 07:17] LABS: Syphilis Screen Nonreactive (Nonreactive)
[2025-02-10 08:00] VITALS: BP 180/95; PULSE 51; RESP 14; TEMP 36.2; O2SAT 100
[2025-02-10 08:04] LABS: HIV Num 1 0.08 S/CO (0.00-0.99)
[2025-02-10 08:49] LABS: Hematocrit 44.5 % (42.0-52.0); Hemoglobin 14.9 g/dl (14.0-18.0); Mean Corpuscular HGB Conc 33.5 g/dl (31.0-36.0); Mean Corpuscular Hemoglobin 28.2 pg (27.0-33.0); Mean Corpuscular Volume 84.3 fL (80.0-98.0); NRBC Abs Auto 0.000 X10*3/uL (0.0-0.012); NRBC Pct Auto 0.0 /100WBC (0.0-0.2); Platelet Count 240 X10*3/uL (160-400); Red Blood Count 5.28 X10*6/uL (4.60-5.80); White Blood Count 11.0 X10*3/uL (4.8-10.8)
[2025-02-10] MEDS: 0.9 % Sodium Chloride Flush 3 ML SYRINGE IVFLUSH ×3 (09:00→21:42)
--- NOTE | 2025-02-10 09:06 | PHA.MEDREC ---
Addendum entered by Gavino Weiss, PharmD 02/10/25 09:53: MED REC CHECKED BY [facility] Original Note: Pharmacy Consult ? Medication Reconciliation Pharmacy has completed the medication reconciliation. Spoke with pt and he confirmed his medications. Pt no longer taking Tizanidine; made pt too drowsy.
--- NOTE | 2025-02-10 10:45 | PM.NEUROCN ---
History of Present Illness Data of Consult Service Date: 02/10/25 Primary Care Provider: Shauna Hale MD [facility] Reason for consult: Generalized weakness 54 years old man with underlying history of alcohol use disorder not drinking for few weeks was in hospital after he was found on the floor. Apparently he fell down at home and was on the floor for many hours before he was able to call for help. He was brought to emergency room after forcefully opening the door. It was not clear if he had any seizure. His initial CPK was high. He said that he has been feeling generally weak especially in his legs like there was a band around his belly for about 3 months and slowly it was getting worse. He denied any bowel bladder difficulties. There was no new or significant back pain. A lumbar puncture was performed that revealed CSF protein of 90 for with normal cells. He denied any breathing or swallowing difficulty or change in his speech. There was no visual symptom. He also complain of bilateral hand numbness and weakness. Review of Systems Constitutional: Constitutional: Reports as per HPI [facility] Past Medical History Medical History Alcohol use disorder History of COVID-19 History of ADHD Depression HTN (hypertension) Surgical History Surgical History H/O colonoscopy Hx of colectomy Hx of left inguinal hernia repair History of repair of ACL Hx of arthroscopy of knee Social History Social History Household Members: None Household Members Other:: PET Housing: Condominium Do you presently have visiting nurse or other home services: No Alcohol intake: former Patient Tobacco Use Status: Current everyday Tobacco user Tobacco use type: Cigarette Cigarette Packs Per Day: 0.5 Cigarettes Per Day: 15 Smoked in Last 30 Days: Yes e-Cigarette/Vaping Use: Never Used Patient Interested in Nicotine Replacement: No Patient Given Instructions on How to Stop Smoking: Yes Date Education Initiated: 02/10/25 Second Hand Smoke Exposure: Yes Do you feel safe in your current relationship?: No Current Relationship Advance Directives: No Advance Directives Information Provided: Yes Do you have a plan to hurt others: No Plan Recently lost weight without trying: No Nutrition Risks: No Nutritional Risk Poor oral hygiene: No service: No Meds Allergies Allergy/AdvReac Type Severity Reaction Status Date / Time amoxicillin (Augmentin) AdvReac Severe Nausea and Verified 02/09/25 08:03 Vomiting clavulanic acid (Augmentin) AdvReac Severe Nausea and Verified 02/09/25 08:03 Vomiting NSAIDS Allergy Intermediate renal Uncoded 02/09/25 08:03 insuff Active Medications: Current Medications Acetaminophen (Acetaminophen 325 Mg Tablet) 975 mg PO Q6H PRN PRN Reason: Pain, Mild 1-3,fever,headache Calcium Carbonate (Calcium Carbonate 750 Mg Tab.Chew) 750 mg PO Q4H PRN PRN Reason: Heartburn Clonazepam (Clonazepam 0.5 Mg Tablet) 0.5 mg PO BID PRN PRN Reason: Anxiety Enoxaparin Sodium (Enoxaparin Sodium 40 Mg/0.4 Ml Syringe) 40 mg SUBCUT Q24H [facility] Last Admin: 02/10/25 00:40 Dose: 40 mg Hydromorphone HCl (Hydromorphone Hcl 1 Mg/Ml Syringe) 1 mg IVPUSH Q4H PRN; Protocol PRN Reason: Pain, Severe (Pain Scale 7-10) Last Admin: 02/10/25 08:58 Dose: 1 mg Lactated Ringer's (Lr) 1,000 mls @ 80 mls/hr IVCONT .[id number] [facility] Last Admin: 02/10/25 01:38 Dose: 80 mls/hr Magnesium Hydroxide (Milk Of Magnesia 30 Ml Oral.Susp) 30 ml PO DAILY PRN PRN Reason: Constipation Melatonin (Melatonin 3 Mg Tablet) 6 mg PO BEDTIME PRN PRN Reason: Insomnia Ondansetron HCl (Ondansetron Hcl 4 Mg/2 Ml Vial) 4 mg IVPUSH Q8H PRN PRN Reason: Nausea and Vomiting Oxycodone HCl (Oxycodone Hcl Immed Release 5 Mg Tablet) 5 mg PO Q6H PRN PRN Reason: Pain, Moderate(Pain Scale 4-6) Last Admin: 02/10/25 06:30 Dose: 5 mg Sodium Chloride (0.9 % Sodium Chloride Flush 3 Ml Syringe) 3 ml IVFLUSH QSHIFT [facility] Last Admin: 02/10/25 09:00 Dose: 3 ml Home Medications ?Medication ?Instructions ?Recorded ?Confirmed ?Last Taken ?Type atenolol 100 mg tablet 100 mg PO DAILY 12/05/24 02/10/25 02/09/25 History bupropion HCl 300 mg 24 hr tablet, 300 mg PO DAILY 12/05/24 02/10/25 02/09/25 History extended release clonazepam 0.5 mg tablet 0.5 mg PO BID PRN anxiety 12/05/24 02/10/25 Unknown History dextroamphetamine-amphetamine 7.5 7.5 mg PO BID attention deficit 12/05/24 02/10/25 02/09/25 History mg tablet hyperactivity disorder diphenoxylate-atropine 2.5 1 tab PO QID loose stool 12/05/24 02/10/25 02/09/25 History mg-0.025 mg tablet Physical Exam Vital Signs: Vital Signs: Last Vital Signs Temp 97.2 F 02/10/25 08:00 Pulse 51 02/10/25 08:00 Resp 14 02/10/25 08:00 BP 180/95 H 02/10/25 08:00 Pulse Ox 100 02/10/25 08:00 O2 Del Method Room Air 02/10/25 08:00 BMI result Body Mass Index 28.7 Neuro: Other: Mental Status: He is alert and awake with normal spontaneity and fluency of speech. His following commands. Is not in any distress. Cranial Nerves: CN II: Visual crawford full to confrontation, visual acuity intact. CN III, IV, : Pupils equal, round, reactive to light and accommodation. Extraocular movements are normal. CN V: Facial sensation is normal. CN VII: Facial movements symmetrical. CN VIII: Hearing intact to bedside conversation is normal. CN IX, X: Palate elevates symmetrically. CN XI: Shoulder shrug and head turn symmetrical. CN XII: Tongue midline without atrophy or fasciculations. Motor: Hyperemic rashes noted in his feet and hands. Deep tendon reflexes are 2+ in upper extremities and good 2+ in knees with left 1+ in right absent ankle reflex. Left plantars was extensor will right was flexor. He was able to lift his legs against gravity. Right knee was swollen and bruised. There were bruises on his face. Joint position sensation was absent in toes. Extrapyramidal: Full facial expressions and blinking. No rigidity. Movements are appropriate with no tremor or abnormality. Speech: Normal; no dysarthria or tremor. Results Labs 02/10/25 08:28 02/10/25 06:24 Labs: Short CBC 02/10/25 Range/Units 08:28 WBC 11.0 H (4.8-10.8) X10*3/uL Hgb 14.9 (14.0-18.0) g/dl Hct 44.5 (42.0-52.0) % Plt Count 240 D (160-400) X10*3/uL BMP 02/10/25 06:24 Sodium 139 Potassium 3.7 Chloride 112 H Carbon Dioxide 21 L BUN 14 Creatinine 0.84 Calcium 8.8 D Cardiac Enzymes 02/09/25 02/10/25 Range/Units 13:53 06:24 Total Creatine Kinase 1055 H 808 H (38-174) U/L Urine 02/09/25 Range/Units 12:40 Urine Color Yellow Urine Appearance Clear Urine pH 7.5 (5.0-9.0) Ur Specific [place] 1.010 (1.005-1.025) Urine Protein Negative (Neg-Trace) mg/dL Urine Glucose (UA) 100 H (Negative) mg/dL CLINICAL HISTORY: profound weakness Pt was incompliance when in the scan, scan was aborted after the diffusion due to safety concern. incomplete exam MR Brain without gadolinium Comparison: CT/MD/SR - CT HEAD WITHOUT IV CONTRAST - 02/09/25 09:15 EST Findings: Examination is terminated early due to patient tolerance. No restricted diffusion. No additional abnormality identified on limited evaluation. IMPRESSION: Examination terminated prematurely due to patient tolerance. No acute intracranial abnormality on limited evaluation. Microbiology Microbiology Results: Microbiology 02/09/25 22:56 Cerebrospinal Fluid Gram Stain - Final 02/09/25 22:56 Cerebrospinal Fluid Fluid Description - Final 02/09/25 22:56 Cerebrospinal Fluid CSF Culture - Preliminary No growth after 1 day Assessment and Plan (1) Generalized weakness: Status: Acute 54 years old man with complicated clinical picture. Apparently he has significant history of alcohol use disorder which typically can impact central and peripheral nervous system, especially causing peripheral neuropathy, which is 1 of the reasons for generalized weakness. He has some clinical features suggestive of that type of chronic neuropathy. At the same time, he might have developed something new during last few months when he noticed bilateral leg weakness and a bandlike sensation around his waist. His examination revealed relative hyperreflexia of knees and left ankle with left extensor plantars suggesting that he definitely has some upper motor neuron pathology. With his complain of bandlike sensation around the waist, transverse myelitis would be a reasonable consideration. His CSF protein was abnormal that could go along with that diagnosis. Guillain-Hope syndrome is a possibility but seems less likely because of relative hyperreflexia though it can not be completely disregarded. I did not find any obvious fasciculations and overall clinical picture was somewhat atypical for a diagnosis of motor neuron disease or ALS, which might also be considered but would not explain high CSF protein. Out of all these, more likely possibility is transverse myelitis with underlying alcoholic chronic peripheral neuropathy. It is important to image his central nervous system. With some sedation on board, my recommendation is to obtain MRI of cervical and thoracic spine and finish the MRI of brain that is only partly done. In the meantime, I would suggest treating her with Solu-Medrol 1 g a day for 3 days. If possible, I would obtain nerve conduction studies to rule out any possibility of demyelinating neuropathy. Finally, because of his underlying history, which should pay attention to acute vitamin deficiencies including thiamine, folate and, another B complex vitamins. Procedures Date of Service Date of Service: 02/10/25
[2025-02-10 11:14] VITALS: BP 140/70; PULSE 73
[2025-02-10] MEDS: buPROPion HCl XL 300 MG TAB.ER.24H PO (11:18)
[2025-02-10] MEDS: Thiamine HCL 200 MG in 0.9 % Sodium Chloride 100 ML 204 MG IV (12:48)
--- NOTE | 2025-02-10 13:05 | MHC.CM.PN ---
PT REPORTS HE LIVES ALONE AND IS INDEPENDENT WITH CARE HE HAS NO DME OR SERVICES DECLINES A HCP PCP: ROSEMARY TOSCANO PT STATES HE HAS TO GO HOME AT DC HE MUST RETURN TO WORK SOON POSSIBLE HE REPORTS HE HAS BEEN WORKING IN HIS CURRENT CONDITION AND ALTHOUGH NOT IDEAL, HE CAN MANAGE PLAN IS FOR PT TO HAVE AN MRI OF THE BRAIN/SPINE
[2025-02-10] MEDS: methylPREDNISolone Sod Succ 1,000 MG in 0.9 % Sodium Chloride 50 ML 66 MG IV (13:08)
--- NOTE | 2025-02-10 13:54 | P.PNIM_ITS ---
Subjective Subjective Date of Service: 02/10/25 Interval History: Continued numbness and tingling in hands and weakness in lower extremities Feels a persistent ?tightness? around his waist Was unable to tolerate MRI of brain due to anxiety and pain Denies shortness or breath or difficulty breathing Review of Systems Review of Systems: Yes all other systems are reviewed and are negative Physical Exam 2 Exam: Exam: General: AOx3, no acute distress Resp: CTA bilaterally CVS: S1, S2, RRR GI: +BS, NT, no distention Skin: Warm, dry Back: Thoracic and lumbar spinal process tenderness; mild paraspinal tenderness Neuro: Cranial nerves II-XII grossly intact bilaterally. Motor grossly intact bilaterally. Lower extremity generalized weakness Extremities: No edema Psych: Anxious Vital Signs: Vital Signs: Last Vital Signs Temp 97.2 F 02/10/25 08:00 Pulse 73 02/10/25 11:14 Resp 14 02/10/25 08:00 BP 140/70 H 02/10/25 11:14 Pulse Ox 100 02/10/25 08:00 O2 Del Method Room Air 02/10/25 08:00 BMI result Body Mass Index 28.7 Objective Data Active Medications Acetaminophen (Acetaminophen 325 Mg Tablet) 975 mg PO Q6H PRN PRN Reason: Pain, Mild 1-3,fever,headache Atenolol (Atenolol 100 Mg Tablet) 100 mg PO DAILY [facility]; Protocol Last Admin: 02/10/25 11:18 Dose: 100 mg Documented By: JAXON Bupropion HCl (Bupropion Hcl Xl 300 Mg Tab.Er.24h) 300 mg PO DAILY [facility] Last Admin: 02/10/25 11:18 Dose: 300 mg Documented By: JAXON Calcium Carbonate (Calcium Carbonate 750 Mg Tab.Chew) 750 mg PO Q4H PRN PRN Reason: Heartburn Clonazepam (Clonazepam 0.5 Mg Tablet) 0.5 mg PO BID PRN PRN Reason: Anxiety Enoxaparin Sodium (Enoxaparin Sodium 40 Mg/0.4 Ml Syringe) 40 mg SUBCUT Q24H [facility] Last Admin: 02/10/25 00:40 Dose: 40 mg Documented By: DARIO Folic Acid (Folic Acid 1 Mg Tablet) 1 mg PO DAILY [facility] Stop: 02/13/25 11:39 Last Admin: 02/10/25 12:47 Dose: 1 mg Documented By: JAXON Hydromorphone HCl (Hydromorphone Hcl 1 Mg/Ml Syringe) 1 mg IVPUSH Q4H PRN; Protocol PRN Reason: Pain, Severe (Pain Scale 7-10) Last Admin: 02/10/25 13:06 Dose: 1 mg Documented By: JAXON Lactated Ringer's (Lr) 1,000 mls @ 80 mls/hr IVCONT .[id number] [facility] Last Admin: 02/10/25 01:38 Dose: 80 mls/hr Documented By: DARIO Thiamine HCl 200 mg/ Sodium (Chloride) 102 mls @ 204 mls/hr IV Q12H [facility] Stop: 02/11/25 00:29 Last Infusion: 02/10/25 13:52 Dose: Infused Documented By: JAXON Methylprednisolone Sodium Succinate 1,000 mg/ Sodium Chloride 66 mls @ 66 mls/hr IV DAILY [facility] Stop: 02/12/25 09:59 Last Admin: 02/10/25 13:08 Dose: 66 mls/hr Documented By: JAXON Magnesium Hydroxide (Milk Of Magnesia 30 Ml Oral.Susp) 30 ml PO DAILY PRN PRN Reason: Constipation Melatonin (Melatonin 3 Mg Tablet) 6 mg PO BEDTIME PRN PRN Reason: Insomnia Multivitamins/Vitamin C (Multivitamin Tablet) 1 tab PO DAILY [facility] Stop: 02/13/25 11:39 Last Admin: 02/10/25 12:47 Dose: 1 tab Documented By: JAXON Ondansetron HCl (Ondansetron Hcl 4 Mg/2 Ml Vial) 4 mg IVPUSH Q8H PRN PRN Reason: Nausea and Vomiting Oxycodone HCl (Oxycodone Hcl Immed Release 5 Mg Tablet) 5 mg PO Q6H PRN PRN Reason: Pain, Moderate(Pain Scale 4-6) Last Admin: 02/10/25 06:30 Dose: 5 mg Documented By: MANAS Sodium Chloride (0.9 % Sodium Chloride Flush 3 Ml Syringe) 3 ml IVFLUSH QSHIFT [facility] Last Admin: 02/10/25 09:00 Dose: 3 ml Documented By: JAXON Thiamine HCl (Thiamine Hcl 100 Mg Tablet) 100 mg PO DAILY [facility] Labs 02/10/25 08:28 02/10/25 06:24 Labs: Laboratory Results - last 24 hr 02/09/25 02/09/25 02/09/25 08:40 13:53 16:08 MCV MCH MCHC RDW Plt Count MPV Absolute Nucleated RBC Nucleated RBC % (auto) ESR Anion Gap Estim Creat Clear Calc Estimated GFR Random Glucose Calcium Magnesium 2.4 Ammonia 33 Total Creatine Kinase 1055 H C-Reactive Protein 5.25 H Vitamin B1 Cancelled Vitamin B12 1078 H Folate 11.3 TSH 0.04 L Free T4 1.13 CSF Tube Number CSF Volume CSF Appearance CSF Color CSF WBC CSF RBC CSF Lymphocytes CSF Monocytes % CSF Appearance (b) CSF Glucose CSF Total Protein CSF C.neoform/gat PCR CSF CMV DNA (PCR) CSF Enterovirus (PCR) CSF E. coli K1 (PCR) CSF H. influenzae (PCR) CSF HSV I (PCR) CSF HSV II (PCR) CSF HHV 6 (PCR) CSF L.monocytogenes PCR CSF N. meningitidis PCR CSF Parechovirus (PCR) CSF S. agalactiae (PCR) CSF S. pneumoniae (PCR) CSF VZV (PCR) T.pallidum Ab (EIA) HIV 1&2 Ab/P24 Ag 4thGn 02/09/25 02/09/25 02/09/25 20:54 21:49 22:56 MCV MCH MCHC RDW Plt Count MPV Absolute Nucleated RBC Nucleated RBC % (auto) ESR 2 Anion Gap Estim Creat Clear Calc Estimated GFR Random Glucose Calcium Magnesium Ammonia Total Creatine Kinase C-Reactive Protein Vitamin B1 Vitamin B12 Folate TSH Free T4 CSF Tube Number 1 CSF Volume CSF Appearance CSF Color CSF WBC CSF RBC CSF Lymphocytes CSF Monocytes % CSF Appearance (b) CSF Glucose CSF Total Protein CSF C.neoform/gat PCR CSF CMV DNA (PCR) CSF Enterovirus (PCR) CSF E. coli K1 (PCR) CSF H. influenzae (PCR) CSF HSV I (PCR) CSF HSV II (PCR) CSF HHV 6 (PCR) CSF L.monocytogenes PCR CSF N. meningitidis PCR CSF Parechovirus (PCR) CSF S. agalactiae (PCR) CSF S. pneumoniae (PCR) CSF VZV (PCR) T.pallidum Ab (EIA) Nonreactive HIV 1&2 Ab/P24 Ag 4thGn 02/09/25 02/10/25 02/10/25 22:56 06:24 08:28 MCV 84.3 MCH 28.2 MCHC 33.5 RDW 14.4 Plt Count 240 D MPV 10.1 Absolute Nucleated RBC 0.000 Nucleated RBC % (auto) 0.0 ESR Anion Gap 10 L Estim Creat Clear Calc 100.2 Estimated GFR > 60 Random Glucose 190 H Calcium 8.8 D Magnesium Ammonia Total Creatine Kinase 808 H C-Reactive Protein Vitamin B1 Vitamin B12 Folate TSH Free T4 CSF Tube Number 4 CSF Volume 2.5 CSF Appearance CLEAR CSF Color COLORLESS CSF WBC 2 CSF RBC 0 CSF Lymphocytes 20 CSF Monocytes % 80 CSF Appearance (b) Clear, Colorless CSF Glucose 54 CSF Total Protein 94.3 H CSF C.neoform/gat PCR Not Detected CSF CMV DNA (PCR) Not Detected CSF Enterovirus (PCR) Not Detected CSF E. coli K1 (PCR) Not Detected CSF H. influenzae (PCR) Not Detected CSF HSV I (PCR) Not Detected CSF HSV II (PCR) Not Detected CSF HHV 6 (PCR) Not Detected CSF L.monocytogenes PCR Not Detected CSF N. meningitidis PCR Not Detected CSF Parechovirus (PCR) Not Detected CSF S. agalactiae (PCR) Not Detected CSF S. pneumoniae (PCR) Not Detected CSF VZV (PCR) Not Detected T.pallidum Ab (EIA) HIV 1&2 Ab/P24 Ag 4thGn Nonreactive Microbiology Microbiology Results: Microbiology 02/09/25 22:56 Gram Stain - Final Cerebrospinal Fluid Fluid Description - Final CSF Culture - Preliminary No growth after 1 day Assessment and Plan (1) Lower extremity weakness: Status: Acute Plan Patient is a 54-year-old male with a past medical history significant for history of alcohol use disorder (last drink in December), depression and hypertension, who presented to the ED after a fall last night at midnight. associated bilateral upper and lower extremity weakness and gait instability for the past 3 months. lower extremity weakness - ongoing x3 weeks, worsening past few days - concerning for transverse myelitis with underlying alcoholic chronic peripheral neuropathy vs Guillain-Edison syndrome - LP CSF showing high protein - lyme, tick panel, HIV, RPR, TSH pending - pt unable to tolerate MRI of brain in the ED due to anxiety and pain - will get EMG of left leg, nerve conduction studies bilaterally of lower extremities - MRI of head, cervical spine, and thoracic spine - hydromorphone and Ativan prior to MRI - empirically treat with Solu-Medrol 1 g IV x3 days - supplement with thiamine, folic acid, and multivitamin - neurology following fall, rhabdo - CPK improving after IVF, 1363--> 808 - continue gentle IVF resuscitation - PT eval - follow CPK JARED, resolved - likely due to rhabdo - creatinine has normalized after IVF leukocytosis, likely reactive - follow CBC HTN - conitnue atenolol depression/mood - clonazepam, bupropion, dextramphetamine alcohol use disorder - CIWA full code VTE prophy: lovenox Pt requires continued hospitalization for lower extremity weakness concerning for transverse myelitis that requires high dose IV steroids and close monitoring. pt will also require additional workup including MRI of brain, C- spine, and thoracic spine. Quality Stroke Does the patient have a stroke diagnosis?: No VTE Prior VTE?: No VTE Risk Level:: Medical - moderate - high VTE Device Contraindication: Treatment Not Indicated VTE Drug Contraindication: N/A - Med Ordered
[2025-02-10 15:32] VITALS: BP 146/72; PULSE 56; RESP 18; TEMP 36.4; O2SAT 98
--- NOTE | 2025-02-10 16:30 | PC.NURSE ---
Clonazepam was administered per patient request for anxiety with good effect
[2025-02-10 19:12] VITALS: BP 147/71; PULSE 58; RESP 18; TEMP 36.2; O2SAT 96
[2025-02-11] MEDS: Thiamine HCL 200 MG in 0.9 % Sodium Chloride 100 ML 204 MG IV (00:22)
[2025-02-11] MEDS: oxyCODONE HCl Immed Release 5 MG TABLET PO ×3 (00:27→17:04)
[2025-02-11 04:00] VITALS: BP 132/74; PULSE 68; RESP 18; TEMP 36.4; O2SAT 97
[2025-02-11] MEDS: Lactated Ringers 1,000 ML 80 ML IVCONT (04:37)
[2025-02-11 05:18] LABS: Hematocrit 39.4 % (42.0-52.0); Hemoglobin 13.4 g/dl (14.0-18.0); Mean Corpuscular HGB Conc 34.0 g/dl (31.0-36.0); Mean Corpuscular Hemoglobin 28.0 pg (27.0-33.0); Mean Corpuscular Volume 82.3 fL (80.0-98.0); NRBC Abs Auto 0.000 X10*3/uL (0.0-0.012); NRBC Pct Auto 0.0 /100WBC (0.0-0.2); Platelet Count 238 X10*3/uL (160-400); Red Blood Count 4.79 X10*6/uL (4.60-5.80); White Blood Count 11.5 X10*3/uL (4.8-10.8)
[2025-02-11 05:36] LABS: Anion Gap 12 (12-20); Blood Urea Nitrogen 15 mg/dL (9-16); Calcium 9.3 mg/dL (8.4-10.2); Carbon Dioxide 22 mmol/L (22-29); Chloride 110 mmol/L (96-108); Creatinine Clr Calc Pharmacy 87.7; Estimated Glomerular Filt Rate > 60; Potassium 3.8 mmol/L (3.3-5.1); Sodium 140 mmol/L (135-145)
[2025-02-11 07:18] VITALS: BP 165/77; PULSE 59; RESP 18; TEMP 36.8; O2SAT 96
[2025-02-11] MEDS: buPROPion HCl XL 300 MG TAB.ER.24H PO (07:32)
[2025-02-11] MEDS: methylPREDNISolone Sod Succ 1,000 MG in 0.9 % Sodium Chloride 50 ML 66 MG IV (07:38)
--- NOTE | 2025-02-11 10:31 | HO.PM.IMPN ---
Subjective Subjective Date of Service: 02/11/25 Interval History: Was able to obtain MRI of brain last night which was negative Will attempt for MRI of cervical and thoracic spine Pt refers feels mildly better with improvement to back pain Feels slightly more energetic Numbness and tingling of upper extremities continues Denies headache or chest pain Review of Systems Review of Systems: Yes all other systems are reviewed and are negative Physical Exam Exam: Exam: General: AOx3, no acute distress. Resting comfortably in bed Resp: CTA bilaterally Face: Bruising chin and cheeks CVS: S1, S2, RRR GI: +BS, NT, no distention Skin: Warm, dry Neuro: Cranial nerves II-XII grossly intact bilaterally. Motor grossly intact bilaterally. Bilateral 3/5 leg strength. Extremities: No edema. Scabbed superficial abrasions on right elbow and left knee Psych: Less anxious than yesterday. Overall calm and cooperative Vital Signs: Vital Signs: Last Vital Signs Temp 98.3 F 02/11/25 07:18 Pulse 59 02/11/25 07:18 Resp 18 02/11/25 07:18 BP 165/77 H 02/11/25 07:18 Pulse Ox 96 02/11/25 07:18 O2 Del Method Room Air 02/11/25 07:18 BMI result Body Mass Index 28.7 Objective Data Active Medications Acetaminophen (Acetaminophen 325 Mg Tablet) 975 mg PO Q6H PRN PRN Reason: Pain, Mild 1-3,fever,headache Atenolol (Atenolol 100 Mg Tablet) 100 mg PO DAILY [facility]; Protocol Last Admin: 02/11/25 07:32 Dose: 100 mg Documented By: DARIA Bupropion HCl (Bupropion Hcl Xl 300 Mg Tab.Er.24h) 300 mg PO DAILY [facility] Last Admin: 02/11/25 07:32 Dose: 300 mg Documented By: DARIA Calcium Carbonate (Calcium Carbonate 750 Mg Tab.Chew) 750 mg PO Q4H PRN PRN Reason: Heartburn Clonazepam (Clonazepam 0.5 Mg Tablet) 0.5 mg PO BID PRN PRN Reason: Anxiety Last Admin: 02/11/25 06:04 Dose: 0.5 mg Documented By: TATYANA Enoxaparin Sodium (Enoxaparin Sodium 40 Mg/0.4 Ml Syringe) 40 mg SUBCUT Q24H [facility] Last Admin: 02/11/25 00:12 Dose: 40 mg Documented By: TATYANA Folic Acid (Folic Acid 1 Mg Tablet) 1 mg PO DAILY [facility] Stop: 02/13/25 11:39 Last Admin: 02/11/25 07:32 Dose: 1 mg Documented By: DARIA Hydromorphone HCl (Hydromorphone Hcl 1 Mg/Ml Syringe) 1 mg IVPUSH Q4H PRN; Protocol PRN Reason: Pain, Severe (Pain Scale 7-10) Last Admin: 02/11/25 07:31 Dose: 1 mg Documented By: DARIA Lactated Ringer's (Lr) 1,000 mls @ 80 mls/hr IVCONT .[id number] [facility] Last Admin: 02/11/25 04:37 Dose: 80 mls/hr Documented By: TATYANA Methylprednisolone Sodium Succinate 1,000 mg/ Sodium Chloride 66 mls @ 66 mls/hr IV DAILY [facility] Stop: 02/12/25 09:59 Last Infusion: 02/11/25 08:35 Dose: 0 mls/hr Documented By: DARIA Magnesium Hydroxide (Milk Of Magnesia 30 Ml Oral.Susp) 30 ml PO DAILY PRN PRN Reason: Constipation Melatonin (Melatonin 3 Mg Tablet) 6 mg PO BEDTIME PRN PRN Reason: Insomnia Multivitamins/Vitamin C (Multivitamin Tablet) 1 tab PO DAILY [facility] Stop: 02/13/25 11:39 Last Admin: 02/11/25 07:32 Dose: 1 tab Documented By: DARIA Ondansetron HCl (Ondansetron Hcl 4 Mg/2 Ml Vial) 4 mg IVPUSH Q8H PRN PRN Reason: Nausea and Vomiting Oxycodone HCl (Oxycodone Hcl Immed Release 5 Mg Tablet) 5 mg PO Q6H PRN PRN Reason: Pain, Moderate(Pain Scale 4-6) Last Admin: 02/11/25 00:27 Dose: 5 mg Documented By: TATYANA Sodium Chloride (0.9 % Sodium Chloride Flush 3 Ml Syringe) 3 ml IVFLUSH QSHIFT [facility] Last Admin: 02/11/25 07:32 Dose: Not Given Documented By: DARIA Non-Admin Reason: IV Running Thiamine HCl (Thiamine Hcl 100 Mg Tablet) 100 mg PO DAILY [facility] Last Admin: 02/11/25 07:32 Dose: 100 mg Documented By: DARIA Labs 02/11/25 04:31 02/11/25 04:31 Labs: Laboratory Results - last 24 hr 02/11/25 04:31 MCV 82.3 MCH 28.0 MCHC 34.0 RDW 14.5 Plt Count 238 MPV 11.1 Absolute Nucleated RBC 0.000 Nucleated RBC % (auto) 0.0 Anion Gap 12 Estim Creat Clear Calc 87.7 Estimated GFR > 60 Random Glucose 160 H Calcium 9.3 Total Creatine Kinase 285 H Microbiology Microbiology Results: Microbiology 02/09/25 22:56 Gram Stain - Final Cerebrospinal Fluid Fluid Description - Final CSF Culture - Preliminary No growth after 2 days Assessment and Plan (1) JARED (acute kidney injury): Status: Acute (2) Rhabdomyolysis: Status: Acute (3) Lower extremity weakness: Status: Acute Plan Patient is a 54-year-old male with a past medical history significant for history of alcohol use disorder (last drink in December), depression and hypertension, who presented to the ED after a fall last night at midnight. associated bilateral upper and lower extremity weakness and gait instability for the past 3 months. lower extremity weakness - ongoing x3 weeks, worsening past few days - concerning for transverse myelitis with underlying alcoholic chronic peripheral neuropathy vs Guillain-[place]ain[place] syndrome - LP CSF showing high protein - lyme, tick panel pending; HIV and RPR pending - pt unable to tolerate MRI of brain in the ED due to anxiety and pain - will get EMG of left leg, nerve conduction studies bilaterally of lower extremities - MRI of head negative - will get MRI of cervical and thoracic spines - hydromorphone and Ativan prior to MRI - empirically treat with Solu-Medrol 1 g IV x3 days, ending 02/12 - supplement with thiamine, folic acid, and multivitamin - neurology following fall with rhabdo - CPK improving after IVF, 1363--> 285, resovled - treated with gentle IVF resuscitation - PT eval JARED, resolved - likely due to rhabdo - creatinine has normalized after IVF leukocytosis, likely reactive - follow CBC Subclinical hyperthyroidism - TSH 0.04, free T4 WNL at 1.13 - Follow up with PCP for repeat labs in 2-4 months HTN - conitnue atenolol depression/mood - clonazepam, bupropion, dextramphetamine alcohol use disorder - CIWA full code VTE prophy: lovenox Pt requires continued hospitalization for lower extremity weakness concerning for transverse myelitis that requires high dose IV steroids and close monitoring. pt will also require additional workup including MRI of C-spine and thoracic spine. Quality Stroke Does the patient have a stroke diagnosis?: No VTE Prior VTE?: No VTE Risk Level:: Medical - moderate - high VTE Device Contraindication: Treatment Not Indicated VTE Drug Contraindication: N/A - Med Ordered
[2025-02-11 13:49] VITALS: BP 151/67
[2025-02-11 15:40] VITALS: BP 149/72; PULSE 70; RESP 18; TEMP 36; O2SAT 98
[2025-02-11 16:59] LABS: A. Phagocytphilium DNA,RT-PCR NOT DETECTED (NOT DETECTED); Babesia Microti DNA, RT-PCR NOT DETECTED (NOT DETECTED); Borrelia Miyamotoi,DNA RT-PCR NOT DETECTED (NOT DETECTED); E.Chaffeensis DNA RT-PCR NOT DETECTED (NOT DETECTED); Lyme(Borrelia ssp)DNA RT-PCR NOT DETECTED (NOT DETECTED)
[2025-02-11] MEDS: 0.9 % Sodium Chloride Flush 3 ML SYRINGE IVFLUSH (19:58)
[2025-02-11 20:00] VITALS: BP 122/58; PULSE 72; RESP 18; TEMP 36.8; O2SAT 99
[2025-02-12] MEDS: oxyCODONE HCl Immed Release 5 MG TABLET PO ×4 (03:31→23:00)
[2025-02-12 03:33] VITALS: BP 141/67; PULSE 78; RESP 18; TEMP 36.6; O2SAT 96
[2025-02-12 07:05] VITALS: BP 184/77; PULSE 62; RESP 16; TEMP 36.7; O2SAT 98
[2025-02-12 08:44] LABS: Hematocrit 41.5 % (42.0-52.0); Hemoglobin 13.9 g/dl (14.0-18.0); Mean Corpuscular HGB Conc 33.5 g/dl (31.0-36.0); Mean Corpuscular Hemoglobin 27.6 pg (27.0-33.0); Mean Corpuscular Volume 82.5 fL (80.0-98.0); NRBC Abs Auto 0.000 X10*3/uL (0.0-0.012); NRBC Pct Auto 0.0 /100WBC (0.0-0.2); Platelet Count 268 X10*3/uL (160-400); Red Blood Count 5.03 X10*6/uL (4.60-5.80); White Blood Count 20.1 X10*3/uL (4.8-10.8)
[2025-02-12] MEDS: buPROPion HCl XL 300 MG TAB.ER.24H PO (08:49)
[2025-02-12 08:58] LABS: Anion Gap 13 (12-20); Blood Urea Nitrogen 19 mg/dL (9-16); Calcium 9.6 mg/dL (8.4-10.2); Carbon Dioxide 22 mmol/L (22-29); Chloride 112 mmol/L (96-108); Creatinine Clr Calc Pharmacy 96.8; Estimated Glomerular Filt Rate > 60; Potassium 3.7 mmol/L (3.3-5.1); Sodium 143 mmol/L (135-145)
[2025-02-12] MEDS: methylPREDNISolone Sod Succ 1,000 MG in 0.9 % Sodium Chloride 50 ML 66 MG IV (08:58)
[2025-02-12] MEDS: 0.9 % Sodium Chloride Flush 3 ML SYRINGE IVFLUSH ×3 (08:58→23:55)
[2025-02-12 15:21] VITALS: BP 141/74; PULSE 62; RESP 16; TEMP 36.8; O2SAT 99
--- NOTE | 2025-02-12 15:41 | P.PNIM_ITS ---
Subjective Subjective Date of Service: 02/12/25 Interval History: Reports improved symptoms Pain and muscle spasms less intense Feels less weak, upper extremities with less numbness and tingling Cervical MRI found moderate to severe central canal stenosis and likely focal myelopathy or myelomalacia No saddle anesthesia No changes to bowel or bladder habits Review of Systems Review of Systems: Yes all other systems are reviewed and are negative Physical Exam 2 Exam: Exam: General: AOx3, no acute distress. Resting comfortably in bed Resp: CTA bilaterally CVS: S1, S2, RRR GI: +BS, NT, no distention Skin: Warm, dry Neuro: Cranial nerves II-XII grossly intact bilaterally. Motor grossly intact bilaterally. Bilateral 4/5 leg strength. Upper extremity strength intact. Preserved sensation to light touch of upper and lower extremities. Extremities: No edema. Scabbed superficial abrasions on right elbow and left knee Psych: Anxious Vital Signs: Vital Signs: Last Vital Signs Temp 98.2 F 02/12/25 15:21 Pulse 62 02/12/25 15:21 Resp 16 02/12/25 15:21 BP 141/74 H 02/12/25 15:21 Pulse Ox 99 02/12/25 15:21 O2 Del Method Room Air 02/12/25 07:05 BMI result Body Mass Index 28.7 Objective Data Active Medications Acetaminophen (Acetaminophen 325 Mg Tablet) 975 mg PO Q6H PRN PRN Reason: Pain, Mild 1-3,fever,headache Amlodipine Besylate (Amlodipine Besylate 5 Mg Tablet) 5 mg PO DAILY [facility]; Protocol Last Admin: 02/12/25 08:49 Dose: 5 mg Documented By: DARIA Atenolol (Atenolol 100 Mg Tablet) 100 mg PO DAILY [facility]; Protocol Last Admin: 02/12/25 08:49 Dose: 100 mg Documented By: DARIA Bupropion HCl (Bupropion Hcl Xl 300 Mg Tab.Er.24h) 300 mg PO DAILY [facility] Last Admin: 02/12/25 08:49 Dose: 300 mg Documented By: DARIA Calcium Carbonate (Calcium Carbonate 750 Mg Tab.Chew) 750 mg PO Q4H PRN PRN Reason: Heartburn Clonazepam (Clonazepam 0.5 Mg Tablet) 0.5 mg PO BID PRN PRN Reason: Anxiety Last Admin: 02/12/25 12:06 Dose: 0.5 mg Documented By: DARIA Enoxaparin Sodium (Enoxaparin Sodium 40 Mg/0.4 Ml Syringe) 40 mg SUBCUT Q24H [facility] Last Admin: 02/11/25 23:26 Dose: 40 mg Documented By: ROYCE Folic Acid (Folic Acid 1 Mg Tablet) 1 mg PO DAILY [facility] Stop: 02/13/25 11:39 Last Admin: 02/12/25 08:49 Dose: 1 mg Documented By: DARIA Hydromorphone HCl (Hydromorphone Hcl 1 Mg/Ml Syringe) 1 mg IVPUSH Q4H PRN; Protocol PRN Reason: Pain, Severe (Pain Scale 7-10) Last Admin: 02/12/25 12:55 Dose: 1 mg Documented By: DARIA Magnesium Hydroxide (Milk Of Magnesia 30 Ml Oral.Susp) 30 ml PO DAILY PRN PRN Reason: Constipation Melatonin (Melatonin 3 Mg Tablet) 6 mg PO BEDTIME PRN PRN Reason: Insomnia Multivitamins/Vitamin C (Multivitamin Tablet) 1 tab PO DAILY [facility] Stop: 02/13/25 11:39 Last Admin: 02/12/25 08:48 Dose: 1 tab Documented By: DARIA Ondansetron HCl (Ondansetron Hcl 4 Mg/2 Ml Vial) 4 mg IVPUSH Q8H PRN PRN Reason: Nausea and Vomiting Oxycodone HCl (Oxycodone Hcl Immed Release 5 Mg Tablet) 5 mg PO Q6H PRN PRN Reason: Pain, Moderate(Pain Scale 4-6) Last Admin: 02/12/25 10:07 Dose: 5 mg Documented By: DARIA Sodium Chloride (0.9 % Sodium Chloride Flush 3 Ml Syringe) 3 ml IVFLUSH QSHIFT [facility] Last Admin: 02/12/25 08:58 Dose: 3 ml Documented By: DARIA Thiamine HCl (Thiamine Hcl 100 Mg Tablet) 100 mg PO DAILY [facility] Last Admin: 02/12/25 08:48 Dose: 100 mg Documented By: DARIA Labs 02/12/25 08:19 02/12/25 08:19 Labs: Laboratory Results - last 24 hr 02/10/25 02/12/25 08:28 08:19 MCV 82.5 MCH 27.6 MCHC 33.5 RDW 14.5 Plt Count 268 MPV 10.6 Absolute Nucleated RBC 0.000 Nucleated RBC % (auto) 0.0 Anion Gap 13 Estim Creat Clear Calc 96.8 Estimated GFR > 60 Random Glucose 108 Calcium 9.6 A.phagocytophil DNA PCR NOT DETECTED Babesia microti DNA PCR NOT DETECTED Borrelia sp DNA (PCR) NOT DETECTED Borrelia miyamotoi (PCR) NOT DETECTED E.chaffeensis DNA (PCR) NOT DETECTED Tick-borne Disease PCR SEE NOTE Microbiology Microbiology Results: Microbiology 02/09/25 22:56 Gram Stain - Final Cerebrospinal Fluid Fluid Description - Final CSF Culture - Preliminary No growth after 2 days Assessment and Plan (1) Cervical spondylitic cord compression: Status: Acute Plan Patient is a 54-year-old male with a past medical history significant for history of alcohol use disorder (last drink in December), depression and hypertension, who presented to the ED after a fall last night at midnight. associated bilateral upper and lower extremity weakness and gait instability for the past 3 months. Cervical spondylitic cord compression - pt with lower extremity weakness and numbness and tingling in bilateral hands ongoing x3 weeks, worsening past few days prior to presentation; fell at home with 8-hour downtime - LP CSF showing high protein, though transverse myelitis and Guillain-Thicket syndrome ruled out; EMG of left leg, nerve conduction studies bilaterally of lower extremities negative - MRI of head and thoracic spine negative - MRI of cervical spine showing moderate to severe spinal canal stenosis - treated with Solu-Medrol 1 g IV x3 days, ending 02/12 with improvement in symptoms - neurology following - contacted [facility] neurosurgery and spoke with Diane Fong PA-C who presented case to Dr. Ivan Alvarenga; they reviewed images and said pt can follow up with them outpatient in 2-3 weeks for surgery - pt should be placed in a soft collar fall with rhabdo - CPK improving after IVF, 1363--> 285, resolved - treated with gentle IVF resuscitation - PT eval JARED, resolved - likely due to rhabdo - creatinine has normalized after IVF leukocytosis, likely reactive - follow CBC Subclinical hyperthyroidism - TSH 0.04, free T4 WNL at 1.13 - Follow up with PCP for repeat labs in 2-4 months HTN - conitnue atenolol depression/mood - clonazepam, bupropion, dextramphetamine alcohol use disorder - CIWA - supplemented with thiamine, folic acid, and multivitamin full code VTE prophy: lovenox Pt requires continued hospitalization for lower extremity weakness concerning in the setting of cervical spondylitic cord compression. Pt completed a 3 day course of high dose IV steroids; pt reports needs PT evaluation for possible discharge tomorrow. Quality Stroke Does the patient have a stroke diagnosis?: No VTE Prior VTE?: No VTE Risk Level:: Medical - moderate - high VTE Device Contraindication: Treatment Not Indicated VTE Drug Contraindication: N/A - Med Ordered
--- NOTE | 2025-02-12 16:27 | PC.NURSE ---
Store Room locked down stairs for soft neck collar, Clin sup notified.
[2025-02-12 19:10] VITALS: BP 132/61; PULSE 61; RESP 15; TEMP 36.1; O2SAT 95
[2025-02-13 03:15] VITALS: BP 140/67; PULSE 57; RESP 15; TEMP 36.2; O2SAT 90
[2025-02-13] MEDS: oxyCODONE HCl Immed Release 5 MG TABLET PO (04:41)
[2025-02-13] MEDS: buPROPion HCl XL 300 MG TAB.ER.24H PO (06:42)
--- NOTE | 2025-02-13 07:32 | P.PNIM_ITS ---
Subjective Subjective Date of Service: 02/13/25 Physical Exam 2 Vital Signs: Vital Signs: Last Vital Signs Temp 97.2 F 02/13/25 03:15 Pulse 57 02/13/25 03:15 Resp 15 02/13/25 03:15 BP 140/67 H 02/13/25 03:15 Pulse Ox 90 L 02/13/25 03:15 O2 Del Method Room Air 02/12/25 07:05 BMI result Body Mass Index 28.7 Objective Data Active Medications Acetaminophen (Acetaminophen 325 Mg Tablet) 975 mg PO Q6H PRN PRN Reason: Pain, Mild 1-3,fever,headache Amlodipine Besylate (Amlodipine Besylate 5 Mg Tablet) 5 mg PO DAILY [facility]; Protocol Last Admin: 02/13/25 06:42 Dose: 5 mg Documented By: GLO Atenolol (Atenolol 100 Mg Tablet) 100 mg PO DAILY [facility]; Protocol Last Admin: 02/13/25 06:42 Dose: 100 mg Documented By: GLO Bupropion HCl (Bupropion Hcl Xl 300 Mg Tab.Er.24h) 300 mg PO DAILY [facility] Last Admin: 02/13/25 06:42 Dose: 300 mg Documented By: GLO Calcium Carbonate (Calcium Carbonate 750 Mg Tab.Chew) 750 mg PO Q4H PRN PRN Reason: Heartburn Clonazepam (Clonazepam 0.5 Mg Tablet) 0.5 mg PO BID PRN PRN Reason: Anxiety Last Admin: 02/13/25 06:42 Dose: 0.5 mg Documented By: GLO Enoxaparin Sodium (Enoxaparin Sodium 40 Mg/0.4 Ml Syringe) 40 mg SUBCUT Q24H [facility] Last Admin: 02/12/25 23:41 Dose: 40 mg Documented By: WILLIAM Folic Acid (Folic Acid 1 Mg Tablet) 1 mg PO DAILY [facility] Stop: 02/13/25 11:39 Last Admin: 02/13/25 06:42 Dose: 1 mg Documented By: GLO Hydromorphone HCl (Hydromorphone Hcl 1 Mg/Ml Syringe) 1 mg IVPUSH Q3H PRN; Protocol PRN Reason: Pain, Severe (Pain Scale 7-10) Last Admin: 02/13/25 05:33 Dose: 1 mg Documented By: GLO Magnesium Hydroxide (Milk Of Magnesia 30 Ml Oral.Susp) 30 ml PO DAILY PRN PRN Reason: Constipation Melatonin (Melatonin 3 Mg Tablet) 6 mg PO BEDTIME PRN PRN Reason: Insomnia Last Admin: 02/12/25 20:05 Dose: 6 mg Documented By: WILLIAM Multivitamins/Vitamin C (Multivitamin Tablet) 1 tab PO DAILY [facility] Stop: 02/13/25 11:39 Last Admin: 02/13/25 06:42 Dose: 1 tab Documented By: GLO Ondansetron HCl (Ondansetron Hcl 4 Mg/2 Ml Vial) 4 mg IVPUSH Q8H PRN PRN Reason: Nausea and Vomiting Oxycodone HCl (Oxycodone Hcl Immed Release 5 Mg Tablet) 5 mg PO Q6H PRN PRN Reason: Pain, Moderate(Pain Scale 4-6) Last Admin: 02/13/25 04:41 Dose: 5 mg Documented By: GLO Sodium Chloride (0.9 % Sodium Chloride Flush 3 Ml Syringe) 3 ml IVFLUSH QSHIFT [facility] Last Admin: 02/13/25 06:42 Dose: Not Given Documented By: GLO Non-Admin Reason: Previously Administered Thiamine HCl (Thiamine Hcl 100 Mg Tablet) 100 mg PO DAILY [facility] Last Admin: 02/13/25 06:42 Dose: 100 mg Documented By: GLO Labs 02/12/25 08:19 02/12/25 08:19 Labs: Laboratory Results - last 24 hr 02/12/25 08:19 MCV 82.5 MCH 27.6 MCHC 33.5 RDW 14.5 Plt Count 268 MPV 10.6 Absolute Nucleated RBC 0.000 Nucleated RBC % (auto) 0.0 Anion Gap 13 Estim Creat Clear Calc 96.8 Estimated GFR > 60 Random Glucose 108 Calcium 9.6 Microbiology Microbiology Results: Microbiology 02/09/25 22:56 Gram Stain - Final Cerebrospinal Fluid Fluid Description - Final CSF Culture - Preliminary No growth after 2 days Quality Stroke Does the patient have a stroke diagnosis?: No VTE Prior VTE?: No VTE Risk Level:: Medical - moderate - high VTE Device Contraindication: Treatment Not Indicated VTE Drug Contraindication: N/A - Med Ordered
[2025-02-13] MEDS: oxyCODONE HCl Immed Release 5 MG TABLET 10 MG PO ×2 (07:57→12:00)
[2025-02-13 08:00] VITALS: BP 166/72; PULSE 50; RESP 14; TEMP 36.2; O2SAT 96
--- NOTE | 2025-02-13 09:31 | MHC.RECOVRN ---
Met with pt in after receiving an addiction consult from hospitalist. Pt reported he did not wish to discuss anything and did not have any issues or concerns in regards to his recovery. Pt stated he has abstained from alcohol since his last stay here and has not drank since December 2024. Working residence counselor has been a good distraction & help in his recovery journey. Pt does struggle with pain management and primary RN was notified to review PRN options for pain w/pt. Pt made aware that should he wishes to speak with someone from recovery, the ACS team is available and happy to check in at any time. Pt denies any recovery needs at this time.
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
--- NOTE | 2025-02-13 11:51 | PM.DS ---
DS: Providers Provider Date of Service: 02/13/25 Date of admission: 02/10/25 00:12 Date of discharge: 02/13/25 Primary care physician: Shauna Hale MD Consults: 02/10/25 00:17 Consult to Neurology Routine Consulting Provider: [facility] Reason for consultation: weakness lower extremities, hand numbness Has provider been notified: No 02/13/25 07:45 Addiction Medicine Provider Routine Consulting Provider: Addiction Covering Reason for consultation: AUD, requesting higher doses of opitaes per RN DS: Diagnosis Discharge Diagnosis (1) Cervical spondylitic cord compression: Status: Acute DS: Summary Hospital Course Hospital Course: Cervical spondylitic cord compression: Patient is a 54-year-old male with a past medical history significant for history of alcohol use disorder (last drink in December), depression and hypertension, who presented to the ED after a fall last night at midnight. associated bilateral upper and lower extremity weakness and gait instability for the past 3 months. Imaging and workup detailed as below. Acute on chronic 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 and cord compression with mild area of encephalomalacia noted on MRI. Treatment with Solu-Medrol has resulted in significant improvement. He was reassured and educated about this condition and was advised to follow-through with a neurosurgeon. We would tried to make an appointment for him with the next few days. His overall clinical picture is also complicated by history of alcohol use and he was advised to not drink alcohol. His anxiety/mood disorder needed to be treated specially during this time of going through surgery. He is advised to avoid any activity that could injuries neck any further including weight lifting or aggressive physical activity. A soft collar is also recommended until he was seen by Neurosurgery. Cervical spondylitic cord compression - pt with lower extremity weakness and numbness and tingling in bilateral hands ongoing x3 weeks, worsening past few days prior to presentation; fell at home with 8-hour downtime - LP CSF showing high protein, though transverse myelitis and Guillain-Montchanin syndrome ruled out; EMG of left leg, nerve conduction studies bilaterally of lower extremities negative - MRI of head and thoracic spine negative - MRI of cervical spine showing moderate to severe spinal canal stenosis - treated with Solu-Medrol 1 g IV x3 days, ending 02/12 with improvement in symptoms - neurology following - contacted [facility] neurosurgery and spoke with Diane Fong PA-C who presented case to Dr. Ivan Alvarenga; they reviewed images and said pt can follow up with them outpatient in 2-3 weeks for surgery - pt was placed in a soft collar until seen by Neurosurgery. -patient also started on thiamine and folic acid given his alcohol use disorder could be complicating his neuropathy fall with rhabdo- secondary to fall, resolved with IVF JARED, likely in the setting of rhabdomyolysis- resolved with IVF leukocytosis, likely reactive-normalized with IVF Subclinical hyperthyroidism - TSH 0.04, free T4 WNL at 1.13 - Follow up with PCP for repeat labs in 2-4 months HTN - conitnue atenolol depression/mood - clonazepam, bupropion, dextramphetamine alcohol use disorder - CIWA - supplemented with thiamine, folic acid, and multivitamin full code VTE prophy: rufina PT had seen the patient and recommended outpatient PT services Addiction Medicine was consulted for chronic pain and prior a UD (reports being sober since December) and patient deferred any services at this time Patient was given a C-collar at the time of discharge-advised to continue using that until seen by Neurosurgery outpatient settings Time spent discussing smoking cessation with patient: more than 10 minutes Status at Discharge Functional status at discharge: uses cane/walker Overall status at discharge: patient is progressing back to baseline Time Attestation Discharge Coordination Time (in mins): 45 Quality: Safe Use of Opioids Does Pt have an Active Cancer Diagnosis on the Problem List?: No Quality: Stroke Does the patient have a stroke diagnosis?: No Physical Exam Vital Signs: Vital Signs: Last Vital Signs Temp 97.1 F 02/13/25 08:00 Pulse 50 02/13/25 08:00 Resp 14 02/13/25 08:00 BP 166/72 H 02/13/25 08:00 Pulse Ox 96 02/13/25 08:00 O2 Del Method Room Air 02/13/25 08:00 BMI result Body Mass Index 28.7 DS: Data Data Completed and Pending Completed studies during hospitalization [Text1]: Procedures Detoxification Services for Substance Abuse Treatment (12/05/24) Discharge Plan Discharge Anticipated Discharge Date/Time: 02/13/25 11:31 Patient Disposition: Home, Self-Care Discharge Diagnosis: transverse myelitis ,Acute on chronic 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 and cord compression with mild area of encephalomalacia Referrals: [facility] Neurosurgery [Provider Group] - 1 Week [facility] Neurology [Outside] - 1 Week Shauna Hale MD [Primary Care Provider, Internal Medicine] - 1 Week Discharge Medications: New acetaminophen 325 mg Tablet 975 mg PO Q6H PRN (Reason: Pain, Mild 1-3,Fever,Headache) 15 Days Qty: 60 0RF amlodipine 5 mg Tablet 5 mg PO DAILY 30 Days Qty: 30 0RF Protocol: Hold for SBP< HOLD for SBP < : 90 oxycodone 5 mg Tablet 10 mg PO Q6H PRN (Reason: Pain, Moderate(Pain Scale 4-6)) 5 Days Qty: 7 0RF Rx Instructions: Partial Fill upon patient request. folic acid 1 mg Tablet 1 mg PO DAILY 30 Days Qty: 30 0RF multivitamin [Daily-Stevie] Tablet 1 tab PO DAILY 30 Days Qty: 30 0RF thiamine mononitrate (vit B1) 100 mg Tablet 100 mg PO DAILY 30 Days Qty: 30 0RF methocarbamol 750 mg tablet 750 mg PO Q8H 14 Days Qty: 42 0RF lidocaine 4 % adhesive patch,medicated 1 patch topical TID PRN (Reason: pain) 14 Days Qty: 5 3RF Continued dextroamphetamine-amphetamine 7.5 mg tablet 7.5 mg PO BID atenolol 100 mg tablet 100 mg PO DAILY clonazepam 0.5 mg tablet 0.5 mg PO BID PRN (Reason: anxiety) diphenoxylate-atropine 2.5-0.025 mg tablet 1 tab PO QID bupropion HCl 300 mg tablet extended release 24 hr 300 mg PO DAILY Discharge Orders: Discharge Order (Routine); Ordered 02/13/25 Ordered By: Alison Barksdale Diet: Low salt diet Activity on Discharge: He is advised to avoid any activity that could injuries neck any further i Stand Alone Forms: Patient Portal Discharge page Print Language: Lithuanian Care Plan Goals: Follow up with Neurosurgery outpatient Continue usage of C-collar until he has seen neurosurgery Advised and offered addiction Medicine Services-patient deferred-documented Advised patient to refrain from alcohol Advised the patient to follow up with PTOT recommendations Follow up with PCP within a week Follow up with Neurosurgery Follow-up with the addiction Medicine Services as needed For pain control-we have ordered Tylenol 975 q.6 scheduled Robaxin and lidocaine, advised him to seek care with the addiction which he deferred for chronic pain management Health Concerns: See above Plan of Treatment: See above Assessment: See above
--- NOTE | 2025-02-13 12:20 | MHC.CM.PN ---
DP: PT HAS BEEN MEDICALLY CLEARED FOR DC HOME, NO SERVICES. PT DECLINES STR AND HOME SERVICES. PT IS ADAMANT TO RETURN TO WORK SOON POSSIBLE. PT HAS OWN RIDE HOME.
[2025-02-16 07:08] LABS: Lyme Abs Screen <0.90 index
== END 2025-02-13 12:16 | disposition home or self-care (01) | DRG 347 ==
LOC: HO.ED 21:31 → HO.EDOVER 02-10 00:42 → HO.S3 02-10 02:05
PROVIDERS: Emergency Medicine; Registered Nurse Emergency; Admitting Provider Physician Assistant; Emergency Provider Emergency Medicine; PCP Internal Medicine; Visit Provider Student in an Organized Health Care Education/Training Program
DX: M47.12 Other spondylosis with myelopathy, cervical region (principal); M62.82 Rhabdomyolysis; G62.1 Alcoholic polyneuropathy; G93.89 Other specified disorders of brain; N17.9 Acute kidney failure, unspecified; F17.210 Nicotine dependence, cigarettes, uncomplicated; I10 Essential (primary) hypertension; F32.A Depression, unspecified; F10.90 Alcohol use, unspecified, uncomplicated; Z71.6 Tobacco abuse counseling; Z79.899 Other long term (current) drug therapy
CPT/HCPCS: 36415; 70450; 70551; 71046; 72125; 72131; 72156; 72157; 80048; 80053; 80307; 81003; 82140; 82550; 82607; 82746; 82945; 83735; 84157; 84425; 84439; 84443; 85025; 85027; 85652; 86140; 86617; 86618; 86780; 87015; 87070; 87205; 87389; 87468; 87469; 87478; 87483; 87484; 87502; 87635; 87798; 89051; 93005; 95886; 95910; 97116; 97162; 97166; 99285; A9585; J1171; J1650; J1885; J2003; J2270; J2919; J3360; J3411; J7120

== ENCOUNTER → 2025-02-09 07:53 | Outpatient (BNV) | payer OTHER, SELFPAY | PROVIDERS: Emergency Provider Emergency Medicine; PCP Internal Medicine; Visit Provider Internal Medicine Cardiovascular Disease | DX: Z04.3 Encounter for examination and observation following other accident (principal) | CPT/HCPCS: 93010 ==

== ENCOUNTER → 2025-02-09 08:28 | Outpatient (BNV) | payer OTHER, SELFPAY | PROVIDERS: Emergency Provider Emergency Medicine; PCP Internal Medicine; Visit Provider Radiology Body Imaging | DX: R53.1 Weakness (principal); M51.369 Other intervertebral disc degeneration, lumbar region without mention of lumbar back pain or lower extremity pain; M48.061 Spinal stenosis, lumbar region without neurogenic claudication; M50.30 Other cervical disc degeneration, unspecified cervical region; M99.61 Osseous and subluxation stenosis of intervertebral foramina of cervical region; Z04.3 Encounter for examination and observation following other accident | CPT/HCPCS: 70450; 70551; 71046; 72125; 72131 ==

== ENCOUNTER 2025-02-10 00:12 | Outpatient (BNV) | payer OTHER, SELFPAY | END 2025-02-10 20:21 | PROVIDERS: Admitting Provider Physician Assistant; Emergency Provider Emergency Medicine; PCP Internal Medicine; Visit Provider Student in an Organized Health Care Education/Training Program | DX: R53.1 Weakness (principal) | CPT/HCPCS: 70551 ==

== ENCOUNTER 2025-02-10 00:12 | Outpatient (BNV) | payer OTHER, SELFPAY | END 2025-02-11 12:24 | PROVIDERS: Admitting Provider Physician Assistant; Emergency Provider Emergency Medicine; PCP Internal Medicine; Visit Provider Radiology Diagnostic Radiology | DX: R53.1 Weakness (principal); M50.30 Other cervical disc degeneration, unspecified cervical region; M99.61 Osseous and subluxation stenosis of intervertebral foramina of cervical region | CPT/HCPCS: 72156; 72157 ==

== ENCOUNTER → 2025-02-10 00:12 | Outpatient (BNV) | payer OTHER, SELFPAY | PROVIDERS: Admitting Provider Physician Assistant; Emergency Provider Emergency Medicine; PCP Internal Medicine; Visit Provider Psychiatry & Neurology Neurology | DX: R53.1 Weakness (principal) | CPT/HCPCS: 99223 ==

== ENCOUNTER → 2025-02-10 00:12 | Outpatient (BNV) | payer OTHER, SELFPAY | PROVIDERS: Admitting Provider Physician Assistant; Emergency Provider Emergency Medicine; PCP Internal Medicine; Visit Provider Student in an Organized Health Care Education/Training Program | DX: M62.82 Rhabdomyolysis (principal); R53.1 Weakness; N17.9 Acute kidney failure, unspecified; R29.898 Other symptoms and signs involving the musculoskeletal system; W19.XXXA Unspecified fall, initial encounter | CPT/HCPCS: 99223; 99233; 99499 ==

== ENCOUNTER 2025-02-15 05:45 | Emergency (ER) | payer OTHER, SELFPAY ==
--- OUTSIDE RECORDS SUMMARY | 2023-08-19 08:00 | XMS_ITS ---
Author Organization [facility] Address [address] [place] [address] Care Team Providers Care Rn Acute Care Name Role Phone Jus Overton Primary Care Provider Unavaila Jus Garcia Jr Unavailable REASON FOR VISIT screening Encounters Encounter Location Date Provider Diagnosis [facility] [place] [address] [place] [id number] 08/19/2023 Jus Overton Jr Encounter for screening colonoscopy Z12.11 ; Colon polyps K63.5 and Adenoma of colon D12.6 Assessments Encounter Date Diagnosis (ICD Code) Assessment Notes Treatment Notes Treatment Clinical Notes Section Notes 08/19/2023 Encounter for screening colonoscopy (ICD-10 - Z12.11) 08/19/2023 Colon polyps (ICD-10 - K63.5) 08/19/2023 Adenoma of colon (ICD-10 - D12.6) Plan Of Treatment Next Appt Details Provider Name:Jus quintero Jr, 05/11/2025 03:15:00 PM, [address], [address], [place], [address], Progress Notes * MIKE JUÁREZDOB: [birth year] (54 yo M)Acc No.[id number]:08/19/2023 COLON WITH MAC Patient: MIKE NAJERA Provider: Fredrick Overton MD :1970 A ge:52 Y S ex:Male Date:08/19/2023 Address:[address] [place] [address], [place], [place] Pcp:Jus Overton Subjective: * Chief Complaints: * 1 . Screening. * Medical History: Objective: * Vitals: Assessment: * Assessment: 1. E ncounter for screening colonoscopy - Z12.11 (Primary) 2 . C olon polyps - K63.5 3 . A denoma of colon - D12.6 Plan: * Treatment: * Procedure Codes: 4 5380 COLONOSCOPY AND BIOPSY * * The named appointment provid er may or may not be the originator of this progress note, and it is not deemed complete until electronically signed by the appointment provider. Sign off status: Pending * Provider: Fredrick Overton MD Date: 0 08/19/2023 Generated for Mars ashford/Marlene/Anaitting on: 04/17/2024 06:19 AM EST
--- OUTSIDE RECORDS SUMMARY | 2025-02-09 23:59 | XMS_ITS | Continuity of Care Document ---
Author Organization [facility] Address [address] [place] [address]- [facility] Name Relationship Address Phone YOLANDA JUÁREZ father Unknown Unavailabl e YOLANDA JUÁREZ SR father Unknown Unavail able Care Team Providers Care Tower Control Operator Name Role Phone Job Robison MD Primary Care Physician Encounter [facility] NBR [id number] Date(s): 02/02/25 - 02/09/25 [facility] [address] [address]- Attending Physician: Margret Arnold MD Encounter Type: Office Visit Allergies, Adverse Reactions, Alerts Substance Criticality Severity Reaction Reaction Severity Status Augmentin Active Functional Status Functional Status Assessment Assessment Assessment Component Result Effecti ve Date Disability status [CUBS] I'm Thriving - no identified disability 02/02/25 Do you need any poppy tional assistance or accommodations during your visit No 02/02/25 Difficulty Reading O r Writing No 02/02/25 Are you deaf, or do you have serious difficulty hearing No 02/02/25 Difficulty communica ting in usual language No 02/02/25 Because of a physica l, mental, or emotional condition, do you have difficulty doing errands alone such as visiting a physician's office or shopping No 02/02/25 Do you have difficul ty dressing or bathing No 02/02/25 Are you blind, or do you have serious difficulty seeing, even when wearing glasses No 02/02/25 Do you have serious difficulty walking or climbing stairs Yes 02/02/25 Because of a physica l, mental, or emotional condition, do you have serious difficulty concentrating, remembering, or making decisions No 02/02/25 Immunizations Given and Recorded Vaccine Date Status Refusal Reason influenza virus vaccine, inactivated 02/19/24 Aguila rded influenza virus vaccine, inactivated 01/14/23 Aguila rded influenza virus vaccine, inactivated 03/03/22 Aguila rded influenza virus vaccine, inactivated 11/13/16 Aguila rded influenza virus vaccine, inactivated 12/20/15 Aguila rded influenza virus vaccine, inactivated 03/20/15 Aguila rded influenza virus vaccine, inactivated 01/31/14 Aguila rded SARS-CoV-2 mRNA (rttuawi-zrpk-koifk) vax 08/03/21 Recorded SARS-CoV-2 (COVID-19) mRNA BNT-162b2 vac 12/31/20 Recorded SARS-CoV-2 (COVID-19) mRNA BNT-162b2 vac 12/07/20 Recorded Medications atenolol 100 mg oral tablet 1 tablet, By Mouth, Daily, # 90 tablet, 3 Refills, Maintenance, 04/28/22 7:08:00 AM EST, [id number] Start Date: 04/28/22 Status: Ordered Medication Dispense Status: Completed Quantity: 90.0 Unit: tablet Total Allowed Fills: 1 Fills Dispensed: 0 atenolol 100 mg oral tablet See Instructions, TAKE 1 TABLET BY MOUTH EVERY DAY, # 90 tablet, 0 Refills, Maintenance, 02/02/25 1:47:00 PM EDT, [facility] #[id number], 168, cm, 02/02/25 13:36:00 EDT, Height Start Date: 02/02/25 Status: Ordered Medication Dispense Status: Completed Quantity: 90.0 Unit: tablet Total Allowed Fills: 1 Fills Dispensed: 0 KLONopin Tablet = 1 mg, By Mouth, 2 times a day, 0 Refills, Maintenance, 04/22/11 2:42:21 PM EST Start Date: 04/22/11 Status: Ordered Medication Dispense Status: Completed Total Allowed Fills: 1 Fills Dispensed: 0 [place] 900 mg, By Mouth, Daily, Maintenance, 04/22/11 2:40:03 PM EST Start Date: 04/22/11 Status: Ordered Medication Dispense Status: Completed Total Allowed Fills: 1 Fills Dispensed: 0 Methadone = 10 mg, By Mouth, 3 times a day, PRN Pain , Mild, 0 Refills, Maintenance, 04/22/11 2:42:46 PM EST Start Date: 04/22/11 Status: Ordered Medication Dispense Status: Completed Total Allowed Fills: 1 Fills Dispensed: 0 Sertraline = 75 mg, By Mouth, Daily, 0 Refills, Maintenance, 05/06/11 7:03:18 PM EST Start Date: 05/06/11 Status: Ordered Medication Dispense Status: Completed Total Allowed Fills: 1 Fills Dispensed: 0 tiZANidine 4 mg oral tablet 4 mg, 1, tablet, By Mouth, 3 times a day, # 90 tablet, Refills 0, Tot. Refills 0, Maintenance, 02/02/25 1:49:00 PM EDT, Route to Pharmacy Electronically, [id number], Partial fill upon patient request if the prescription is for a schedule II opioid drug., 168, cm, 02/02/25 13:36:00 EDT, Height Start Date: 02/02/25 Stop Date: 03/04/25 Status: Ordered Medication Dispense Status: Completed Quantity: 90.0 Unit: tablet Total Allowed Fills: 1 Fills Dispensed: 0 Mental Status Mental Status Assessment Assessment Assessment Component Result Effecti ve Date Patient Health Questionnaire 2 item (PHQ-2) total score [Reported] 0 02/02/25 Problem List Condition Confirmation Course Effective Dates Status Health St atus Informant Essential hypertension Confirmed Active Vital Signs Most recent to oldest [Reference Range]: 1 2 Height 168 cm (02/02/25 1:36 PM) 168 cm (02/02/25 1:33 PM) Weight 81.0 kg (02/02/25 1:33 PM) Oxygen Saturation [94-100 %] 98 % (02/02/25 1:33 PM) Pulse Rate [55-90 bpm] 74 bpm (02/02/25 1:33 PM) Body Mass Index [18.5-24.99 kg/m2] 28.7 kg/m2 *H* (02/02/25 1:33 PM) Blood Pressure [90-138/55-84 mm Hg] 160/ 85mm Hg *H* (02/02/25 1:36 PM) 169/98mm Hg *H* (02/02/25 1:33 PM) Temperature [96.8-100.4 DegF] 98.1 DegF (02/02/25 1:33 PM) Mode of Delivery (Oxygen) Room air (02/02/25 1:33 PM) Blood pressure sites Arm, left (02/02/25 1:33 PM) Temperature Route Temporal (02/02/25 1:33 PM) Weight Obtained Via Standing scale (02/02/25 1:33 PM) Social History Social History Type Response Smoking Status 10 or more cigarette s (1/2 pack or more)/day in last 30 days entered on: 02/02/25 Sex Sex Representation Male (finding) Note * Marina Gomes: PERFORM Event Display: Patient Education/Instruction Authored Date: [id number] Ambulatory Adult Visit Summary [facility] [address] [address] Name: MIKE JUÁREZ : 1970?? Visit: 02/02/2025 13:21?? Ambulatory Visit Instructions ?? Your Care Team Primary Care Provider Job Robison MD? This Visit Provider Margret Arnold MD Your Diagnosis Essential (primary) hypertension Acute lumbar back pain Vitals Signs Temperature: 98.1 DegF Height: 168 cm Pulse Rate: 74 bpm Weight: 81 kg Systolic Blood Pressure:??160 mm Hg??High Body Mass Index:??28.7 kg/m2??High Diastolic Blood Pressure:??85 mm Hg??High Body surface area: 1.94 Oxygen Saturation: 98 % ?? Medications The list below reflects the information in our records and provided by you today along with any changes made during this visit. Please continue your medications until treatment is completed or stopped by your provider. If this is different from the information you have or there are other questions,please contact the prescribing provider. What How Much When Instructions New Tizanidine (tiZANidine 4 mg oral tablet) 1 tab(s) Oral 3 times a day Duration: 30 Days Ordering Physician: Margret Arnold MD [id number] Unchanged Atenolol (atenolol 100 mg oral tablet) See instructions Special Instructions: TAKE 1 TABLET BY MOUTH EVERY DAY Ordering Physician: Margret Arnold MD ?? [id number] Unchanged Atenolol (atenolol 100 mg oral tablet) 1 tab(s) Oral Daily Ordering Physician: Job Robison MD Unchanged Clonazepam (KLONopin Tablet) 1 Milligram Oral Twice a day Unchanged [place] 900 Milligram Oral Daily Unchanged Methadone 10 Milligram Oral 3 times a day as needed for Pain , Mild Unchanged Sertraline 75 Milligram Oral Daily Pharmacy Information [id number]: [address] [place] [id number] [phone] Medications and Immunizations Administered Medications Given During Visit No medications given during this visit.?? Allergies (NKA means No Known Allergies) Augmentin Common Emergency Awareness Tips IS IT A STROKE? Act FAST and Check for these signs: FACE Does the face look uneven? ARM Does one arm drift down? SPEECH Does their speech sound strange? TIME Call at any sign of stroke ?? Heart Attack Signs Chest discomfort: Most heart attacks involve discomfort in the center of the chest and lasts more than a few minutes, or goes away and comes back. It can feel like uncomfortable pressure, squeezing, fullness or pain. Discomfort in upper body: Symptoms can include pain or discomfort in one or both arms, back, neck, jaw or stomach. Shortness of breath: With or without discomfort. Other signs: Breaking out in a cold sweat, nausea, or lightheaded. Remember, MINUTES DO MATTER. If you experience any of these heart attack warning signs, call to get immediate medical attention! ?? Smoking can increase your chances of developing chronic health problems and can cause harmful effects to other family members in your house. If you smoke, you are strongly encouraged to quit. Please call [employer] [facility] at [phone] or [phone] ([phone]) or log in to [email or web address] for referrals to smoking cessation programs. ?? The National Suicide Prevention Hotline is available 27/10 if you or someone you know needs to find a reason to keep living. By calling 0-926-899-talk (3543) you'll be connected to a skilled, trained counselor at a crisis center in your area. [facility] Health Portal You can view and manage your care through the patient portal or by using a health care sharee of your choosing. [employer] is a website that allows you to securely view your medical information including your hospital discharge summary, office visit summaries, medications and follow-up visits. You can also request appointments, renew medications, and request access to your medical information using a health care sharee of your choosing, or just ask a question. You can enroll at [email or web address] or register during your next office visit. [facility], in keeping with [facility] guidance, no longer requires face masks for staff, patientsor visitors in most situations. Similiar to time spent indoors at other locations, there is the chance that you were exposed to repiratory viruses during your time with us (such as flu or COVID-19). If you develop symptoms concerning for a viral respiratory infection, please seek testing (and treatment if indicated) from your medical provider or home test kit. ?? Disclaimer: The information provided is of a general nature and is intended to be used in conjunction with the recommendations and advice of your health care practitioner. Every effort has been made to ensure that the information provided is accurate and complete at the time it is provided to you however, as your needs change, or, as new information becomes available, different or additional instructions may be required. ?? If you have questions, please consult with your primary care provider or pharmacist, as appropriate. This information is not intended to serve as substitution for assessment and evaluation by a qualified health care provider. If you do not have a primary care provider, you may find a [facility] provider by calling [facility] at [phone]. Patient Care team information Care Team Personnel Name: Job Robison MD Position: [facility] Physician - Primary Care Member Role: PCP Address: [address] [place] [id number]- Telecom: Care Team Related Persons Name: YOLANDA JUÁREZ Name: YOLANDA JUÁREZ Insurance Providers Guarantor name: ANA MARIA Health Plan Information #: 1 Payer: [facility] FF NON P HMO P Payer Identifier: NA Member Number: [id number] Group Number: [id number] Subscriber Identifier: [id number] Relationship to Subscriber: self Coverage Type: Other Private Insurance Coverage Verification Date: Telecom: NA Address:
--- OUTSIDE RECORDS SUMMARY | 2025-02-13 06:40 | XMS_ITS | Encounter Summary ---
Author Organization [facility] Address [address] [place] [address] Care Team Providers Care Side Show Entertainer Name Role Phone Unavailable Primary Care Provider Unavailabl e Encounter Details Date Type Department Care Team (Late st Contact Info) Description 02/13/2025 6:40 AM EST Ancillary Procedure [facility] Radiology [address] [place] [address] Provider, File Room Arrived Social History Tobacco Use Types Packs/Day Years Used Date Smoking Tobacco: Never Assessed Sex and Gender Information Value Date Recorded Sex Assigned at Not on file Legal Sex Male 6:45 PM EST Gender Identity Not on file Sexual Orientation Not on file documented as of this encounter Plan of Treatment Not on file documented as of this encounter Procedures Procedure Name Priority Date/Time Associated Diagnosis Comments MR SPINE ARCHIVE FOR REFERENCE ONLY Routine 02/13/2025 6:38 AM EST documented in this encounter Results * MR Spine Archive for Reference Only (02/13/2025 6:38 AM EST) Narrative LEODAN - 02/13/2025 6:38 AM EST This study has been auto finalized and does not contain a result. us File Room Provider IMG DIGITIZE FILMS Final Resu lt LEODAN [phone] documented in this encounter Visit Diagnoses Not on filedocumented in this encounter
--- OUTSIDE RECORDS SUMMARY | 2025-02-13 06:45 | XMS_ITS | Encounter Summary ---
Author Organization [facility] Address [address] [place] [address] Care Team Providers Care Polysomnographer Name Role Phone Unavailable Primary Care Provider Unavailabl e Encounter Details Date Type Department Care Team (Late st Contact Info) Description 02/13/2025 6:45 AM EST Ancillary Procedure [facility] Radiology [address] [place] [address] Provider, File Room Arrived Social History Tobacco [...] SPINE ARCHIVE FOR REFERENCE ONLY Routine 02/13/2025 6:39 AM EST documented in this encounter Results * MR Spine Archive for Reference Only (02/13/2025 6:39 AM EST) Narrative LEODAN - 02/13/2025 6:39 AM EST This study has been auto finalized and does not contain a result. us File Room Provider IMG DIGITIZE FILMS Final Resu lt LEODAN [phone] documented in this encounter Visit Diagnoses Not on filedocumented in this encounter
[2025-02-15 05:49] VITALS: BP 120/73; PULSE 69; RESP 14; TEMP 36.6; O2SAT 93; BMI 27.8
--- OUTSIDE RECORDS SUMMARY | 2025-02-15 06:19 | XMS_ITS | Clinical Summary ---
Author Organization [facility] ity Address [address] [place] [address] Care Team Providers Care Breast Splitter Name Role Phone Unavailable Primary Care Provider [...] Depression Screening 04/06/2024 COVID-19 Vaccine (1 - 2024-2 6 season) 2024 Influenza Vaccine (#1) 2024 RSV [...]
--- OUTSIDE RECORDS SUMMARY | 2025-02-15 06:20 | XMS_ITS | Patient Health Record ---
Author Organization [facility] Address [address] [place] [address] Care Team Providers Care Ground Operations Supervisor Name Role Phone Jus Overton Primary [...] Status Risk Notes Problem Colon cancer screening (896924561) Colon cancer screening (Z12.11) Active confirmed Problem History of polyp of colon (situation) (931739234) Personal history of colonic polyps (Z86.010) Active confirmed Problem Irritable bowel syndrome with diarrhea (089893274) Irritable bowel syndrome with diarrhea (K58.0) Active confirmed Problem Juvenile polyposis syndrome (8118040) Juvenile polyposis syndrome (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 Encounters Encounter Location Date Provider Diagnosis [facility] [address] [place] [phone] 03/01/2024 Jus Overton Jr Irritable bowel syndrome with diarrhea K58.0 [facility] [address] [address] 01/02/2025 Jus Overton Jr Irritable bowel syndrome [...] Provider Name:Jus quintero Jr, 05/11/2025 03:15:00 PM, [address] [place] [address], [address], [place], [address], Insurance Providers Payer Name Payer Address Payer Phone Subscriber Number Group Number Insured Name Patient Relationship to Insured Coverage Start Date Coverage End Date [facility] [address] [place] [phone] [id number] MIKE JUÁREZ Self - patient is the insured 3 Medical (General) History Medical History History ICD Code colonoscopy 04/26, tubular ad enoma, three-year followup, history of juvenile polyposis kidney disease alcohol abuse bipolar disorder hypertension Covid 19 infection 03/25 Surgical History Surgery Date(Month/Year) colectomy right knee arthroscopy ACL knee surgery
--- OUTSIDE RECORDS SUMMARY | 2025-02-15 06:20 | XMS_ITS | Clinical Summary ---
Author Organization [facility] Address [address] [place] [id number] Care Team Providers Care Ceiling Cleaner Name Role Phone Unavailable Primary Care Provider Unavailabl e Encounters Date Type Department Care Team Description 02/13/2025 6:45 AM EST Ancillary Procedure [facility] [address] [place] [address] Provider, File Room Arrived 02/13/2025 6:40 AM EST Ancillary Procedure [facility] [address] [place] [address] Provider, File Room Arrived from Last 3 Months Social History Tobacco Use Types Packs/Day Years Used Date Smoking Tobacco: Never Assessed Sex and Gender Information Value Date Recorded Sex Assigned at Not on file Legal Sex Male 6:45 PM EST Gender Identity Not on file Sexual Orientation Not on file Plan of Treatment Health Maintenance Due Date Last Done Comments Hepatitis C Virus Screening 1970 HIV Screening 11/27/1983 DTaP/Tdap/Td Vaccines (1 - Tdap) 1989 Hepatitis B Vaccines (1 of 3 - 19+ 3-dose series) 11/05 Pneumococcal Vaccines 50+ (1 of 1 - PCV) 2020 Zoster (Shingles) Vaccine (1 of 2) 2020 COVID-19 Vaccine (1 - 2023- season) 2024 RSV Vaccine 50 years and old er and Patients (1 - 1-dose 75+ series) 2045 Procedures Procedure Name Priority Date/Time Associated Diagnosis Comments MR SPINE ARCHIVE FOR REFERENCE ONLY Routine 02/13/2025 6:39 AM EST MR SPINE ARCHIVE FOR REFERENCE ONLY Routine 02/13/2025 6:38 AM EST from Last 3 Months Results * MR Spine Archive for Reference Only (02/13/2025 6:39 AM EST) Only the most recent of2 resultswithin the time period is included. Narrative LEODAN - 02/13/2025 6:39 AM EST This study has been auto finalized and does not contain a result. us File Room Provider IMG DIGITIZE FILMS Final Resu lt LEODAN [phone] from Last 3 Months
[2025-02-15 06:43] VITALS: BP 112/64; PULSE 69; RESP 14; TEMP 36.4; O2SAT 98
--- NOTE | 2025-02-15 07:14 | ED_ITS ---
HPI - General Adult General Chief complaint: Back Pain/Injury Stated complaint: Back Pain Time Seen by Provider: 02/15/25 06:06 Source: patient and EMS Mode of arrival: EMS Limitations: no limitations History of Present Illness ED Provider: HPI narrative: 54-year-old male with a past medical history significant for history of alcohol use disorder (last drink in December), depression and hypertension was just discharged for neck and back issues, he has follow up with a [facility] for evaluation of his spinal stenosis of the endocervical canal, he is wearing soft brace according to neurology recommendations, we will supposed to take cyclobenzaprine, states has been taking Tylenol without much relief, states Dilaudid helpedme when I was admitted , states he is having a hard time walking at home and he walks with a unsteady gait this has been going on since November 2024. Related Data Home Medications ?Medication ?Instructions ?Recorded ?Confirmed atenolol 100 mg tablet 100 mg PO DAILY 12/05/2410/28 bupropion HCl 300 mg 24 hr tablet, 300 mg PO DAILY 04/3002/10/25 extended release clonazepam 0.5 mg tablet 0.5 mg PO BID PRN anxiety 02/10/25 dextroamphetamine-amphetamine 7.5 7.5 mg PO BID attent ion deficit 12/05/24 02/10/25 mg tablet hyperactivity disorder diphenoxylate-atropine 2.5 1 tab PO QID loose stool 02/10/25 mg-0.025 mg tablet Previous Rx's ?Medication ?Instructions ?Recorded acetaminophen 325 mg tablet 975 mg (3 x 325 mg) PO Q6H PRN 02/13/25 Pain, Mild 1-3,Fever,Headache 15 days #60 tabs amlodipine 5 mg tablet 5 mg PO DAILY 30 days #30 ta bs 02/13/25 folic acid 1 mg tablet 1 mg PO DAILY 30 days #30 ta bs 02/13/25 lidocaine 4 % topical patch 1 patch topical TID PRN pa in 14 02/13/25 days #5 ea methocarbamol 750 mg tablet 750 mg PO Q8H 14 days #42 tabs 02/13/25 multivitamin (Daily-Stevie tablet) 1 tab PO DAILY 30 day s #30 tabs 02/13/25 thiamine mononitrate (vit B1) 100 100 mg PO DAILY 30 d ays #30 tabs 02/13/25 mg tablet Allergies Allergy/AdvReac Type Severity Reaction Status Date / Time amoxicillin (Augmentin) AdvReac Severe Nausea and Verified 02/15/25 05:55 Vomiting clavulanic acid (Augmentin) AdvReac Severe Nausea and Verified 02/15/25 05:55 Vomiting NSAIDS Allergy Intermediate renal Uncoded 02/09/25 08:03 insuff Review of Systems 2 Constitutional: Constitutional: Reports as per HPI [facility] Past Medical History Medical History Alcohol use disorder History of COVID-19 History of ADHD Depression HTN (hypertension) Surgical History H/O colonoscopy Hx of colectomy Hx of left inguinal hernia repair History of repair of ACL Hx of arthroscopy of knee Social History Social History Household Members: None Household Members Other:: PET Housing: Condominium Do you presently have visiting nurse or other home services: No Alcohol intake: former Patient Tobacco Use Status: Current everyday Tobacco user Tobacco use type: Cigarette Cigarette Packs Per Day: 0.5 Cigarettes Per Day: 15 Smoked in Last 30 Days: Yes e-Cigarette/Vaping Use: Never Used Second Hand Smoke Exposure: Yes Use of substances other than those prescribed or required for medical reasons: No Advance Directives: No Advance Directives Information Provided: Yes service: No Physical Exam ED Exam Exam: General: Appears somewhat older than stated age ? ?no scleral icterus no facial or skull trauma ? soft collar in place ? ?CV: S1-S2 ? ?Resp: ?No wheezing rales rhonchi no stridor moving air well ? Abd: ?Bowel sounds are present, no tenderness no rebound no rigidity ? ?MSK: FROM, strength 5/5 all extremities ? Skin: No jaundice ? ?Neuro: ?Alert and oriented x3, moving upper and lower extremities symmetrically, no obvious facial asymmetry noted, cranial nerves 2-12 intact, no nystagmus horizontal vertigo, on the gurney I did not appreciate dysmetria on upper extremities Vital Signs: Vital Signs - 24 hr 02/15/25 05:49 02/15/25 06:43 Temperature 97.8 F 97.5 F Pulse Rate 69 69 Respiratory Rate 14 14 Blood Pressure 120/73 112/64 Pulse Oximetry 93 98 Oxygen Delivery Method Room Air Room Air BMI result Body Mass Index 27.8 Medications Administered Discontinued Medications Generic Name Dose Route Start Last Admin Trade Name Kenny PRN Reason Stop Dose Admin Cyclobenzaprine HCl 5 mg 02/15/25 07:17 02/15/25 07:25 Cyclobenzaprine Hcl 5 Mg Tablet PO 02/15/25 07:18 5 mg ONCE ONE Administration Acetaminophen 1,000 mg in 100 mls @ 400 mls/hr 02/15/25 07:17 02/15/25 08:11 Ofirmev IV 02/15/25 07:31 Infused ONCE ONE Infusion Medical Decision Making Medical Decision Making MDM Narrative: 7:25 AM 02/15/2025 (Dr. 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 along with central and peripheral nervous system issues related to alcohol use disorder, he is going to see neurosurgeon on outpatient basis for his neck, I have discussed with the patient that I am not going to be administering any narcotic or benzodiazepine medications to him in the emergency department at this time I will provide with IV Tylenol, I can dose him with Flexeril, and I will get physical therapy to evaluate him, I spoke to patient about potential SNF placement if he can not function he states he is safe at home but if he is in the ER just a few days after discharge I questioned that. And as he had rhabdomyolysis, JARED in the past we will repeat some of his blood work 8:16 AM 02/15/2025 (Dr. Dinesh Villalta): Patient states actually he feels better he would like to be discharged with a work note to return to work today, he states the spasm is better Differential Diagnosis Differential Diagnoses: The differential diagnosis associated with the presentation includes (Cerebellar stroke, cerebellar ataxia relating to alcohol use, peripheral neuropathy, spinal cord compression) Admission/Observation Consideration of admission/observation: Escalation of care including admission/observation considered Lab Data MDM Lab Attestation statement: I reviewed the patient's lab results. 02/15/25 07:42 02/15/25 07:42 Labs: Lab Results 02/15/25 Range/Units 07:42 WBC 11.8 H (4.8-10.8) X10*3/uL RBC 5.44 (4.60-5.80) X10*6/uL Hgb 15.4 (14.0-18.0) g/dl Hct 45.4 (42.0-52.0) % MCV 83.5 (80.0-98.0) fL MCH 28.3 (27.0-33.0) pg MCHC 33.9 (31.0-36.0) g/dl RDW 14.6 (11.0-16.0) % Plt Count 321 (160-400) X10*3/uL MPV 10.2 (9.4-12.4) fL Immature Gran % (Auto) 0.5 H (0.0-0.4) % Neut % (Auto) 67.3 (45-73) % Lymph % (Auto) 22.1 (20-40) % [place] % (Auto) 7.7 (2-11) % Eos % (Auto) 2.2 (0-4) % Baso % (Auto) 0.2 (0-2) % Lymph # (Auto) 2.6 (1.2-4.9) X10*3/uL [place] # (Auto) 0.9 (0.1-1.2) X10*3/uL Eos # (Auto) 0.3 (0.0-0.4) X10*3/uL Baso # (Auto) 0.0 (0.0-0.2) X10*3/uL Abs Immat Gran (auto) 0.06 H (0.00-0.03) X10*3/uL Absolute Neuts (auto) 7.9 (2.0-8.3) x10*3/uL Absolute Nucleated RBC 0.000 (0.0-0.012) X10*3/uL Nucleated RBC % (auto) 0.0 (0.0-0.2) /100WBC Sodium 140 (135-145) mmol/L Potassium 3.7 (3.3-5.1) mmol/L Chloride 105 (96-108) mmol/L Carbon Dioxide 27 (22-29) mmol/L Anion Gap 12 (12-20) BUN 13 (9-16) mg/dL Creatinine 1.03 (0.5-1.4) mg/dL Estim Creat Clear Calc 80.5 Estimated GFR > 60 Random Glucose 126 H (60-115) mg/dL Calcium 9.1 (8.4-10.2) mg/dL Total Bilirubin 0.6 (0.0-1.0) mg/dL AST 33 (5-37) U/L ALT 51 H (0-40) U/L Alkaline Phosphatase 73 (39-117) U/L Total Creatine Kinase 33 L (38-174) U/L Total Protein 6.2 L (6.5-8.0) g/dL Albumin 3.7 (3.5-5.0) g/dL Lipase 11 (8-78) U/L Discharge Plan Discharge Clinical Impression: Weakness, Low back pain Additional Instructions: Your workup today has been reassuring, you can continue taking Tylenol and cyclobenzaprine as you were prescribed during her prior admission and to have follow up with neurosurgery for your neck at [facility] Make sure to do gentle stretching at home, be careful about walking and not falling down, do not mix cyclobenzaprine with alcohol and marijuana or drive while taking this medication Prescriptions: No Action dextroamphetamine-amphetamine 7.5 mg tablet 7.5 mg PO BID atenolol 100 mg tablet 100 mg PO DAILY clonazepam 0.5 mg tablet 0.5 mg PO BID PRN (Reason: anxiety) diphenoxylate-atropine 2.5-0.025 mg tablet 1 tab PO QID bupropion HCl 300 mg tablet extended release 24 hr 300 mg PO DAILY acetaminophen 325 mg Tablet 975 mg PO Q6H PRN (Reason: Pain, Mild 1-3,Fever,Headache) 15 Days Qty: 60 0RF amlodipine 5 mg Tablet 5 mg PO DAILY 30 Days Qty: 30 0RF Protocol: Hold for SBP< HOLD for SBP < : 90 folic acid 1 mg Tablet 1 mg PO DAILY 30 Days Qty: 30 0RF multivitamin [Daily-Stevie] Tablet 1 tab PO DAILY 30 Days Qty: 30 0RF thiamine mononitrate (vit B1) 100 mg Tablet 100 mg PO DAILY 30 Days Qty: 30 0RF methocarbamol 750 mg tablet 750 mg PO Q8H 14 Days Qty: 42 0RF lidocaine 4 % adhesive patch,medicated 1 patch topical TID PRN (Reason: pain) 14 Days Qty: 5 3RF Stand Alone Forms: Work/School Release Print Language: Kiswahili
[2025-02-15 07:48] LABS: MANUAL DIFF FLAG NO
[2025-02-15 07:50] LABS: White Blood Count 11.8 X10*3/uL (4.8-10.8)
[2025-02-15 07:51] LABS: Hematocrit 45.4 % (42.0-52.0); Hemoglobin 15.4 g/dl (14.0-18.0); Imm Gran Abs Auto 0.06 X10*3/uL (0.00-0.03); Imm Gran Pct Auto 0.5 % (0.0-0.4); Lymphocytes Absolute Auto 2.6 X10*3/uL (1.2-4.9); Mean Corpuscular HGB Conc 33.9 g/dl (31.0-36.0); Mean Corpuscular Hemoglobin 28.3 pg (27.0-33.0); Mean Corpuscular Volume 83.5 fL (80.0-98.0); NRBC Abs Auto 0.000 X10*3/uL (0.0-0.012); NRBC Pct Auto 0.0 /100WBC (0.0-0.2); Platelet Count 321 X10*3/uL (160-400); Red Blood Count 5.44 X10*6/uL (4.60-5.80)
[2025-02-15 08:05] LABS: Alanine Aminotransferase 51 U/L (0-40); Albumin Level 3.7 g/dL (3.5-5.0); Alkaline Phosphatase 73 U/L (39-117); Anion Gap 12 (12-20); Aspartate Amino Transferase 33 U/L (5-37); Blood Urea Nitrogen 13 mg/dL (9-16); Calcium 9.1 mg/dL (8.4-10.2); Carbon Dioxide 27 mmol/L (22-29); Chloride 105 mmol/L (96-108); Creatinine Clr Calc Pharmacy 80.5; Estimated Glomerular Filt Rate > 60; Lipase 11 U/L (8-78); Potassium 3.7 mmol/L (3.3-5.1); Sodium 140 mmol/L (135-145); Total Protein 6.2 g/dL (6.5-8.0)
--- NOTE | 2025-02-15 08:24 | PC.NURSE ---
Patient states feels better and is requesting discharge. States wants to go back to work today. MD aware stating he will call in script for muscle relaxer
[2025-02-15 08:25] VITALS: BP 112/64; PULSE 69; RESP 14; TEMP 36.4; O2SAT 98
--- NOTE | 2025-02-15 08:36 | MHC.CM.ED ---
Received case management consult from Dr Villalta. Patient d/c'd home before being seen by CM.
== END 2025-02-15 08:25 | disposition home or self-care (01) ==
PROVIDERS: Emergency Provider Emergency Medicine; PCP Nurse Practitioner Family
DX: R53.1 Weakness (principal); M54.50 Low back pain, unspecified
CPT/HCPCS: 36415; 80053; 82550; 83690; 85025; 96365; 99284; J0131

== ENCOUNTER 2025-03-05 01:25 | Emergency (ER) | payer OTHER, SELFPAY ==
[2025-03-05] VITALS (12 sets, daily range): BP systolic 129–191; BP diastolic 66–115; PULSE 62–105; RESP 14–22; TEMP 36.7–36.9; O2SAT 97–100; BMI 24.2
--- OUTSIDE RECORDS SUMMARY | 2025-03-05 02:29 | XMS_ITS | Patient Health Record ---
Author Organization [facility] Address [address] [place] [address] Care Team Providers Care Transportation Dispatch Manager Name Role Phone Jus Overton Primary Care Provider Unavaila Jus Garcia Jr Unavailable Allergies Allergen (clinical drug ingredient) Drug/Non Drug Allergy documented on EMR Reaction Allergy Type Onset Date Status Information temporarily unavailable Augmentin vomitting Drug Allergy Active Reason For Referral No Information Medications Medication SIG (Take, Route, Frequency, Duration) Notes Start Date End Date Status Atenolol 100 MG Tablet TAKE 1 TABLET BY MOUTH EVERY DAY Oral; Duration: 90 Active Diphenoxylate-Atropine 2.5-0.025 MG Tablet Oral; Duration: 30 Ac tive clonazePAM 0.5 MG Tablet Oral; Duration: 22 Active Buprenorphine HCl-Naloxone HCl 8-2 MG Film Sublingual; Duration: 30 Active Lomotil 2.5-0.025 MG Tablet 1 tablet as needed Orally Four times a day; Duration: 30 days 01/04/2025 Active Aspir-81 Active MiraLax (colon prep) 17 GM/SCOOP Powder mixed with Gatorade or Crystal Light Orally begin at 5:00 p.m. the day before the procedure; Duration: 1 day 07/08/2023 Active Tenormin 50 MG Tablet 1 tablet Orally On ce a day Active Adderall 10 MG Tablet 1 tablet in the mo rning Orally Once a day Active Testosterone Compounding Kit Active buPROPion HCl ER (XL) 450 MG Tablet Extended Release 24 Hour 1 tablet Orally Once a day Active Immunizations Vaccine Route Administration Date Status Comme nts Influenza Unknown 01/04/2019 Administered Influenza Unknown 01/05/2020 Administered Influenza Unknown 01/27/2023 Administered Social History Tobacco Use: Social History Observation Description Date Details (start date - stop date) Current Smoker NA - NA Social History Tobacco Use: Social Info Question Answer Notes Tobacco Use/Smoking Patient is a current smoker How often do you smoke cigarettes? every day How many cigarettes a day do you smoke? 6-10 How soon after you wake up do you smoke your first cigarette? 6-30 minutes Are you interested in quitting? 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 [place] [address] 01/02/2025 Jus Overton Jr Irritable bowel syndrome with diarrhea K58.0 Assessments Encounter Date Diagnosis (ICD Code) Assessment Notes Treatment Notes Treatment Clinical Notes Section Notes 01/02/2025 Irritable bowel syndrome with diarrhea (ICD-10 - K58.0) Plan Of Treatment Future Test Test Name Order Date COLONOSCOPY 01/23/2017 COLONOSCOPY 04/19/2020 COLONOSCOPY 04/20/2020 COLONOSCOPY 07/08/2023 Next Appt Details Provider Name:Jus quintero Jr, 05/11/2025 03:15:00 PM, [address] [place] [address], [address], [place], [address], Insurance Providers Payer Name Payer Address Payer Phone Subscriber Number Group Number Insured Name Patient Relationship to Insured Coverage Start Date Coverage End Date [facility] [address] [place] [phone] [id number] MIKE JUÁREZ Self - patient is the insured 3 Medical (General) History Medical History History ICD Code colonoscopy 04/26, tubular ad enoma, three-year followup, history of juvenile polyposis kidney disease alcohol abuse bipolar disorder hypertension Covid 19 infection 03/25 Surgical History Surgery Date(Month/Year) colectomy right knee arthroscopy ACL knee surgery
--- OUTSIDE RECORDS SUMMARY | 2025-03-05 02:29 | XMS_ITS | Clinical Summary ---
Author Organization [facility] Address [address] [place] [address] Care Team Providers Care Office Worker Name Role Phone Unavailable Primary Care Provider [...]
--- OUTSIDE RECORDS SUMMARY | 2025-03-05 02:29 | XMS_ITS | Clinical Summary ---
Author Organization [facility] Address [address] [place] [id number] Care Team Providers Care Milieu Technician Name Role Phone Unavailable Primary Care Provider Unavailabl e Encounters Date Type Department Care Team Description 02/13/2025 6:45 AM EST Ancillary Procedure [facility] [address] [place] [address] Provider, File Room 02/13/2025 6:40 AM EST Ancillary Procedure [facility] [address] [place] [address] Provider, File Room from Last 3 Months Social History Tobacco [...] IMG DIGITIZE FILMS Final Resu lt LEODAN [phone] from Last 3 Months
[2025-03-05 02:49] LABS: MANUAL DIFF FLAG NO
[2025-03-05 02:50] LABS: Hematocrit 43.7 % (42.0-52.0); Hemoglobin 14.8 g/dl (14.0-18.0); Imm Gran Abs Auto 0.03 X10*3/uL (0.00-0.03); Imm Gran Pct Auto 0.3 % (0.0-0.4); Lymphocytes Absolute Auto 2.9 X10*3/uL (1.2-4.9); Mean Corpuscular HGB Conc 33.9 g/dl (31.0-36.0); Mean Corpuscular Hemoglobin 27.9 pg (27.0-33.0); Mean Corpuscular Volume 82.5 fL (80.0-98.0); NRBC Abs Auto 0.000 X10*3/uL (0.0-0.012); NRBC Pct Auto 0.0 /100WBC (0.0-0.2); Platelet Count 301 X10*3/uL (160-400); Red Blood Count 5.30 X10*6/uL (4.60-5.80); White Blood Count 11.4 X10*3/uL (4.8-10.8)
[2025-03-05 03:08] LABS: Alanine Aminotransferase 30 U/L (0-40); Albumin Level 4.5 g/dL (3.5-5.0); Alkaline Phosphatase 125 U/L (39-117); Anion Gap 16 (12-20); Aspartate Amino Transferase 25 U/L (5-37); Blood Urea Nitrogen 17 mg/dL (9-16); Calcium 9.2 mg/dL (8.4-10.2); Carbon Dioxide 22 mmol/L (22-29); Chloride 114 mmol/L (96-108); Creatinine Clr Calc Pharmacy 81.9; Estimated Glomerular Filt Rate > 60; Magnesium 2.1 mg/dL (1.6-2.6); Potassium 3.9 mmol/L (3.3-5.1); Sodium 148 mmol/L (135-145); Total Protein 7.0 g/dL (6.5-8.0)
[2025-03-05 03:32] LABS: Resp Syncy Virus RNA Qual PCR NEGATIVE (Negative); SARS COV2 PCR INHOUSE NEGATIVE (Negative)
--- NOTE | 2025-03-05 05:34 | ED_ITS ---
HPI - General Adult General Chief complaint: General Medical Stated complaint: MULT FALLS PAST 6H PER EMS Time Seen by Provider: 03/05/25 05:43 Source: patient Mode of arrival: EMS Limitations: no limitations History of Present Illness ED Provider: Dr. Rolo Reynolds HPI narrative: 54-year-old male with a history of alcohol use disorder, ADHD, hypertension, depression, cervical spondylitic cord compression, who presents emergency department for evaluation of increased lower back pain times 2-3 days, increased weakness and numbness in his upper and lower extremity since November 2024 and 3 falls that occurred last night. Patient complains of progressive weakness of his upper and lower extremities. He also complains of progressive numbness in his hands and in his lower extremities. Patient states that last night he fell 3 times anymore. At the 1st episode was when he got off the toilet and then fell when he was walking back to his bed. Second episode was when he was trying to sit on a sofa and fell to the floor. He does not recount the details of the 3rd episode of falling. He denies any significant injury from his fall, he did not hit his head but he states he did scrape both his arm on the rug. He has also had several falls last week with no head injury. any in his falls. 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 During his admission he was treated with Solu- Medrol IV with improvement of his findings. Patient states that he was [facility] after the [facility] admission, was treated and discharged. Patient states that he is scheduled to follow up Neurosurgery at [facility] but he states that his symptoms have got progressively worse and he does not believe that he would be able to make the appointment. . He is currently complaining of severe pain in his lower back which has been coming on over the last 2-3 days and was present prior to his fall. States that the pain is 8/10 at its worse. Patient states he had 1 episode of bowel incontinence 1 week prior but no recent episodes. He denied urinary incontinence. Review of systems was negative for fever, chills, chest pain, shortness of breath, nausea, vomiting or diarrhea. He denied frequency, urgency or dysuria. Patient denies injection drug use but states that he started drinking alcohol filled again 2 days prior. He states he has been drinking 2-3 nips of fireball whiskey at night to try to help with his pain and to help him sleep. Exam: MRI of the cervical spine, including gadolinium enhanced imaging. Comparison: CT cervical spine 02/09/2025. 02/11/2025 Impression: 1. Moderate posterior disc-osteophyte complex and buckling of the ligamentum flavum at C3-4 result in bduigylp-ji-enljai central canal stenoses. There is a short segment of the cervical cord T2 hyperintensity at this level, most likely related to focal myelopathy or myelomalacia. 2. No other significant cervical cord signal abnormality. 3. Multilevel degenerative changes with a additional multilevel spinal and foraminal stenoses as described above. This document has been electronically signed by: Barrett Dye MD on 02/11/2025 14:01:39 Related Data Home Medications ?Medication ?Instructions ?Recorded ?Confirmed bupropion HCl 300 mg 24 hr tablet, 300 mg PO DAILY 04/3003/06/25 extended release clonazepam 0.5 mg tablet 0.5 mg PO BID PRN anxiety 03/06/25 dextroamphetamine-amphetamine 7.5 7.5 mg PO BID@0800,1 600 attention 12/05/24 03/06/25 mg tablet deficit hyperactivity disord er diphenoxylate-atropine 2.5 1 tab PO QID PRN loose stoo l 12/05/24 03/06/25 mg-0.025 mg tablet atenolol 100 mg tablet 100 mg PO DAILY 03/06/2504/30 methocarbamol 750 mg tablet 750 mg PO Q8H PRN Muscle S pasm/Pain 03/06/25 03/06/25 Previous Rx's ?Medication ?Instructions ?Recorded acetaminophen 325 mg tablet 975 mg (3 x 325 mg) PO Q6H PRN 02/13/25 Pain, Mild 1-3,Fever,Headache 15 days #60 tabs folic acid 1 mg tablet 1 mg PO DAILY 30 days #30 ta bs 02/13/25 multivitamin (Daily-Stevie tablet) 1 tab PO DAILY 30 day s #30 tabs 02/13/25 thiamine mononitrate (vit B1) 100 100 mg PO DAILY 30 d ays #30 tabs 02/13/25 mg tablet Allergies Allergy/AdvReac Type Severity Reaction Status Date / Time amoxicillin (Augmentin) AdvReac Severe Nausea and Verified 03/05/25 02:02 Vomiting clavulanic acid (Augmentin) AdvReac Severe Nausea and Verified 03/05/25 02:02 Vomiting NSAIDS Allergy Intermediate renal Uncoded 02/09/25 08:03 insuff Review of Systems 2 Review of Systems: Yes all other systems are reviewed and are negative [facility] Past Medical History [facility] Narrative: Social history: The patient denies tobacco use. He does drink alcohol. He states that he was sober for several months but over the last 2 days he has been drinking 2-3 shots of fireball whiskey at night to help with sleep and pain. He did drank 3 shots of whiskey last night. He denies injection drug use. Medical History Alcohol use disorder History of COVID-19 History of ADHD Depression HTN (hypertension) Surgical History H/O colonoscopy Hx of colectomy Hx of left inguinal hernia repair History of repair of ACL Hx of arthroscopy of knee Social History Social History Household Members: None Household Members Other:: PET Housing: Condominium Do you presently have visiting nurse or other home services: No Alcohol intake: current Alcohol intake frequency: 0-2 drinks per day Alcohol type: beer Patient Tobacco Use Status: Current everyday Tobacco user Tobacco use type: Cigarette Cigarette Packs Per Day: 0.5 Cigarettes Per Day: 15 Smoked in Last 30 Days: No e-Cigarette/Vaping Use: Never Used Second Hand Smoke Exposure: Yes Use of substances other than those prescribed or required for medical reasons: No Advance Directives: No Advance Directives Information Provided: Yes service: No Physical Exam ED Vital Signs: Vital Signs - 24 hr 03/09/25 06:11 03/09/25 08:14 03/09/25 09:51 Temperature 97.9 F 97.7 F Pulse Rate 60 62 60 Respiratory Rate 16 20 18 Blood Pressure 122/66 160/90 H 156/83 H Pulse Oximetry 97 100 100 Oxygen Delivery Method Room Air Room Air Room Air 03/09/25 12:28 03/09/25 14:15 03/09/25 14:32 Temperature 98 F 98.7 F 98.7 F Pulse Rate 52 57 57 Respiratory Rate 16 18 18 Blood Pressure 167/90 H 142/79 H 142/79 H Pulse Oximetry 100 99 99 Oxygen Delivery Method Room Air Room Air Room Air BMI result Body Mass Index 24.2 Vital signs revealed an elevated blood pressure of 158/103, heart rate was 100, temperature normal at 98.2 O2 saturation was normal at 100% Exam: General: Awake, alert , in moderate distress secondary to his lower back pain, the patient is unkempt and states he has been able to bathe for several days secondary to his weakness Head: Normocephalic, atraumatic EENT: PERRL, sclera and conjunctiva are normal, mouth with no erythema or exudates Neck: Patient does have tenderness palpation of his cervical spine as well as his trapezius muscles bilaterally, no point tenderness over the cervical spine Lung: breath sounds symmetric, no wheezing, no rales and no rhonchi Chest: symmetric movement, nontender Heart: regular rate and rhythm, normal S1, S2 no murmurs or rubs Abdomen: soft, non-tender, nondistended, normal bowel sounds Back: Tenderness palpation of the thoracic spine diffusely with no localizing point tenderness, tenderness with palpation of the paraspinal muscles in the lumbar sacral area with spasm of these muscles Extremities: Patient has upper extremity muscles appear to be wasting especially the muscles of his hands Neuro: General: ?Awake, alert, oriented, normal speech Cranial nerves: ?Cranial nerves 2-12 ?intact Strength: ?Patient appears to have wasting of the muscles of his hand and has significant weakness of the intertriginous muscles, patient can hold both upper extremities in the air against gravity but has significant bilateral symmetric weakness, he was also able to hold in his lower extremities up against gravity but significant weakness against resistance. Sensory: Diminished pinprick sensation to the hands and forearms bilaterally as well as the feet to knees bilaterally. Patient did have good rectal tone with normal bulbocavernous reflex, diminished perirectal pinprick sensation. Psych: Pleasant, cooperative Course Reevaluation(s) Reevaluation #1: 5:17 PM 03/08/2025 (Dr. Thee Maria): Nursing brought this patient to my attention at this time he was accepted for transfer to [facility] but had not yet had a bed assignment. He has med reconciliation in but requesting clonazepam slightly earlier for anxiety. Brief summary he has chronic neck pain with osteophytes and canal stenosis. Secretaries have called multiple times for bed assignment but this not yet available. Reevaluation #2: 03/09/2025 I received sign-out by Dr. Masterson at 7 AM patient is waiting to be transferred to [facility] he was accepted in transfer we are just waiting for the bed, he remained stable during my shift We just got a call from [facility] the they have a bed available so the patient will be transfer to [facility] Dr. Castañeda 11:30 03/09/2025 Time: 14:15 hours Date: 03/09/25 Provider: Rolo Reynolds MD Physician observation ended at 14:15 hours. Patient was transferred by ambulance to [facility] hospitalist service for further management. Time: 11:13 Medications Administered Discontinued Medications Generic Name Dose Route Start Last Admin Trade Name Freq PRN Reason Stop Dose Admin Acetaminophen 975 mg 03/05/25 08:28 03/06/25 10:12 Acetaminophen 325 Mg Tablet PO 975 mg Q6H PRN Administration Pain, Moderate(Pain Scale 4-6) Amphetamine/Dextroamphetamine 7.5 mg 03/05/25 08:24 03/05/25 10:33 Amphetamine Mixed Salts 10 Mg Tablet PO 03/05/25 08:25 7.5 mg BID ONE Administration Atenolol 100 mg 03/05/25 09:00 03/09/25 09:52 Atenolol 100 Mg Tablet PO 100 mg DAILY TORI Administration Protocol Bupropion HCl 300 mg 03/05/25 09:00 03/09/25 09:52 Bupropion Hcl Xl 300 Mg Tab.Er.24h PO 300 mg DAILY TORI Administration Clonazepam 0.5 mg 03/05/25 08:24 03/09/25 13:40 Clonazepam 0.5 Mg Tablet PO 0.5 mg BID PRN Administration Anxiety, agitation Dexamethasone Sodium Phosphate 10 mg 03/05/25 07:11 03/05/25 07:15 Dexamethasone Sod Phosphate 10 Mg/Ml Vial IVPUSH 03/05/25 07:12 10 mg ONCE ONE Administration Dexamethasone Sodium Phosphate 10 mg 03/06/25 10:00 03/09/25 09:52 Dexamethasone Sod Phosphate 10 Mg/Ml Vial IVPUSH 03/10/25 09:01 10 mg DAILY TORI Administration Dextroamphetamine Sulfate 7.5 mg 03/07/25 10:36 03/07/25 12:59 Dextroamphetamine Sulfate 5 Mg Tablet PO 03/07/25 10:37 Not Given ONCE ONE Hydromorphone HCl 1 mg 03/05/25 06:22 03/05/25 07:15 Hydromorphone Hcl 1 Mg/Ml Syringe IVPUSH 03/05/25 06:23 1 mg ONCE STA Administration Protocol Hydromorphone HCl 1 mg 03/05/25 08:26 03/09/25 12:31 Hydromorphone Hcl 1 Mg/Ml Syringe IVPUSH 1 mg Q4H PRN Administration Pain, Severe (Pain Scale 7-10) Protocol Sodium Chloride 1,000 mls @ 999 mls/hr 03/05/25 06:22 03/05/25 10:06 Ns IV 03/05/25 07:22 Infused .Q1H1M STA Infusion Medical Decision Making Medical Decision Making MDM Narrative: 54-year-old male with a history of alcohol use disorder, ADHD, hypertension, depression, cervical spondylitic cord compression diagonal during [facility] admission on 02/09/2025, subsequently admitted at [facility] for similar symptoms, treated discharged with outpatient follow up, who presents emergency department for evaluation of increased lower back pain times 2-3 days, increased weakness and numbness in his upper and lower extremity since November 2024 and 3 minor falls that occurred last night with no significant neck or head injury. Vital signs revealed an elevated blood pressure of 158/103 and a heart rate of 100 otherwise unremarkable. Physical examination did reveal significant weakness of the upper and lower extremities you may diminished pinprick to the upper and lower extremities as well as diminished perirectal pinprick sensation but normal sphincter tone. Patient had 1 episode of incontinence of stool 1 week prior but no urinary incontinence. Differential diagnosis: ?Includes but is not limited to cervical spinal cord compression, cauda equina syndrome, Guillain-Fayette syndrome, B12/folate deficiency, anemia, electrolyte abnormalities Course: 07:10 My interpretation patient's laboratory evaluation is as follows: Sodium and chloride elevated at 148 and 114 consistent with dehydration, BUN was elevated 17 with a normal creatinine. Electrolytes were unremarkable. Alk-phos elevated 128 otherwise CMP was normal. Ethanol was elevated 145-patient does admit to drinking 3 shots of fireball whiskey last night. During the patient's previous hospitalization at [facility] [facility] he did have a lumbar puncture that did reveal increased protein however neurology consult did not think that the patient had Guillain-Fayette syndrome and that the patient's symptoms were related to the cervical spine finding on the MRI. At this time I think that the patient has had progression of his cervical spondylitic cord compression causing his symptoms. The patient is having significant lower back pain and was treated with Dilaudid 1 mg IV and normal saline 1 L IV. Given the patient's neurologic findings in the progressive nature of his symptoms, that has frequent falls over the last week in his 3 falls last night, I do not think that the patient can be hospitalized here therefore I contacted [facility] and discuss the patient's presentation with the covering received neurosurgical provider. She recommended that the patient be presented to the medical service. She also recommended the patient be treated with Decadron 10 mg IV. 08:15 Start physician observation for medical observation pending transfer I did discuss the patient's presentation with the covering hospitalist, Maria Esther at [facility]. She did accept the patient as an ED to Hospital transfer. Transfer line states that they are are normal operations and they should have a bed available this afternoon for the patient. I ordered the patient's outpatient medication regimen to include atenolol, Wellbutrin, clonazepam and Adderall. Patient was also ordered to get Dilaudid 1 mg IV Q 4 hours prn pain 7-10 and Tylenol 975 p.o. q.6 hours PRN pain 4-6. We will continue to monitor the patient's vital signs and pain level while he is here in the emergency department. 16:21 Continue physician observation. At the end of my shift, a bed is still not available at [facility]. Patient has gotten repeat doses of Dilaudid 1 mg IV for his back pain. At the end of my shift, patient's care was turned over to my colleague, Dr. Nava 03/06/25 Provider: Rolo Reynolds MD 09:59 Patient in physician observation medical management pending transfer to [facility] inpatient unit.? Patient continues to complain of back pain in his being treated with Dilaudid 1 mg q.4 hours prn and Tylenol 975 mg Q 4-6 hours prn pain. Patient has been able to eat and drink without any difficulty. I ordered the patient's outpatient medication regimen. I also ordered dexamethasone 10 mg IV Q day while he is here in the emergency department. I did speak to the patient's sister who is a nurse here at [facility] [facility]. She is concerned about the patient's alcohol use disorder in the fact that he has been in her of the hospital frequently with no resolution or improvement of his symptoms. Patient will continue in physician observation. We will continue to monitor. 16:00 Physician observation continued: We checked multiple times with [facility] through out the day and they still do not have a bed on the hospitalist service for this patient. The patient has been evaluated by [facility] neurosurgery and was recently admitted to [facility] therefore it would be best for continuity of his care to be transferred to [facility]. Therefore we will continue to treat and monitor the patient until he can be transferred. At the end of my shift, the patient's care was turned over to my colleague, Dr. Nava. Differential Diagnosis Differential Diagnoses: The differential diagnosis associated with the presentation includes (See above) Admission/Observation Consideration of admission/observation: Escalation of care including admission/observation considered (Yes) Lab Data MDM Lab Attestation statement: I reviewed the patient's lab results. 03/05/25 02:37 03/05/25 02:37 Labs: Lab Results 03/05/25 03/05/25 Range/Units 02:37 06:50 WBC 11.4 H (4.8-10.8) X10*3/uL RBC 5.30 (4.60-5.80) X10*6/uL Hgb 14.8 (14.0-18.0) g/dl Hct 43.7 (42.0-52.0) % MCV 82.5 (80.0-98.0) fL MCH 27.9 (27.0-33.0) pg MCHC 33.9 (31.0-36.0) g/dl RDW 15.2 (11.0-16.0) % Plt Count 301 (160-400) X10*3/uL MPV 9.3 L (9.4-12.4) fL Immature Gran % (Auto) 0.3 (0.0-0.4) % Neut % (Auto) 62.9 (45-73) % Lymph % (Auto) 25.9 (20-40) % Cabell % (Auto) 7.8 (2-11) % Eos % (Auto) 2.3 (0-4) % Baso % (Auto) 0.8 (0-2) % Lymph # (Auto) 2.9 (1.2-4.9) X10*3/uL [place]ell # (Auto) 0.9 (0.1-1.2) X10*3/uL Eos # (Auto) 0.3 (0.0-0.4) X10*3/uL Baso # (Auto) 0.1 (0.0-0.2) X10*3/uL Abs Immat Gran (auto) 0.03 (0.00-0.03) X10*3/uL Absolute Neuts (auto) 7.1 (2.0-8.3) x10*3/uL Absolute Nucleated RBC 0.000 (0.0-0.012) X10*3/uL Nucleated RBC % (auto) 0.0 (0.0-0.2) /100WBC Sodium 148 H (135-145) mmol/L Potassium 3.9 (3.3-5.1) mmol/L Chloride 114 H (96-108) mmol/L Carbon Dioxide 22 (22-29) mmol/L Anion Gap 16 (12-20) BUN 17 H (9-16) mg/dL Creatinine 0.93 (0.5-1.4) mg/dL Estim Creat Clear Calc 81.9 Estimated GFR > 60 Random Glucose 87 (60-115) mg/dL Calcium 9.2 (8.4-10.2) mg/dL Magnesium 2.1 (1.6-2.6) mg/dL Total Bilirubin 0.3 (0.0-1.0) mg/dL AST 25 (5-37) U/L ALT 30 (0-40) U/L Alkaline Phosphatase 125 H (39-117) U/L Total Protein 7.0 (6.5-8.0) g/dL Albumin 4.5 (3.5-5.0) g/dL Vitamin B12 419 (200-900) pg/mL Folate 8.8 (> or = 4.0) ng/mL Ethyl Alcohol 145 mg/dL Influenza Type A (PCR) NEGATIVE (Negative) Influenza Type B (PCR) NEGATIVE (Negative) RSV RNA Qual (PCR) NEGATIVE (Negative) SARS-CoV-2 RNA (RT-PCR) NEGATIVE (Negative) Radiology Impression Discussion of test interpretation with radiology: I have reviewed the radiologist's reading. Radiologist Impression: Date of Service: 02/11/25: Please note that this MRI was done during the patient's admission to [facility] from 02/09/2025 until 02/11/2025 Reason for Exam: Lower leg weakness, R/O TRANSVERSE MYELITIS CLINICAL HISTORY: Lower leg weakness, R O TRANSVERSE MYELITIS --- Additional Notes or Special Instructions: Neurology would like imaging to rule out transverse myelitis Exam: MRI of the cervical spine, including gadolinium enhanced imaging. Comparison: CT cervical spine 02/09/2025. Findings: Cervical vertebral body heights and alignment appear maintained. There are Modic type 1 endplate signal changes, most significant at C3-4 and C6-7 levels. There is diffuse disc desiccation. There is disc space narrowing, more significant at C3-C5 and C6-7 levels. There is focal T2 hyperintensity within the cervical cord at C3-4 level (7; 9 and less well delineated on 8; 12), associated with spinal stenoses, likely related to short segmental myelopathy (extending over a craniocaudad distance of the proximally 9 mm, measured on 7; 9). Remaining cervical cord signal intensity appears well-maintained. Axial images reveal the following: C2-3: No focal disc herniation, spinal or foraminal compromise. C3-4: Moderate posterior disc-osteophyte complex and mild buckling of the ligamentum flavum result in yapxwoqj-ql-fqmhik central canal stenoses (9; 12 and 8; 12). There is bilateral mild facet arthropathy, left worse than right, and mild bilateral uncovertebral joint hypertrophy. Findings result in significant bilateral foraminal stenoses at this level. C4-5: Mild posterior disc-osteophyte complex and left worse than right uncovertebral joint hypertrophy are present. Findings result in mild central canal stenoses as well as fasozjqx-bj-dernih left foraminal stenoses. No significant right foraminal stenoses. C5-6: Mild posterior disc-osteophyte complex and right worse than left uncovertebral joint hypertrophy as well as mild bilateral facet arthropathy are present. Findings result in mild central canal stenoses as well as bilateral jfzsiejt-vn-xgvzqm foraminal stenoses. C6-7: Mild posterior disc-osteophyte complex and bilateral uncovertebral joint hypertrophy are present. Findings result in msav-yn-eokqysvp central canal stenoses (9; 23 and 8; 23), as well as bilateral lzlghpsw-qq-zbmgwp foraminal stenoses. Gadolinium enhanced imaging reveals no abnormal epidural or paraspinal enhancement. No enhancing intradural lesions. Impression: 1. Moderate posterior disc-osteophyte complex and buckling of the ligamentum flavum at C3-4 result in jrhvesdc-ck-jqphum central canal stenoses. There is a short segment of the cervical cord T2 hyperintensity at this level, most likely related to focal myelopathy or myelomalacia. 2. No other significant cervical cord signal abnormality. 3. Multilevel degenerative changes with a additional multilevel spinal and foraminal stenoses as described above. This document has been electronically signed by: Barrett Dye MD on 02/11/2025 14:01:39 Dictated By: Barrett Dye MD Discharge Plan Discharge Clinical Impression: Cervical spinal stenosis, Bilateral arm weakness, Bilateral leg weakness, Multiple falls, Cervical spinal cord compression [facility] Transfer Details: [facility] ED to hospital transfer, accepting physician, Dr. Oswaldo LIU 5A, ROOM 55A, [phone] Prescriptions: No Action dextroamphetamine-amphetamine 7.5 mg tablet 7.5 mg PO BID@0800,1600 clonazepam 0.5 mg tablet 0.5 mg PO BID PRN (Reason: anxiety) diphenoxylate-atropine 2.5-0.025 mg tablet 1 tab PO QID PRN (Reason: loose stool) bupropion HCl 300 mg tablet extended release 24 hr 300 mg PO DAILY acetaminophen 325 mg Tablet 975 mg PO Q6H PRN (Reason: Pain, Mild 1-3,Fever,Headache) 15 Days Qty: 60 0RF folic acid 1 mg Tablet 1 mg PO DAILY 30 Days Qty: 30 0RF multivitamin [Daily-Stevie] Tablet 1 tab PO DAILY 30 Days Qty: 30 0RF thiamine mononitrate (vit B1) 100 mg Tablet 100 mg PO DAILY 30 Days Qty: 30 0RF methocarbamol 750 mg tablet 750 mg PO Q8H PRN (Reason: Muscle Spasm/Pain) atenolol 100 mg tablet 100 mg PO DAILY Referrals: [facility] [Outside] Shauna Hale MD [Primary Care Provider, Internal Medicine] Interventions: Acute Care Transfer Worksheet (ED) Last Done: 03/09/25 14:15 Discharge Date/Time: 03/09/25 14:15 Print Language: Afghan
[2025-03-05 07:47] LABS: Folate 8.8 ng/mL (> or = 4.0); Vitamin B12 419 pg/mL (200-900)
[2025-03-05] MEDS: buPROPion HCl XL 300 MG TAB.ER.24H PO (10:32)
[2025-03-05] MEDS: Amphetamine Mixed Salts 10 MG TABLET 7.5 MG PO (10:33)
--- NOTE | 2025-03-05 16:17 | PC.NURSE ---
Pt starting to have increased anxiety. PRN Klonopin given. VSS
--- NOTE | 2025-03-05 17:59 | PC.NURSE ---
Pt sitting up eating dinner. Needed assistance sitting on side of bed
[2025-03-06] VITALS (8 sets, daily range): BP systolic 133–164; BP diastolic 77–95; PULSE 57–79; RESP 12–20; TEMP 36.4–36.9; O2SAT 95–100
[2025-03-06] MEDS: buPROPion HCl XL 300 MG TAB.ER.24H PO (10:12)
--- NOTE | 2025-03-06 10:20 | PC.NURSE ---
assumed care of pt at 0645. pt a&ox4. vss and up to date. nsr on the patient registrar. on RA baseline as well as currently w/o difficulty. pt medicated per provider order - swallows pills whole w/ water w/o difficulty. some assistance needed while holding medicine cup/water cup as he is c/o increased weakness to UE/LE bilaterally. pt continues to pend bed assignment/transfer to [facility] at this time. pt's sister bedside requesting update. patient as well as family member provided w/ update by MD. pt otherwise offers no complaints aside from increased lower back pain. prn tylenol utilized. will utilize prn dilaudid when able. respirations otherwise even/unlabored. lights dimmed to promote comfort. plan of care ongoing. call morris placed within reach.
--- NOTE | 2025-03-06 13:00 | PHA.MEDREC ---
Addendum entered by Anabel Snow RPh 03/06/25 14:21: MED REC REVIEWED BY [facility] Original Note: Pharmacy Consult ? Medication Reconciliation Pharmacy has completed the medication reconciliation. Spoke with pt and he confirmed his medications. Pt states he is not taking the Pantoprazole and never started taking that med and pt ran out of his Atenolol 100mg tabs about 1 month ago and just discharged with us 02/14 with plan to start on Amlodipine 5mg once daily, but states he never picked that up from his pharmacy to start.
[2025-03-07] VITALS (10 sets, daily range): BP systolic 136–165; BP diastolic 73–89; PULSE 53–65; RESP 12–20; TEMP 36.6–36.8; O2SAT 97–100
--- NOTE | 2025-03-07 00:45 | PC.NURSE ---
Pt reporting 10/10 lower back pain, requesting PRN medication. Pt medicated as charted. Pt breathing unlabored. Skin pwd. Pt nsr on tele. Plan of care ongoing. Call morris within reach.
--- NOTE | 2025-03-07 07:38 | PC.NURSE ---
assumed care of patient at 0715. report received from Peggy GUERRERO.
[2025-03-07] MEDS: buPROPion HCl XL 300 MG TAB.ER.24H PO (10:22)
--- NOTE | 2025-03-07 20:00 | PC.NURSE ---
assumed care of pt. respirations even and unlabored. no complaints at this time. pt in bed, request cheryle baron and david reagan, this was taken to pt, urinal emptied.
--- NOTE | 2025-03-07 21:33 | PC.NURSE ---
pt reports having 10/10 pain
--- NOTE | 2025-03-07 22:09 | PC.NURSE ---
pt medicated with PRN medication for pain per MAR.
[2025-03-08] VITALS (12 sets, daily range): BP systolic 135–165; BP diastolic 71–90; PULSE 52–63; RESP 15–18; TEMP 36.3–36.8; O2SAT 96–100
[2025-03-08] MEDS: buPROPion HCl XL 300 MG TAB.ER.24H PO (09:04)
--- NOTE | 2025-03-08 16:00 | PC.NURSE ---
[facility] contacted regarding patient bed assignment, no beds available, possiblity of a bed tomorrow. MD Crow notified.
--- NOTE | 2025-03-08 17:13 | PC.NURSE ---
MD JIANG'marycarmen early administration of Klonopin
--- NOTE | 2025-03-08 17:15 | PC.NURSE ---
Pt alert and oriented, breathing even and unlabored. Pt reporting intermittent mild anxiety today, no other signs of withdrawal. Pt medicated per JUN PRNs for pain. Pt comfortable resting in bed. Ate his breakfast and lunch. VSS
--- NOTE | 2025-03-08 21:25 | MHC.EDTECH ---
Pt drank 1.5 cups of cranberry juice and allowed vitals to be taken.
[2025-03-09 06:11] VITALS: BP 122/66; PULSE 60; RESP 16; TEMP 36.6; O2SAT 97
[2025-03-09 08:14] VITALS: BP 160/90; PULSE 62; RESP 20; TEMP 36.5; O2SAT 100
--- NOTE | 2025-03-09 08:32 | PC.NURSE ---
pt is alert and oriented, skin flushed in the face, pt is reporting lower back pain at 7/10, pt medicated for pain control per MAR, Dr Kennedy at bedside speaking with the pt about getting [place] [facility] [place] kennedy did want to see how the pt ambulated got him up and took few steps the pt actually did pretty good- slow
[2025-03-09 09:51] VITALS: BP 156/83; PULSE 60; RESP 18; O2SAT 100
[2025-03-09] MEDS: buPROPion HCl XL 300 MG TAB.ER.24H PO (09:52)
--- NOTE | 2025-03-09 10:15 | PC.NURSE ---
offered the pt to be able to shower in the psy pod but pt said not at this time, a little tired
--- NOTE | 2025-03-09 11:16 | PC.NURSE ---
report given to tram coello at [facility]
[2025-03-09 12:28] VITALS: BP 167/90; PULSE 52; RESP 16; TEMP 36.6; O2SAT 100
[2025-03-09 14:15] VITALS: BP 142/79; PULSE 57; RESP 18; TEMP 37.1; O2SAT 99
[2025-03-09 14:32] VITALS: BP 142/79; PULSE 57; RESP 18; TEMP 37.1; O2SAT 99
== END 2025-03-09 14:15 | disposition short-term general hospital (02) ==
PROVIDERS: Emergency Medicine Emergency Medical Services; Emergency Provider Emergency Medicine; PCP Internal Medicine
DX: M48.02 Spinal stenosis, cervical region (principal); R53.1 Weakness; G95.29 Other cord compression; E86.0 Dehydration; F10.90 Alcohol use, unspecified, uncomplicated; I10 Essential (primary) hypertension; F41.9 Anxiety disorder, unspecified; F90.9 Attention-deficit hyperactivity disorder, unspecified type; Z91.81 History of falling; Z79.899 Other long term (current) drug therapy
CPT/HCPCS: 36415; 80053; 80307; 82607; 82746; 83735; 85025; 87637; 96361; 96374; 96375; 96376; 99285; J1100; J1171